=== PATIENT | female | born 1995 | race Caucasian/White ===

== ENCOUNTER 2016-08-17 10:58 | Emergency (ER) | payer MEDICAID ==
[~2016-08-17] VITALS: Ht 175.3 cm; Wt 136.1 kg
[2016-08-17] MEDS ORDERED: HYDROCHLOROTHIA25 M1 PO (11:08)
--- NOTE | 2016-08-17 11:23 | Emergency Room Report ---
History of Present Illness Time Seen by [id number] Presenting Problem in Triage Pt arrived:Walked Presenting Problem:PT ADVISES SHE WOKE UP THIS AM AND FELT LIKE SHE WAS SOA. 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 N Clinical Suspician of Infection? N Mental Status: 1 - Regular (Normal Baseline) Sepsis Risk:Low Sepsis Risk Have you (or family members/close friends) recently traveled outside the [place]? N If Yes, where/when: Have you had exposure to infectious disease within the past month? N TB? Other? Specify: Comment The patient states that she woke up this morning with shortness of breath, vomiting, and diarrhea. 3 episodes of vomiting and diarrhea. Her shortness of air feels like air hunger. No chest pain. No fever or coughing. No hemoptysis. No leg pain or swelling. No recent travel or hospitalizations, although she did have a pin removed from her RIGHT hip 2 months ago, she says it was done under local anesthetic. No history of asthma or other lung problems. Last normal menstrual period was in June and she wants a test. ALLERGIES Coded Allergies: No Known Allergies (08/17/16) Home Medications Reported Medications HYDROCHLOROTHIAZIDE (Hydrochlorothiazide) 25 MG PO DAILY History Medical History General CAD? No Angina: No [place]: No Hypertension? Yes Hyperlipidemia? No CHF? No DVT? No PE? No COPD? No Asthma? No Anemia? No GERD? No Gastric ulcers? No GI Bleed? No Hernia? No Thyroid Problems? No Hypothyroidism? No CVA? No Seizures? No Diabetes? No Renal Insuffiency? No End Stage Renal Disease? No UTI? No Stones? No BPH? No GB Disease: No Nephritic Syndrome? No Asplenia? No Hepatitis? No Sickle Cell Disease? No Arthritis? No Migraines? No Cataracts? No Glaucoma? No MRSA? No HIV? No TB? No Anxiety? No Depression? No Cancer? No More? 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 Social History Smoking Hx Smoker: Never Smoker Tobacco: No Alcohol Alcohol: No Review of Systems All Other Systems Reviewed and Negative Constitutional denies fever Respiratory denies cough, shortness of breath Cardiovascular denies chest pain Gastrointestinal denies abdominal pain, diarrhea, vomiting Physical Exam Vital Signs Vital Signs Date Time Temp Pulse Resp B/P Pulse O2 O2 Flow FiO2 Ox Delivery Rate 08/17 1143 102 16 147/98 98 08/17 1103 98.9 107 16 165/110 98 General Appearance obese Eye Exam - bilateral eye normal exam, bilateral eye PERRL, bilateral eye EOMI Ear, Nose, Throat hearing grossly normal, normal ENT inspection Neck normal inspection, non-tender, supple, full range of motion Respiratory Status Yes: trachea midline, chest symmetrical. No: respiratory distress. Lung Sounds bilateral: normal breath sounds, lungs clear. 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 No Results/Orders Laboratory Tests 08/17/16 1135: Sodium 143, Potassium 3.4 L, Chloride 105, Carbon Dioxide 29, BUN 8, Creatinine 0.5 L, Estimated Creat Clear 386 H, Estimated GFR (MDRD) 157, Glucose 91, Calcium 9.0, Total Bilirubin 0.2, AST 13 L, ALT 40, Alkaline Phosphatase 95, Troponin I < 0.02, Total Protein 7.2, Albumin 3.5, Globulin 3.7 H, Albumin/ Globulin Ratio 0.9 L, D-Dimer < 100, WBC 9.3, RBC 4.23, Hgb 12.6, Hct 37.7, MCV 89.0, RDW 13.2, Plt Count 341, MPV 5.8 L, Gran % 68.7, Gran # 6.4, Lymphocytes % 25.5, Monocytes % 4.6, Eosinophils % 0.9, Basophils % 0.2, Lymphocytes # 2.4, Monocytes # 0.4, Eosinophils # 0.1, Basophils # 0.0, PUBS MCHC 33.4, MCH 29.8 Current Medication Orders Sig/Jamal Start time Last Medication Dose Route Stop Time Status Admin Sodium Chloride 10 ML PRN PRN 08/17 1130 AC IV 08/18 1128 Orders Procedure Date/time Status ELECTROCARDIOGRAM REQUEST 08/17 112 Active CHEST(2 VIEWS-NOT PORTABLE) 08/17 112 Active IV SALINE LOCK 08/17 112 Active TROPONIN I 08/17 1128 Complete SERUM , QUAL 08/17 112 Complete D-DIMER 08/17 1128 Complete CBC WITH AUTO DIFF 08/17 1128 Complete CHEM 12 PROFILE 08/17 1128 Complete CM/EKG CM/EKG Comments EKG interpreted by Edouard Tao MD: Rhythm: sinus Rate: 75 [place]: normal Ectopy: none Conduction: normal ST Segment Changes: none T Wave Changes: none Q Waves: none No evidence of acute ischemia or injury Baseline artifact present, but I consider the EKG adequate for accurate interpretation. Progress - I estimate there is LOW risk for PULMONARY EMBOLISM, PULMONARY EDEMA, PNEUMONIA, PNEUMOTHORAX, STATUS ASTHMATICUS, ACUTE RESPIRATORY FAILURE, OR ACUTE CORONARY SYNDROME, thus I consider the discharge disposition reasonable. The patient declines any prescriptions for nausea or diarrhea. She feels this has resolved. Departure Departure Disposition DC Home or Self Care(routine) Clinical Impression Primary Impression: Acute gastroenteritis Secondary Impressions: Shortness of breath Condition STABLE Patient Instructions DI for Shortness of Breath, DI for Viral Gastroenteritis -- Adult Additional Instructions Additional instructions for SHORTNESS OF BREATH: See your physician as soon as possible for further evaluation. Return immediately if worsening shortness of breath or if vomiting, chest pain, fever, coughing of blood, or passing out. ED Critical Care Critical Care No at [id number]
[2016-08-17 11:44] LABS: HEMOGLOBIN 12.6 g/dL (12.2-16.2); LYMPH # 2.4 K/mm3 (0.7-4.5); LYMPH % 25.5 % (10-50.0)
[2016-08-17 11:58] LABS: BUN 8 mg/dL (7-18)
[2016-08-17 11:59] LABS: GFR (ESTIMATED) 157 ML/MIN (59-)
[2016-08-17 12:51] VITALS: BP 160/94
--- NOTE | 2016-08-17 14:56 | RADIOLOGY REPORT PS360 ---
CHEST(2 VIEWS-NOT PORTABLE) HISTORY: soa ORDERING PHYSICIAN: Edouard Tao MD PATIENT AGE: 21 years COMPARISON: None available FINDINGS: The cardiomediastinal silhouette and pulmonary vascularity are within normal limits. The lungs are clear without infiltrates, suspicious nodules, or pleural effusions. No acute bony abnormalities. There are mild degenerative changes in the thoracic spine. IMPRESSION: Negative chest, no acute finding
== END 2016-08-17 12:51 | disposition home or self-care (01) ==
LOC: ER 10:58
PROVIDERS: Emergency Medicine
DX: K52.9 Noninfective gastroenteritis and colitis, unspecified (principal); R06.02 Shortness of breath; I10 Essential (primary) hypertension; Z79.899 Other long term (current) drug therapy

== ENCOUNTER 2017-02-12 19:10 | Emergency (ER) | payer MEDICAID ==
[~2017-02-12] VITALS: Ht 175.3 cm; Wt 104.3 kg
[~2017-02-12 19:10] MED LIST: CIPRO 250MG TA250 MG PO; HYDROCHLOROTHIA25 M1 PO; ONDANSETRON4 M1 PO; PROTONIX40 MG PO; ZOFRAN4 MG PO
[2017-02-12] MEDS ORDERED: METOPROLOL SUCC25 M1 PO (19:24)
[2017-02-12] MEDS ORDERED: SERTRALINE 100100 MG PO (19:24)
--- NOTE | 2017-02-12 19:41 | Emergency Room Report ---
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 N Clinical Suspician of Infection? N Mental Status: 1 - Regular (Normal Baseline) Sepsis Risk:Low Sepsis Risk Have you (or family members/close friends) recently traveled outside the [place]? N If Yes, where/when: Have you had exposure to infectious disease within the past month? N TB? Other? Specify: 21 years old white female on control pills who woke up this morning with a headache took Tylenol then developed vomiting and abdominal pain followed by diarrhea. Her headache has resolved, but she vomited 4 times today. She is unable to tolerate by mouth intake. 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 N Clinical Suspician of Infection? N Mental Status: 1 - Regular (Normal Baseline) Sepsis Risk:Low Sepsis Risk Have you (or family members/close friends) recently traveled outside the [place]? N If Yes, where/when: Have you had exposure to infectious disease within the past month? N TB? Other? Specify: Cardiac Chest Pain Chest pain indicative of cardiac No Timing/Duration this evening Severity moderate Home Medications Active Scripts Pantoprazole Sodium (Protonix) 40 MG PO DAILY #30 ECT Prov: 09/16/16 ONDANSETRON HCL (Zofran 4MG Tab) 4 MG PO Q6HP PRN NAUSEA AND VOMITING #20 TAB Prov: 09/16/16 Reported Medications HYDROCHLOROTHIAZIDE (Hydrochlorothiazide) 25 MG PO DAILY Metoprolol Succinate Xl (Metoprolol ER 25MG) 25 MG PO DAILY Sertraline Hydrochloride (Sertraline 100MG) 100 MG PO DAILY (Arnaud GARCIA,Sarah Gomez) History Medical History General CAD? No Angina: No [place]: No Hypertension? Yes Hyperlipidemia? No CHF? No DVT? No PE? No COPD? No Asthma? No Anemia? No GERD? No Gastric ulcers? No GI Bleed? No Hernia? No Thyroid Problems? No Hypothyroidism? No CVA? No Seizures? No Diabetes? No Renal Insuffiency? No End Stage Renal Disease? No UTI? No Stones? No BPH? No GB Disease: No Nephritic Syndrome? No Asplenia? No Hepatitis? No Sickle Cell Disease? No Arthritis? No Migraines? No Cataracts? No Glaucoma? No MRSA? No HIV? No TB? No Anxiety? No Depression? No Cancer? No More? 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 Respiratory no symptoms reported Cardiovascular no symptoms reported Gastrointestinal see HPI, abdominal pain, diarrhea, nausea, vomiting Genitourinary no symptoms reported. Musculoskeletal no symptoms reported Skin no symptoms reported Psychiatric/Neurological see HPI, headache (resolved ) (Sunita Nicolas MD) Physical Exam Vital Signs Vital Signs Date Time Temp Pulse Resp B/P Pulse O2 O2 Flow FiO2 Ox Delivery Rate 02/13 1956 98.0 88 18 145/86 97 02/12 1914 97.9 107 18 151/92 97 - WBC >12,000 or <4,000 or 10% bands? 2 or more SIRS Criteria Met? B/P:151/92 MAP:111 Creatinine >2.0? UA output<0.5ml/kg/hr for 2 hrs? Platelet count >100,000? Lactate >2.0mmol/1? INR >1.2 or PTT > than 60 sec? Evidence of Organ Dysfunction? Provider documented clinical suspician of infection? N Sepsis Criteria Count: 1 Sepsis Risk: Low Sepsis Risk General Appearance normal appearance, WD/WN Eye Exam - bilateral eye normal exam, bilateral eye PERRL, bilateral eye EOMI Ear, Nose, Throat hearing grossly normal, normal ENT inspection Neck normal inspection, non-tender, supple, full range of motion Respiratory Status Yes: trachea midline, chest symmetrical, non tender chest. No: respiratory distress. Lung Sounds bilateral: normal breath sounds, lungs clear. 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 2 or more SIRS Criteria Met? B/P:145/86 MAP:111 Creatinine >2.0? UA output<0.5ml/kg/hr for 2 hrs? Platelet count >100,000? Lactate >2.0mmol/1? INR >1.2 or PTT > than 60 sec? Evidence of Organ Dysfunction? Provider documented clinical suspician of infection? N Sepsis Criteria Count: 1 Sepsis Risk: Low Sepsis Risk General Appearance no apparent distress Extremities normal inspection Strength 4 Upper Ext (L), 4 Upper Ext (R), 4 Lower Ext (L), 4 Lower Ext (R) Comment tender rt upper abd with pos murphys sign Skin intact (Arnaud GARCIA,Sarah Gomez) Medical Decision Making LABS/Meds/Orders Pt receiving controlled substance in ED? No Results/Orders Laboratory Tests 02/12/171999: Urine Color YELLOW, Urine Appearance SL CLOUDY, Urine pH 6.5, Ur Specific [place] >= 1.030, Urine Protein 1+ H, Urine Ketones NEGATIVE, Urine Blood TRACE -INTACT, Urine Nitrate NEGATIVE, Urine Bilirubin NEGATIVE, Urine Urobilinogen 0.2, Ur Leukocyte Esterase NEGATIVE, Urine RBC 3-5, Urine WBC OCC, Ur Squamous Epith Cells 5-10, Amorphous Sediment TRACE, Urine Mucus 2+, Urine Glucose NEGATIVE 02/12/17 1936: Sodium 137, Potassium 3.3 L, Chloride 99, Carbon Dioxide 30, BUN 9, Creatinine 0.7, Estimated Creat Clear 211 H, Estimated GFR (MDRD) 107, Glucose 118 H, Calcium 9.3, Total Bilirubin 0.3, AST 23, ALT 42, Alkaline Phosphatase 93, Total Protein 8.3 H, Albumin 4.0, Globulin 4.3 H, Albumin/Globulin Ratio 0.9 L, Amylase 32, Lipase 137, WBC 12.5, RBC 4.49, Hgb 12.9, Hct 39.4, MCV 87.6, RDW 13.4, Plt Count 337, MPV 7.7, Gran % 74.2, Gran # 9.2 H, Lymphocytes % 21.1, Monocytes % 3.5, Eosinophils % 1.1, Basophils % 0.2, Lymphocytes # 2.6, Monocytes # 0.4, Eosinophils # 0.1, Basophils # 0.0, PUBS MCHC 32.7, MCH 28.7 Current Medication Orders Sig/Jamal Start time Last Medication Dose Route Stop Time Status Admin Loperamide HCl 0 .STK-MED ONE 02/12 1947 DC PO Loperamide HCl 4 MG ONCE ONE 02/12 1945 DC 02/12 PO 02/12 Ondansetron HCl 8 MG ONCE ONE 02/12 1945 DC 02/12 IV 02/12 Sodium Chloride 1,000 ML .Q1H1M 02/12 1945 AC 02/12 IV 02/12 Sodium Chloride 10 ML PRN PRN 02/12 1945 AC IV 02/13 1942 Sodium Chloride 1,000 ML .STK-MED ONE 02/12 1945 DC IV Ondansetron HCl 4 MG ONCE ONE 02/12 1930 CAN IV 02/12 1931 Ondansetron HCl 0 .STK-MED ONE 02/12 1930 DC .ROUTE Sodium Chloride 10 ML PRN PRN 02/12 1930 AC IV 02/13 1926 Orders Procedure Date/time Status URINALYSIS/COMPLETE 02/12 2003 Complete URINE 02/12 2003 Complete DIARRHEA PANEL, PCR 02/12 1943 Active IV SALINE LOCK 02/12 1927 Active LIPASE 02/12 1927 Complete COMPLETE METABOLIC PANEL 02/12 1927 Complete CBC WITH AUTO DIFF 02/12 1927 Complete AMYLASE 02/12 1927 Complete Departure Departure Time of Disposition 1937 Condition STABLE Discharge Counseling Counseled pt/family regarding diagnosis, follow up needs ED Critical Care Critical Care No If Critical Care minutes are documented, the time involved in the performance of seperately reportable procedures was not counted toward critical care time documented. I directly delivered medical care to this critically ill and/or injured patient. Timely evaluation and treatment was necessary to address the significant organ system(s) dysfunction present in this patient. (Sunita Nicolas MD) Departure Disposition DC Home or Self Care(routine) Clinical Impression Primary Impression: NAUSEA WITH VOMITING, UNSPECIFIED Secondary Impressions: Abdominal pain Qualifiers: Abdominal location: right upper quadrant Qualified Code: R10.11 - Right upper quadrant pain DIARRHEA, UNSPECIFIED Patient Instructions DI for Vomiting -- Adult Additional Instructions fluids and see pcp for follow up and consider gb eval Discharge Counseling Counseled pt/family regarding diagnosis, test results (Sarah Lares MD) at 1941 at 2035
[2017-02-12 19:46] LABS: HEMOGLOBIN 12.9 g/dL (12.2-16.2); LYMPH # 2.6 K/mm3 (0.7-4.5); LYMPH % 21.1 % (10-50.0)
[2017-02-12 20:23] LABS: URINE BILIRUBIN - DIPSTICK NEGATIVE (NEG); URINE BLOOD TRACE-INTACT (NEG)
[2017-02-12 20:37] VITALS: BP 145/86
--- OUTSIDE RECORDS SUMMARY | 2017-02-17 21:52 | External Medical Summary Rpt | CCD ---
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 Care Glass Novelty Maker Name Role Phone GURMEET IRF, GURMEET Unavailable Unavailable IRF GURMEET IRF, GURMEET Unavailable Unavailable IRF ADLER, ADLER Unavailable Unavailable ADLER, ADLER Unavailable Unavailable ADLER, ADLER Unavailable Unavailable [facility], Unavailable Unavailable [facility] PALLAVI GARCIA MARTHA, Unavailable Unavailable PALLAVI GARCIA MARTHA JACKI MARTHA, Unavailable Unavailable JACKI MARTHA PREMA CRY, Unavailable Unavailable PREMA CRY PREMA CRY, Unavailable Unavailable PREMA CRY [place]NA JULIAN, Unavailable Unavailable [place] JULIAN DOBAY, III, DOBAY, Unavailable Unavailable III DOERGER KIR, DOERGER Unavailable Unavailable SKYE BLACK JR, FULLER, Unavailable Unavailable [facility] GILJOCELYN, VAMSI F, Unavailable Unavailable GILVAMSI BANKS F [facility], Unavailable Unavailable [facility] Unavailable Unavailable INC, [facility] Unavailable Unavailable HOSPITAL P, [facility] Un[facility] Un[facility] CARE, [place], [facility] [place] KAT LAR, KAT Unavailable Unavailable LAR KAT, EDGAR C, Unavailable Unavailable KAT EDGAR C [facility] [employer] Unavailable Unavailable [facility] [employer] [facility] [employer] Unavailable Unavailable [facility] [employer] MARTINA MACK Unavailable Unavailable MARTINA MACK Unavailable Unavailable [facility] Un[facility], [facility], Unavailable Unavailable [facility] Un[facility] Unavailable [facility], [facility], Unavailable Unavailable [facility] Unavailable Unavailable INC, [facility] Unavailable Unavailable CARE, [facility] Unavailable Unavailable CARE, [facility] Unavailable Unavailable [employer], Unavailable Unavailable PLLC, [facility], Unavailable Unavailable [facility] Unavailable Unavailable OF NOTH, [facility] NOT RENUSCH, RENUSCH Unavailable Unavailable SCIFRES, SCIFRES Unavailable Unavailable SCIFRES, SCIFRES Unavailable Unavailable THOMAS, THOMAS Unavailable Unavailable SMALARA TERRENCE, SMALARA Unavailable Unavailable [facility], [facility] Unavailable Unavailable [facility], [facility] SOWER GORDON, SOWER GORDON Unavailable Unavailable [facility] Unavailable Unavailable 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 Unavailable Unavailable [facility], [facility] Unavailable Unavailable [employer] [facility], Unavailable Unavailable INC, [facility] WILSHERE DERRICK, Unavailable Unavailable WILSHERE DERRICK Purpose Continuity of Care Document - 06-01-2007 through 2016 Problems Code Diagnosis DOS Provider Status H5203 HYPERMETROP 10-27-2016 SCIFRES IA BILATERAL H5213 MYOPIA 10-27-2016 ADLER BILATERAL Z0100 ENCOUNTER 10-27-2016 MARTINA EXAM EYES & VISION W/O ABNORMAL FIND R1010 UPPER 09-16-2016 [facility] PAIN PLL[facility] UNSPECIFIED R1013 EPIGASTRIC 09-16-2016 [facility]IN [facility] I10 ESSENTIAL 09-02-2016 [facility] HYP[facility] N N3000 ACUTE 09-02-2016 [facility] CYSTITIS [facility], WITHOUT PLLC HEMATURIA N390 URINARY 09-02-2016 [facility] TRACT PHYSICI[facility], INFECTION [facility] SITE NOT SPECIFIED R112 NAUSEA WITH 09-02-2016 [facility] VOMITING [facility], UNSPECIFIED [facility] J209 ACUTE 08-23-2016 [facility] UNSPECIFIED INC K529 NONINFECTIV 08-17-2016 [facility] E PHYSICIANS, GASTROENTER [facility] IT[facility] & COLITIS UNS R0602 SHORTNESS 08-17-2016 [facility] OF BREATH PHYSICIANS, [facility] [id number] OTHER LONG 08-17-2016 [facility] J0390 ACUTE 06-14-2016 [facility] UNSPECIFIED E669 OBESITY 05-30-2016 [facility] OF UNSPECIFIED [employer] N926 IRREGULAR 05-30-2016 [facility] OF MENSTRUATIO [employer] N UNSPECIFIED A599 TRICHOMONIA 05-20-2016 [facility] U[facility]PECIFIED [facility] [id number] ENCOUNTER 05-16-2016 [facility] OF LEGAL AIDE EXAM [employer] GENERAL RTN W/O ABNORMAL FIND Z124 ENCOUNTER 05-16-2016 LAB[facility] OF OTHER [employer] SCREENING MALIG NEOPLASM CERVIX K029 DENTAL 03-08-2016 [facility] UNSPECIFIED HOSPITA K0889 OTHER 03-08-2016 [facility] SPECIFIED N EMERGENCY DISORDERS PHYS OF TEETH SUPPORT STRCT J020 STREPTOCOCC 01-18-2016 [facility] PHARYNGITIS SYSTEMS, INC B354 TINEA 04-23-2015 [facility] INC 4019 UNSPECIFIED 01-03-2015 [facility] HYPERTENSIO [place]OSPITA N 50960 UNSPECIFIED 01-03-2015 [facility] 5259 UNSPECIFIED 01-03-2015 [facility] DISORDER N EMERGENCY TEETH&SUPPO SERV RTING STRUCTURES 05381 ALTERED 12-14-2014 [facility] STATUS OF [facility] 72972 GENERALIZED 11-17-2014 NEW [facility] 91933 UNSPECIFIED 08-01-2014 NEW [facility] INFECTION MED CTR IN CCE & UNS SITE 41308 DEHYDRATION 08-01-2014 NEW [facility] MED [facility] 2768 HYPOPOTASSE 08-01-2014 NEW [facility] 5589 OTH&UNSPEC 07-30-2014 ST NONINFECTIO [facility] 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 GASTROENTER ST ITIS&COLITI S 5718 OTHER 07-30-2014 RAD[facility] CHRONIC ASSOCIATES NONALCOHOLI OF [facility] LIVER DISEASE 79613 NAUSEA WITH 07-30-2014 RADI[facility] VOMITING ASSOCIATES OF [facility] 93301 DIARRHEA 07-30-2014 [facility] OF [facility] 55187 ABDOMINAL 07-30-2014 RADIOLOGY PAIN, ASSOCIATES UNSPECIFIED OF [facility] SITE V5869 LONG-TERM 07-30-2014 ST (CURRENT) [facility] USE OF MED CTR 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 OTHER ST MEDICATIONS 7291 UNSPECIFIED 04-14-2014 NEW [facility] MYOSITIS PRACTICE V7109 OBSERVATION 03-13-2014 [facility] SUSPECTED CARE MENTAL CONDITION 4659 ACUTE URIS 02-28-2014 NEW OF [facility] UNSPECIFIED FAMILY SITE PRACTICE 7862 COUGH 02-28-2014 [facility] PRACTICE 9221 CONTUSION 01-12-2014 NEW OF [facility] WALL MED CTR 9598 INJURY 01-12-2014 NEW OTH&UNSPEC [facility] O[facility] SPEC [facility] SITES INCL MULTIPLE 7089 UNSPECIFIED 11-20-2013 NEW [facility] 69804 HIDRADENITI 07-30-2013 NEW [facility] CL 4660 ACUTE 05-20-2013 NEW [facility]ONCHITIS [facility] 462 ACUTE 06-01-2012 NEW PHARYNGITIS [facility] 3671 MYOPIA 12-20-2011 GURMEET IRF 3688 OTHER 12-19-2011 GURMEET IRF SPECIFIED VISUAL DISTURBANCE S 61753 INSOMNIA 12-01-2011 PREMA UNSPECIFIED CRY 87468 OTHER 12-01-2011 PREMA MALAISE AND CRY FATIGUE 42368 CHEST PAIN 12-01-2011 PREMA UNSPECIFIED CRY 4619 ACUTE 08-03-2011 NEW SINUSITIS, [facility] UNSPECIFIED PRIMARY CARE CL 05529 OBESITY, 01-22-2010 [facility] UNSPECIFIED [facility] INC 4779 ALLERGIC 01-22-2010 [facility] RHINITIS HEALTH CAUSE SYSTEMS, UNSPECIFIED INC 7821 RASH AND 01-22-2010 [facility] OTHER HEALTH NONSPECIFIC SYSTEMS, SKIN INC ERUPTION 0088 INTESTINAL 01-19-2010 NEW INFECTION [facility] DUE TO MED CTR OTHER ORGANISM NEC 3814 NONSUPPRATV 09-18-2009 NEW OTITIS [facility] MEDIA NOT MEDICAL CTR SPEC RURAL ACUT/[facility] 84137 OVERWEIGHT 07-21-2009 [facility] 95612 UNSPECIFIED 07-21-2009 [facility] CONJUNCTIVI MEDICAL CTR TIS [facility] 65861 UNSPECIFIED 05-22-2009 NEW SITE OF [facility] ANKLE MED CTR SPRAIN AND STRAIN 50984 SPRAIN AND 05-22-2009 NEW STRAIN OF [facility] UNSPECIFIED MED CTR SITE OF FOOT E8859 FALL FROM 05-22-2009 NEW OTHER [facility] SLIPPING MED CTR TRIPPING OR STUMBLING 490 BRONCHITIS 02-26-2009 NEW NOT [facility] SPECIFIED MED CTR ACUTE OR CHRONIC 3829 UNSPECIFIED 02-12-2008 NEW OTITIS [facility] MEDIA [facility]ICAL CTR [facility] 24221 VOMITING 02-12-2008 NEW ALONE [facility] V202 ROUTINE 12-17-2007 NEW OR [facility] CHILD [facility]ICAL [facility] 7806 FEVER & OTH 06-25-2007 [facility] PHYSIOLOGIC [facility] CTR [facility] V720 EXAMINATION 06-01-2007 [facility] AC[facility] Allergies, Adverse Reactions, Alerts Clinical Alert Notifications Alert Member has >/= 10 ED visits within the past 365 days Medications Na ND Rx Da Fi Fi Am Da Di Ph RX Ph St me C No te ll ll ou ys ag ar # ys at rm s nt no ma ic us Or Da si cy ia de te s n re d ME 55 08 09 30 30 00 CU Ac TO 11 -1 -1 .0 00 LL ti IL 10 7- 5- 00 01 ve OL 46 20 20 19 FA OL 60 17 17 52 TX 5 77 LY KEITH CC PH AR ER MA CY 25 MG TA B HY 16 08 09 30 [address] 72 -1 -1 .0 00 LL ti OC 90 7- 5- 00 01 ve HL 18 20 20 19 FA OR 31 17 17 52 TX OT 7 78 LY HI AZ PH ID AR E MA 25 CY MG TA B SE 65 08 09 30 30 00 CU Ac RT 86 -1 -1 .0 00 LL ti RA 20 7- 5- 00 01 ve LI 01 20 20 19 FA NE 30 17 17 52 TX 5 79 LY HC L PH 10 AR 0 MA MG CY TA BL ET SE 65 07 08 30 30 00 CU Ac RT 86 -1 -1 .0 00 LL ti RA 20 4- 1- 00 01 ve LI 01 20 20 19 FA NE 30 17 17 52 TX 5 79 LY HC L PH 10 AR 0 MA MG CY TA BL ET HY 16 07 08 30 [address] 72 -1 -1 .0 00 LL ti OC 90 4- 1- 00 01 ve HL 18 20 20 19 FA OR 31 17 17 52 TX OT 7 78 LY HI AZ PH ID AR E MA 25 CY MG TA B ME 55 07 08 30 30 00 CU Ac TO 11 -1 -1 .0 00 LL ti IL 10 4- 1- 00 01 ve OL 46 20 20 19 FA OL 60 17 17 52 TX 5 77 LY KEITH CC PH AR ER MA CY 25 MG TA B SE 65 05 06 30 30 00 CU Ac RT 86 -2 -1 .0 00 LL ti RA 20 4- 6- 00 01 ve LI 01 20 20 19 FA NE 30 17 17 52 TX 5 79 LY HC L PH 10 AR 0 MA MG CY TA BL ET HY 16 05 06 30 [address] 72 -2 -1 .0 00 LL ti OC 90 4- 6- 00 01 ve HL 18 20 20 19 FA OR 31 17 17 52 TX OT 7 78 LY HI AZ PH ID AR E MA 25 CY MG TA B ME 55 05 06 30 30 00 CU Ac TO 11 -2 -1 .0 00 LL ti IL 10 4- 6- 00 01 ve OL 46 20 20 19 FA OL 60 17 17 52 TX 5 77 LY KEITH CC PH AR ER MA CY 25 MG TA B PA 68 05 06 30 30 00 WA Ac NT 64 -1 -0 .0 00 L- ti OP 50 2- 9- 00 07 MA ve RA 49 20 20 48 RT ZO 25 17 17 75 LE 4 96 PH AR SO MA D CY DR #5 40 91 MG TA B ON 57 05 06 20 5 00 WA Ac DA 23 -1 -0 .0 00 L- ti NS 70 2- 9- 00 07 MA ve ET 07 20 20 48 RT RO 71 17 17 75 N 0 94 PH OD AR T MA 4 CY MG #5 TA 91 BL ET ON 57 04 05 7. 3 00 WA Ac DA 23 -2 -2 00 00 L- ti NS 70 8- 6- 0 07 MA ve ET 07 20 20 48 RT RO 71 17 17 50 N 0 12 PH OD AR T MA 4 CY MG #5 TA 91 BL ET CI 00 04 05 6. 3 00 WA Ac IL 14 -2 -2 00 00 L- ti OF 39 8- 6- 0 07 MA ve LO 92 20 20 48 RT XA 70 17 17 50 CI 1 11 PH N AR HC MA L CY 25 0 #5 MG 91 TA B ME 68 04 05 30 30 00 CU Ac TO 00 -1 -1 .0 00 LL ti IL 10 3- 2- 00 01 ve OL 12 20 20 19 FA OL 10 17 17 52 TX 3 77 LY KEITH CC PH AR ER MA CY 25 MG TA B HY 16 04 05 30 [address] 72 -1 -1 .0 00 LL ti OC 90 3- 2- 00 01 ve HL 18 20 20 19 FA OR 31 17 17 52 TX OT 7 78 LY HI AZ PH ID AR E MA 25 CY MG TA B SE 65 04 05 30 30 00 CU Ac RT 86 -1 -1 .0 00 LL ti RA 20 3- 2- 00 01 ve LI 01 20 20 19 FA NE 30 17 17 52 TX 5 79 LY HC L PH 10 AR 0 MA MG CY TA BL ET SE 65 03 04 30 30 00 CU Ac RT 86 -1 -0 .0 00 LL ti RA 20 4- 7- 00 01 ve LI 01 20 20 16 FA NE 30 17 17 47 TX 5 91 LY HC L PH 10 AR 0 MA MG CY TA BL ET ME 68 03 04 30 30 00 CU Ac TO 00 -1 -0 .0 00 LL ti IL 10 4- 7- 00 01 ve OL 12 20 20 16 FA OL 10 17 17 47 TX 3 98 LY KEITH CC PH AR ER MA CY 25 MG TA B HY 00 03 04 30 [address] 17 -1 -0 .0 00 LL ti OC 22 4- 7- 00 01 ve HL 08 20 20 16 FA OR 38 17 17 47 TX OT 0 99 LY HI AZ PH ID AR E MA 25 CY MG TA B SE 65 02 03 30 30 00 CU Ac RT 86 -1 -1 .0 00 LL ti RA 20 5- 0- 00 01 ve LI 01 20 20 16 FA NE 30 17 17 47 TX 5 91 LY HC L PH 10 AR 0 MA MG CY TA BL ET ME 68 02 03 30 30 00 CU Ac TO 00 -1 -1 .0 00 LL ti IL 10 5- 0- 00 01 ve OL 12 20 20 16 FA OL 10 17 17 47 TX 3 98 LY KEITH CC PH AR ER MA CY 25 MG TA B HY 00 02 03 30 [address] 17 -1 -1 .0 00 LL ti OC 22 5- 0- 00 01 ve HL 08 20 20 16 FA OR 38 17 17 47 TX OT 0 99 LY HI AZ PH ID AR E MA 25 CY MG TA B ME 29 01 02 4. 1 00 CU Ac TR 30 -1 -1 00 00 LL ti ON 00 3- 0- 0 01 ve ID 22 20 20 17 FA AZ 70 17 17 83 TX OL 5 51 LY E 50 PH 0 AR MG MA CY TA BL ET SE 65 01 02 30 30 00 CU Ac RT 86 -1 -1 .0 00 LL ti RA 20 8- 0- 00 01 ve LI 01 20 20 16 FA NE 30 17 17 47 TX 5 91 LY HC L PH 10 AR 0 MA MG CY TA BL ET ME 68 01 02 30 30 00 CU Ac TO 00 -1 -1 .0 00 LL ti IL 10 8- 0- 00 01 ve OL 12 20 20 16 FA OL 10 17 17 47 TX 3 98 LY KEITH CC PH AR ER MA CY 25 MG TA B HY 00 01 02 30 [address] 17 -1 -1 .0 00 LL ti OC 22 8- 0- 00 01 ve HL 08 20 20 16 FA OR 38 17 17 47 TX OT 0 99 LY HI AZ PH ID AR E MA 25 CY MG TA B FL 00 01 02 2. 7 00 CU Ac UC 17 -0 -0 00 00 LL ti ON 25 9- 3- 0 01 ve AZ 41 20 20 17 FA OL 21 17 17 74 TX E 1 62 LY 15 0 PH MG AR MA TA CY BL ET BU 00 01 02 30 30 00 CU Ac SP 11 -0 -0 .0 00 LL ti IR 51 6- 3- 00 01 ve ON 69 20 20 17 FA E 20 17 17 71 TX HC 2 74 LY L 15 PH AR MG MA CY TA BL ET SE 65 12 01 30 30 00 CU Ac RT 86 -1 -0 .0 00 LL ti RA 20 4- 9- 00 01 ve LI 01 20 20 16 FA NE 30 16 17 47 TX 5 91 LY HC L PH 10 AR 0 MA MG CY TA BL ET ME 68 12 01 30 30 00 CU Ac TO 00 -1 -0 .0 00 LL ti IL 10 4- 9- 00 01 ve OL 12 20 20 16 FA OL 10 16 17 47 TX 3 98 LY KEITH CC PH AR ER MA CY 25 MG TA B HY 00 12 01 30 [address] 17 -1 -0 .0 00 LL ti OC 22 4- 9- 00 01 ve HL 08 20 20 16 FA OR 38 16 17 47 TX OT 0 99 LY HI AZ PH ID AR E MA 25 CY MG TA B DI 00 09 09 0 30 8 NO 79 WILBERT Ac PH 37 -1 -1 .0 RT 23 HN ti EN 80 4- 4- 00 H 63 SO ve OX 41 20 20 PA N YL 51 10 10 RK LA AT 0 RR E- PH Y AT AR C RO MA P CY 2. 5- IN 0. C 02 5 IL 57 09 09 0 15 6 NO 79 WILBERT Ac OM 66 -1 -1 .0 RT 23 HN ti ET 40 4- 4- 00 H 64 SO ve GUAN 10 20 20 PA N ZI 88 10 10 RK LA NE 8 RR PH Y 25 AR C MA MG CY TA IN BL C ET HY 00 07 07 0 30 30 NO [address] 60 -3 -3 .0 RT 62 LB ti OC 33 0- 0- 00 H 01 ER ve HL 85 20 20 PA T OR 53 10 10 RK DE OT 2 NI HI PH SE AZ AR F ID MA E CY 12 .5 IN C MG CP AM 00 05 05 0 20 10 NO 77 GI Ac OX 78 -1 -1 .0 RT 69 LB ti IC 15 4- 4- 00 H 92 ER ve IL 06 20 20 PA T LI 10 10 10 RK DE N 1 NI 87 PH SE 5 AR F MG MA CY TA BL IN ET C HY 00 05 05 0 30 30 NO [address] 60 -1 -1 .0 RT 69 LB ti OC 33 4- 4- 00 H 93 ER ve HL 85 20 20 PA T OR 53 10 10 RK DE OT 2 NI HI PH SE AZ AR F ID MA E CY 12 .5 IN C MG CP 00 03 03 0 3. 7 NO 76 WILBERT Ac GA 06 -1 -1 00 RT 91 HN ti MO 54 6- 6- 0 H 31 SO ve X 01 20 20 PA N 0. 30 10 10 RK LA 5% 3 RR PH Y EY AR C E MA DR CY OP S IN C 00 03 03 0 30 30 NO 76 WILBERT Ac 09 -1 -1 .0 RT 91 HN ti 51 6- 6- 00 H 28 SO ve 29 20 20 PA N 00 10 10 RK LA 6 RR PH Y AR C MA CY IN C AZ 00 03 03 0 6. 5 NO 76 WILBERT Ac IT 09 -1 -1 00 RT 91 HN ti HR 37 6- 6- 0 H 26 SO ve OM 14 20 20 PA N YC 61 10 10 RK LA IN 8 RR PH Y 25 AR C 0 MA MG CY TA IN BL C ET LO 37 01 01 00 30 30 BA 24 BA Ac RA 20 -1 -3 .0 KE 32 UM ti TA 50 3- 0- 00 RS 50 AN ve DI 34 20 20 N NE 66 09 09 PH MD 5 AR 10 MA ER CY IC MG C TA BL ET 54 10 10 00 12 6 NO 70 CU Ac 83 -0 -2 0. RT 03 LB ti 80 7- 3- 00 H 30 ER ve 54 20 20 0 PA TS 48 08 08 RK ON 0 PH AD AR AM M D IN C AZ 00 10 10 00 6. 5 NO 70 CU Ac IT 09 -0 -2 00 RT 03 LB ti HR 37 7- 3- 0 H 28 ER ve OM 14 20 20 PA TS YC 61 08 08 RK ON IN 8 PH AD 25 AR AM 0 M D MG IN C TA BL ET 49 02 03 00 20 10 NO 67 No Ac 88 -1 -2 0. RT 14 t ti 40 8- 6- 00 H 37 Av ve 20 20 20 0 PA ai 17 08 08 RK la 0 bl PH e AR M IN C 00 02 03 00 12 4 NO 67 No Ac 52 -1 -2 0. RT 14 t ti 56 8- 6- 00 H 36 Av ve 75 20 20 0 PA ai 21 08 08 RK la 6 bl PH e AR M IN C Procedures Procedure DOS Code Location Performer Comment OPHTH [address] [facility] 7 XM&EVAL COMPRE NEW PT 1/> VST LENS V2784 NAYELY ADLER POLYCARBO 7 JOHNNY OR EQUAL ANY INDEX PER LENS SCRATCH V2760 ADLER ADLER RESISTANT 7 COATING PER LENS 1 VISN V2103 NAYELY ADLER PLANO 7 TO+/-4.00 D SPHER 0.12-2.00 D CYL EA FRAMES V2020 ADLER NAYELY PURCHASES 7 FITTING 36851 SCIFRES SCIFRES SPECTACLE 7 S XCPT APHAKIA MONOFOCAL CULTURE 68805 [facility] BACTERIAL 7 [facility] INC INC QUANTTATI VE COLONY COUNT URINE URINE 68154 [facility] TEST INC [place] [address] [facility] LIPASE 7 [facility] INC INC 82011 [facility] ABDOMINAL 7 [facility] REAL INC INC TIME W/IMAGE LIMITED BLOOD 43870 [facility] COUNT 7 [facility] COMPLETE INC INC AUTO&AUTO DIFRNTL WBC GONADOTRO 79449 [facility] PIN 7 [facility] CHORIONIC INC INC QUALITATI VE URNLS DIP 74999 [facility] STICK/TAB INC INC [place] [address] [facility] AMYLASE 7 [facility] INC INC COMPREHEN 90503 [facility] SIVE 7 [facility] METABOLIC INC INC PANEL URNLS DIP 52025 [facility] 7 [facility] STICK/TAB INC INC LET REAGENT AUTO MICROSCOP Y CULTURE 72760 [facility] BACTERIAL 7 [facility] INC INC QUANTTATI VE COLONY COUNT URINE URINE 24869 [facility] 7 [facility] TEST INC INC VISUAL COLOR CMPRSN METHS IAADIADOO 16846 [facility] 7 [facility] INFLUENZA INC INC IAADIADOO 78908 [facility] 7 [facility] STREPTOCO INC INC CCUS GROUP A ECG 15035 SUZIE RENUSCH ROUTINE 7 PHYSICIAN ECG S, PLLC W/LEAST 12 LDS I&[place] [address] [facility] TROPONIN 7 [facility]P QUANTITAT INC INC HEATHER COMPREHEN 64722 [facility] SIVE 7 [facility] METABOLIC INC INC PANEL RADIOLOGI 08807 [facility] C EXAM 7 [facility] CHEST 2 INC INC VIEWS FRONTAL&L ATERAL BLOOD 86990 [facility] COUNT 7 [facility] COMPLETE INC INC AUTO&AUTO DIFRNTL WBC GONADOTRO 54000 [facility] PIN 7 [facility] HOS[facility] CHORIONIC INC INC QUALITATI VE ECG 07206 [facility] ROUTINE 7 [facility] ECG INC INC W/LEAST 12 LDS TRCG ONLY W/O I&R FIBRIN 57583 [facility] DGRADJ 7 [facility] HOSP PRODUCTS INC INC D-DIMER QUAL/SEMI MARGARITA INJECTION J0561 [facility] ST. 7 [facility] PENICILLI SADI AVITIA N G BENZATHIN E 146455 UNITS THERAPEUT [address] [facility] IC 7 [facility]SON PROPHYLAC SADI AVITIA TIC/DX INJECTION SUBQ/IM GONADOTRO 09981 [facility] OF [facility] OF PIN 7 [place], [place], LUTEINIZI INC. INC. NG HORMONE BLOOD 16640 LAB[facility] OF [facility] OF COUNT 7 [facility], [place] [address] LABONE OF [facility] OF THYROID 7 [place], STIMULATI INC. INC. NG HORMONE TSH COMPREHEN 59753 LAB[facility] OF LAB[facility] OF SIVE 7 [place] [place], [place] [address] LABONE OF LABONE OF ESTRADIOL 7 [place], INC. INC. GONADOTRO 99970 LABONE OF LABONE OF PIN 7 [place], FOLLICLE INC. [place] [address] LABONE OF LAB[facility] OF SEX 7 [facility] [place], HORMONE INC[place] [address] LABONE OF LABONE OF TESTOSTER 7 [place] [place], ONE TOTAL INC. INC. URINE 60469 [employer] 7 POINT TEST FAMILY VISUAL CARE, IN COLOR CMPRSN METHS CYTP C/V 16276 LABONE OF LABONE OF AUTO THIN 7 [facility] [place], LYR INC. INC. PREPJ SCR MNL RESCR PHYS IAADIADOO 43267 [facility] 6 The [employer], CCUS INC GROUP A HEMOGLOBI 30974 [facility] N 6 DIAGNOSTI DIAGNOSTI GLYCOSYLA CS CS GREYSON A1C COMPREHEN 60733 [facility] SIVE 6 DIAGNOSTI DIAGNOST[place] [address] [facility] THYROID 6 DIAGNOSTI DIAGNOSTI STIMULATI CS CS NG HORMONE TSH RADIOLOGI 15236 RADIOLOGY BRANDSER C EXAM 5 MARTHA CHEST 2 ASSOCIATE VIEWS S [place] NOTH FRONTAL&[place] [address] NEW NEW INFUSION 5 [facility] THERAPY/P MED CTR MED CTR ROPHYLAXI S /DX 1ST TO 1 HR BLOOD 54872 NEW NEW COUNT 5 [facility] COMPLETE MED CTR MED CTR AUTO&[place] [address] NEW NEW LIPASE 5 [facility] [place] [address] NEW NEW INFUSION 5 [facility] HYDRATION MED CTR MED CTR EACH ADDITIONA L HOUR TOXIN/ANT 26263 NEW NEW ITOXIN 5 [facility] ASSAY [place] [address] NEW NEW AMYLASE 5 [facility] MED CTR MED CTR COMPREHEN 31694 NEW NEW SIVE 5 [facility] METABOLIC MED CTR MED CTR PANEL COLLECTIO 66646 NEW NEW N VENOUS 5 [facility] BLOOD MED CTR MED CTR VENIPUNCT URE INJECTION J2405 NEW NEW 5 [facility] ONDANSETR MED CTR MED CTR ON HCL PER 1 MG UNCLASSIF J3490 NEW NEW IED DRUGS 5 [facility] [place] [address] RADIOLOGY DOERGER ABDOMEN & 5 KIR PELVIS ASSOCIATE W/CONTRAS [facility] IAADIADOO 99139 NEW SMALARA 4 [facility]FL[facility] PSYCHOTHE [address] W/PATIENT CARE CARE 60 MINUTES PSYCHOTHE 64065 [facility] [address] W/PATIENT CARE CARE 60 MINUTES IAADIADOO 93209 NEW PREMA 3 [facility] CRY INFLUENZA PRIMARY CARE CL FRAMES V2020 GURMEET GURMEET PURCHASES 2 IRF IRF FITTING 07888 GURMEET GURMEET SPECTACLE 2 IRF IRF S XCPT APHAKIA MONOFOCAL SPHERE V2100 GURMEET GURMEET SINGLE 2 IRF IRF VISION PLANO +/- 4.00 PER LENS DETERMINA 56924 GURMEET GURMEET TION 2 [place] [address] NEW NEW STREPTOCO 9 [facility] CCUS MED [facility] GROUP A IAADIADOO 41524 NEW NEW 9 [facility] INFLU[facility] MED CTR COLLECTIO 18883 NEW NEW N VENOUS 9 HORIZONS HORIZONS BLOOD MED CTR MED CTR VENIPUNCT URE IAADIADOO 39926 Y[place]ANDA HILL 8 HORIZONS [place] [facility] CTR [facility] IAADIADOO [address]44[address] Josefina UNGER [facility] Encounters Encounter Start End Date Code Location Performer Type Date HOSPITAL TRENT - Pam 7 [facility] T EMERGENCY 64953 SUZIE BLACK, 7 7 PHYSIC[facility] H[facility]URGE NT SEVERITY EMERGENCY 26607 TRENT 7 7 [facility] INC T VISIT LOW/MODER SEVERITY EMERGENCY 10818 SUZIE YUN, 7 7 PHYSICIAN III [facility] H[facility]/URGE NT SEVERITY EMERGENCY 92111 TRENT 7 7 [facility] DEPARTMEN INC T VISIT LOW/MODER SEVERITY HOSPITAL TRENT - 7 7 [facility]EN INC T HOSPITAL TRENT - 7 7 [facility] T OFFICE 71363 [facility] T V[facility]IT 5 INC MINUTES HOSPITAL TRENT - 7 7 [facility] OUTPATIEN INC EMERGENCY 18714 SUZIE [facility] DEPT 7 7 PHYSICIAN VISIT S, PLLC HIGH SEVERITY& THREAT FUNCJ EMERGENCY 16603 TRENT 7 7 [facility] DEPARTMEN INC T VISIT MODERATE SEVERITY EMERGENCY 34009 [facility] 7 7 EMERGENCY DEPARTMEN T VISIT PHYSICIAN HIGH/URGE S NT SEVERITY EMERGENCY 17367 ST. 7 7 [facility] T VISIT MODERATE SEVERITY [facility]OSPITAL ST[facility] - 7 7 [facility] T OFFICE 18385 SUDHEER ADLER OUTPATIEN 7 7 POINT T VISIT FAMILY 10 CARE, IN MINUTES PERIODIC 69817 SUDHEER ADLER PREVENTIV 7 7 POINT E MED EST FAMILY PATIENT CARE, IN 18-39 YRS [facility] - 6 6 N OUTPATIEN COMMUNTIY T HOSPITA EMERGENCY 82761 [facility] LOW/MODER SEVERITY EMERGENCY 75698 [facility] 6 6 ORESTES SCO DEPARTMEN EMERGENCY T VISIT PHYS MODERATE SEVERITY OFFICE 72209 [facility] OUT[facility] 6 6 HEALTH T VISIT SYSTEMS, 25 INC MINUTES OFFICE 82482 [facility] OUTPATIEN 5 5 HEALTH DERRICK T NEW 30 SYSTEMS, MINUTES [facility] - 5 5 N OUTPATIEN COMMUNTIY T HOSPITA EMERGENCY 25360 [facility] 5 5 N DEPARTMEN COMMUNTIY T VISIT HOSPITA MODERATE SEVERITY OFFICE 38422 YOLANDA RENAEEN 5 5 HORIZONS LAR T VISIT FAMILY 15 PRACTICE MINUTES OFFICE [id number] YOLANDA RENAEEN 5 5 [facility] L[facility] T VISIT FAMILY 10 PRACTICE MINUTES [facility] NEW - 5 5 [facility] T EMERGENCY 39819 NEW 5 5 [facility] T VISIT HIGH/URGE NT SEVERITY EMERGENCY 67054 [facility] DE[facility] 5 5 EMERGENCY VISIT HIGH PHYSICIAN SEVERITY& S [facility]AT [facility] - 5 5 [facility] T 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 ST EMERGENCY [address] ST 5 5 [facility] T VISIT 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 ST MODERATE SEVERITY OFFICE 05337 YOLANDA RENAEEN 4 4 [facility] T VISIT FAMILY 10 PRACTICE MINUTES OFFICE 98329 YOLANDA NEELYPATIEN 4 4 [facility] LAR T VISIT FAMILY 15 PRACTICE MINUTES EMERGENCY 02478 NEW 4 4 [facility] T VISIT MODERATE SEVERITY [facility]OSP[facility] NEW - 4 4 [facility] T EMERGENCY 87495 NEW 4 4 [facility] T VISIT LOW/MODER SEVERITY [facility]OSPITAL NEW - 4 4 [facility] T OFFICE 14477 NEW [place] OUTPATIEN 4 4 [facility] TERRENCE T VISIT PRIMARY 15 CARE CL MINUTES OFFICE 86773 NEW KAT OUTPATIEN 4 4 [facility] LAR T VISIT PRIMARY 15 CARE CL MINUTES OFFICE 03966 NEW SMALARA OUTPATIEN 3 3 [facility] TERRENCE T VISIT PRIMARY 15 CARE CL MINUTES OFFICE 72331 NEW PREMA OUTPATIEN 3 3 [facility] CRY T VISIT PRIMARY 15 CARE CL MINUTES OFFICE 12596 NEW KAT OUTPATIEN 2 2 [facility] LAR T VISIT PRIMARY 15 CARE CL MINUTES OFFICE 88750 GURMEET GURMEET OUTPATIEN 2 2 IRF IRF T NEW 45 MINUTES OFFICE 16891 PREMA PREMA OUTPATIEN 2 2 CRY CRY T VISIT 25 MINUTES OFFICE 41323 NEW PREMA OUTPATIEN 2 2 [facility] CRY T VISIT PRIMARY 15 CARE CL MINUTES OFFICE 17674 PALLAVI PALLAIV OUTPATIEN 2 2 MD MARTHA GARCIA MARTHA T VISIT 15 MINUTES OFFICE 78210 [facility] PREMA OUTPATIEN 1 1 CRY CRY T VISIT 15 MINUTES OFFICE 62014 [facility] OUT[facility] 0 0 [facility] T NEW 45 SYSTEMS, MINUTES [facility] NEW - 0 0 [facility] T EMERGENCY 60855 ACUTE KAT 0 0 CARE LAR DEPARTMEN BILLING T VISIT [facility] MODERATE SEVERITY EMERGENCY 19828 NEW 0 0 [facility] T VISIT LIMITED/M INOR PROB OFFICE 04457 NEW KAREEM MORRIS 0 0 [facility] VAMSI F T VISIT MED[facility] 15 [facility] OFFICE 54333 KAREEM UNGER 0 0 [facility] [place] T VISIT MEDICAL 15 CTR [facility] NEW - 0 0 [facility] NEW - 9 9 [facility] T EMERGENCY 67197 NEW 9 9 [facility] DEPART[facility] MED [facility] T VISIT LOW/MODER SEVERITY OFFICE 19969 YOLANDA SERNA 8 8 [place] V[facility] MED[facility] 15 CTR [facility] PERIODIC 57554 YOLANDA HILL PREVENTIV 8 8 [place] [facility] MED EST MEDICAL PATIENT CTR [facility] OFFICE 90352 KAREEM UNGER 8 8 [facility] [place] T VISIT MEDICAL 15 CTR [facility] OFFICE 16090 [facility]/CO FELICITAS KAREEM [address] BANK [facility]
--- OUTSIDE RECORDS SUMMARY | 2017-02-17 21:52 | External Medical Summary Rpt | CCD ---
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 Name Role Phone GURMEET IRF, GURMEET Unavailable [...] Unavailable SKYE BLACK JR, FULLER, Unavailable Unavailable [facility] Unavailable Unavailable HOSPITA, [facility] HOSPITA GILJOCELYN, VAMSI F, Unavailable Unavailable GILVAMSI BANKS F [facility], Unavailable Unavailable [facility] Unavailable Unavailable INC, [facility] Unavailable Unavailable HOSPITAL P, [facility] Unavailable Unavailable CARE, [place], [facility], [place] KAT LAR, KAT Unavailable Unavailable LAR KAT, EDGAR C, Unavailable Unavailable KAT EDGAR C [facility] [employer] Unavailable Unavailable [facility] [employer] [facility] [employer] Unavailable Unavailable [facility] [employer] MARTINA MACK Unavailable Unavailable MARTINA MACK Unavailable Unavailable [facility] Un[facility], [facility], Unavailable Unavailable [facility] Unavailable Unavailable CARE CL, [facility], Unavailable Unavailable [facility] Unavailable Unavailable INC, [facility] Unavailable Unavailable CARE, [facility] Unavailable Unavailable CARE[facility] Unavailable Unavailable [employer], Unavailable Unavailable PLLC, [facility], Unavailable Unavailable [facility] Unavailable Unavailable OF NOTH, [facility] NOT RENUSCH, RENUSCH Unavailable Unavailable SCIFRES, SCIFRES Unavailable Unavailable SCIFRES, SCIFRES Unavailable Unavailable THOMAS, THOMAS Unavailable Unavailable SMALARA TERRENCE, SMALARA Unavailable Unavailable [facility], [facility] Unavailable Unavailable [facility]Y SERV, [facility] SOWER GORDON, SOWER GORDON Unavailable Unavailable [facility] Unavailable Unavailable 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 Unavailable [facility]available [facility], [facility] Unavailable Unavailable [employer], Unavailable Unavailable INC, [employer] [employer] WILSHERE DERRICK, Unavailable Unavailable WILSHERE DERRICK [...] PHYSICIANS, WITHOUT PLLC HEMATURIA N390 URINARY 09-02-2016 [facility] TRACT [facility]YS[facility]ANS, INFECTION [facility] SITE NOT SPECIFIED R112 NAUSEA WITH 09-02-2016 [facility] VOMITING PHYSICIANS, UNSPECIFIED [facility] J209 ACUTE 08-23-2016 [facility] UNSPECIFIED INC K529 NONINFECTIV 08-17-2016 [facility] E PHYSICIANS, [facility] IT[facility] & COLITIS UNS R0602 SHORTNESS 08-17-2016 SU[facility]IE OF BREATH PHYSICIANS, [facility] [id number] OTHER LONG 08-17-2016 [facility] DRUG THERAPY J0390 ACUTE 06-14-2016 [facility] UNSPECIFIED E669 OBESITY 05-30-2016 [facility] OF UNSPECIFIED [employer] N926 IRREGULAR 05-30-2016 [facility] MENSTRUATIO [employer] N UNSPECIFIED A599 TRICHOMONIA 05-20-2016 [facility] UNSPECIFIED [facility] [place] [id number] ENCOUNTER 05-16-2016 [facility] MEDICAL LABORATORY SCIENTIST EXAM [employer] [employer] GENERAL RTN W/O ABNORMAL FIND Z124 ENCOUNTER 05-16-2016 [facility] OF OTHER [employer] SCREENING MALIG NEOPLASM CERVIX K029 DENTAL 03-08-2016 [facility] UNSPECIFIED HOSPITA K0889 OTHER 03-08-2016 [facility] SPECIFIED N EMERGENCY DISORDERS PHYS OF TEETH SUPPORT STRCT J020 STREPTOCOCC 01-18-2016 [facility] PHARYNGITIS SYSTEMS, INC B354 TINEA 04-23-2015 [facility] [employer] 4019 UNSPECIFIED 01-03-2015 [facility]ENTIAL [facility] [place]YPERT[place]SIO [place]PITA N 45945 UNSPECIFIED 01-03-2015 [facility] DENTAL COMM[facility] CARIES HOSPITA 5259 UNSPECIFIED 01-03-2015 [facility] DISORDER N EMERGENCY TEETH&SUPPO SERV RTING STRUCTURES 90654 ALTERED 12-14-2014 [facility] MENTAL [facility] STATUS OF [facility] 86991 GENERALIZED 11-17-2014 NEW ANXIET[facility] 03614 UNSPECIFIED 08-01-2014 NEW VIRAL [facility] INFECTION MED CTR IN CCE & UNS SITE 85807 DEHYDRATION 08-01-2014 NEW [facility] MED CTR 2768 HYPOPOTASSE 08-01-2014 [facility] 5589 OTH&UNSPEC 07-30-2014 [facility] NONINFECT[facility] HOLLOW 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 KNIFE ASSEMBLER GASTROENTER ST ITIS&COLITI S 5718 OTHER 07-30-2014 RAD[facility] CHRONIC ASSOCIATES NONALCOHOLI OF [facility] LIVER DISEASE 90854 NAUSEA WITH 07-30-2014 RADIOLOGY VOMITING ASSOCIATES OF [facility] 18299 DIARRHEA 07-30-2014 [facility] OF [facility] 04898 ABDOMINAL 07-30-2014 RADIOLOGY PAIN, ASSOCIATES UNSPECIFIED OF [facility] SITE V5869 LONG-TERM 07-30-2014 ST (CURRENT) [facility] USE OF MED CTR HOLLOW HANDLE KNIFE ASSEMBLER OTHER ST MEDICATIONS 7291 UNSPECIFIED 04-14-2014 NEW MYALGIA [facility] MYOSITIS PRACTICE V7109 OBSERVATION 03-13-2014 [facility] SUSPECTED CARE MENTAL CONDITION 4659 ACUTE URIS 02-28-2014 NEW OF [facility] UNSPECIFIED FAMILY SITE PRACTICE 7862 COUGH 02-28-2014 [facility] 9221 CONTUSION 01-12-2014 NEW OF CHEST [facility] WALL MED CTR 9598 INJURY 01-12-2014 NEW OTH&UNSPEC [facility] O[facility] SPEC [facility] SITES INCL MULTIPLE 7089 UNSPECIFIED 11-20-2013 NEW [facility]ARIA [facility] 29679 HIDRADENITI 07-30-2013 NEW S [facility] PRIMARY [facility] CL 4660 ACUTE 05-20-2013 NEW BRONCHITIS [facility] CL 462 ACUTE 06-01-2012 NEW PHARYNGITIS [facility] CL 3671 MYOPIA 12-20-2011 GURMEET IRF 3688 OTHER 12-19-2011 GURMEET IRF SPECIFIED VISUAL DISTURBANCE S 11996 INSOMNIA 12-01-2011 [facility] UNSPECIFIED CRY 03809 OTHER 12-01-2011 [facility] MALAISE AND CRY FATIGUE 62794 CHEST PAIN 12-01-2011 [facility] UNSPECIFIED CRY 4619 ACUTE 08-03-2011 NEW SINUSITIS, [facility] [place] [address] OBESITY, 01-22-2010 [facility] UNSPECIFIED [facility], INC 4779 ALLERGIC 01-22-2010 [facility] RHINITIS HEALTH CAUSE SYSTEMS, UNSPECIFIED INC 7821 RASH AND 01-22-2010 [facility] OTHER HEALTH NONSPECIFIC SYSTEMS, SKIN INC ERUPTION 0088 INTESTINAL 01-19-2010 NEW INFECTION [facility] DUE TO MED CTR OTHER ORGANISM NEC 3814 NONSUPPRATV 09-18-2009 NEW OTITIS [facility]IA NOT MEDICAL CTR SPEC RURAL ACUT/[facility] 48234 OVERWEIGHT 07-21-2009 [facility] 67149 UNSPECIFIED 07-21-2009 [facility] CONJUNCTIVI MEDICAL CTR TIS [facility] 18325 UNSPECIFIED 05-22-2009 NEW SITE OF [facility] ANKLE [facility] CTR SPRAIN AND STRAIN 52989 SPRAIN AND 05-22-2009 NEW STRAIN OF [facility] UNSPECIFIED MED CTR SITE OF FOOT E8859 FALL FROM 05-22-2009 NEW OTHER [facility] SLIPPING MED CTR TRIPPING OR STUMBLING 490 BRONCHITIS 02-26-2009 NEW NOT [facility] SPECIFIED MED CTR ACUTE OR CHRONIC 3829 UNSPECIFIED 02-12-2008 NEW OTITIS [facility] MEDIA [facility]ICAL CTR [facility] 46543 VOMITING 02-12-2008 NEW ALONE [facility] V202 ROUTINE 12-17-2007 NEW [facility] CHILD [facility] 7806 FEVER & OTH 06-25-2007 [facility] PHYSIOLOG[facility] V720 EXAMINATION 06-01-2007 DHS/CO [...] 11 -1 -1 .0 00 LL ti WY 10 7- 5- 00 01 ve OL 46 20 20 19 FA OL 60 17 17 52 NM 5 77 LY KEITH CC PH AR ER MA CY 25 MG TA B HY 16 08 09 [address] 72 -1 -1 .0 00 LL ti OC 90 7- 5- 00 01 ve HL 18 20 20 19 FA OR 31 17 17 52 NM OT 7 78 LY HI AZ PH ID AR E MA 25 CY MG TA B SE 65 08 09 30 30 00 CU Ac RT 86 -1 -1 .0 00 LL ti RA 20 7- 5- 00 01 ve LI 01 20 20 19 FA NE 30 17 17 52 NM 5 79 LY HC L PH 10 AR 0 MA MG CY TA BL ET SE 65 07 08 30 30 00 CU Ac RT 86 -1 -1 .0 00 LL ti RA 20 4- 1- 00 01 ve LI 01 20 20 19 FA NE 30 17 17 52 NM 5 79 LY HC L PH 10 AR 0 MA MG CY TA BL ET HY 16 07 08 30 [address] 72 -1 -1 .0 00 LL ti OC 90 4- 1- 00 01 ve HL 18 20 20 19 FA OR 31 17 17 52 NM OT 7 78 LY HI AZ PH ID AR E MA 25 CY MG TA B ME 55 07 08 30 30 00 CU Ac TO 11 -1 -1 .0 00 LL ti WY 10 4- 1- 00 01 ve OL 46 20 20 19 FA OL 60 17 17 52 NM 5 77 LY KEITH CC PH AR ER MA CY 25 MG TA B SE 65 05 06 30 30 00 CU Ac RT 86 -2 -1 .0 00 LL ti RA 20 4- 6- 00 01 ve LI 01 20 20 19 FA NE 30 17 17 52 NM 5 79 LY HC L PH 10 AR 0 MA MG CY TA BL ET HY 16 05 06 30 [address] 72 -2 -1 .0 00 LL ti OC 90 4- 6- 00 01 ve HL 18 20 20 19 FA OR 31 17 17 52 NM OT 7 78 LY HI AZ PH ID AR E MA 25 CY MG TA B ME 55 05 06 30 30 00 CU Ac TO 11 -2 -1 .0 00 LL ti WY 10 4- 6- 00 01 ve OL 46 20 20 19 FA OL 60 17 17 52 NM 5 77 LY KEITH CC PH AR [...] 04 05 6. 3 00 WA Ac WY 14 -2 -2 00 00 L- ti OF 39 8- 6- 0 07 MA ve LO 92 20 20 48 RT XA 70 17 17 50 CI 1 11 PH N AR HC MA L CY 25 0 #5 MG 91 TA B ME 68 04 05 30 30 00 CU Ac TO 00 -1 -1 .0 00 LL ti WY 10 3- 2- 00 01 ve OL 12 20 20 19 FA OL 10 17 17 52 NM 3 77 LY KEITH CC PH AR ER MA CY 25 MG TA B HY 16 04 05 30 [address] 72 -1 -1 .0 00 LL ti OC 90 3- 2- 00 01 ve HL 18 20 20 19 FA OR 31 17 17 52 NM OT 7 78 LY HI AZ PH ID AR E MA 25 CY MG TA B SE 65 04 05 30 30 00 CU Ac RT 86 -1 -1 .0 00 LL ti RA 20 3- 2- 00 01 ve LI 01 20 20 19 FA NE 30 17 17 52 NM 5 79 LY HC L PH 10 AR 0 MA MG CY TA BL ET SE 65 03 04 30 30 00 CU Ac RT 86 -1 -0 .0 00 LL ti RA 20 4- 7- 00 01 ve LI 01 20 20 16 FA NE 30 17 17 47 NM 5 91 LY HC L PH 10 AR 0 MA MG CY TA BL ET ME 68 03 04 30 30 00 CU Ac TO 00 -1 -0 .0 00 LL ti WY 10 4- 7- 00 01 ve OL 12 20 20 16 FA OL 10 17 17 47 NM 3 98 LY KEITH CC PH AR ER MA CY 25 MG TA B HY 00 03 04 30 [address] 17 -1 -0 .0 00 LL ti OC 22 4- 7- 00 01 ve HL 08 20 20 16 FA OR 38 17 17 47 NM OT 0 99 LY HI AZ PH ID AR E MA 25 CY MG TA B SE 65 02 03 30 30 00 CU Ac RT 86 -1 -1 .0 00 LL ti RA 20 5- 0- 00 01 ve LI 01 20 20 16 FA NE 30 17 17 47 NM 5 91 LY HC L PH 10 AR 0 MA MG CY TA BL ET ME 68 02 03 30 30 00 CU Ac TO 00 -1 -1 .0 00 LL ti WY 10 5- 0- 00 01 ve OL 12 20 20 16 FA OL 10 17 17 47 NM 3 98 LY KEITH CC PH AR ER MA CY 25 MG TA B HY 00 02 03 30 [address] 17 -1 -1 .0 00 LL ti OC 22 5- 0- 00 01 ve HL 08 20 20 16 FA OR 38 17 17 47 NM OT 0 99 LY HI AZ PH ID AR E MA 25 CY MG TA B ME 29 01 02 4. 1 00 CU Ac TR 30 -1 -1 00 00 LL ti ON 00 3- 0- 0 01 ve ID 22 20 20 17 FA AZ 70 17 17 83 NM OL 5 51 LY E 50 PH 0 AR MG MA CY TA BL ET SE 65 01 02 30 30 00 CU Ac RT 86 -1 -1 .0 00 LL ti RA 20 8- 0- 00 01 ve LI 01 20 20 16 FA NE 30 17 17 47 NM 5 91 LY HC L PH 10 AR 0 MA MG CY TA BL ET ME 68 01 02 30 30 00 CU Ac TO 00 -1 -1 .0 00 LL ti WY 10 8- 0- 00 01 ve OL 12 20 20 16 FA OL 10 17 17 47 NM 3 98 LY KEITH CC PH AR ER MA CY 25 MG TA B HY 00 01 02 30 [address] 17 -1 -1 .0 00 LL ti OC 22 8- 0- 00 01 ve HL 08 20 20 16 FA OR 38 17 17 47 NM OT 0 99 LY HI AZ PH ID AR E MA 25 CY MG TA B FL 00 01 02 2. 7 00 CU Ac UC 17 -0 -0 00 00 LL ti ON 25 9- 3- 0 01 ve AZ 41 20 20 17 FA OL 21 17 17 74 NM E 1 62 LY 15 0 PH MG AR MA TA CY BL ET BU 00 01 02 30 30 00 CU Ac SP 11 -0 -0 .0 00 LL ti IR 51 6- 3- 00 01 ve ON 69 20 20 17 FA E 20 17 17 71 NM HC 2 74 LY L 15 PH AR MG MA CY TA BL ET SE 65 12 01 30 30 00 CU Ac RT 86 -1 -0 .0 00 LL ti RA 20 4- 9- 00 01 ve LI 01 20 20 16 FA NE 30 16 17 47 NM 5 91 LY HC L PH 10 AR 0 MA MG CY TA BL ET ME 68 12 01 30 30 00 CU Ac TO 00 -1 -0 .0 00 LL ti WY 10 4- 9- 00 01 ve OL 12 20 20 16 FA OL 10 16 17 47 NM 3 98 LY KEITH CC PH AR ER MA CY 25 MG TA B HY 00 12 01 [address] 17 -1 -0 .0 00 LL ti OC 22 4- 9- 00 01 ve HL 08 20 20 16 FA OR 38 16 17 47 NM OT 0 99 LY HI AZ PH [...] 2. 5- IN 0. C 02 5 WY 57 09 09 0 15 6 NO [...] Procedure DOS Code Location Performer Comment OPHTH 10551 [facility] 7 XM&EVAL COMPRE NEW PT 1/> VST LENS V2784 NAYELY ADLER POLYCARBO 7 JOHNNY OR EQUAL ANY INDEX PER LENS SCRATCH V2760 [facility] RESISTANT 7 COATING PER LENS 1 VISN V2103 NAYELY ADLER PLANO 7 TO+/-4.00 D SPHER 0.12-2.00 D CYL EA FRAMES V2020 ADLER NAYELY PURCHASES 7 FITTING 56245 SCIFRES SCIFRES SPECTACLE 7 S XCPT APHAKIA MONOFOCAL CULTURE 37962 [facility] BACTERIAL 7 [facility] INC INC QUANTTATI VE COLONY COUNT URINE URINE 66859 [facility] TEST INC [place] [address] [facility] LIPASE 7 [facility] INC INC 67571 [facility] ABDOMINAL 7 [facility] REAL INC INC TIME W/IMAGE LIMITED BLOOD 13657 [facility] COUNT 7 [facility] COMPLETE INC INC AUTO&AUTO DIFRNTL WBC GONADOTRO 81533 [facility] PIN 7 [facility] CHORIONIC INC INC QUALITATI VE URNLS DIP 39108 [facility] STICK/TAB INC INC [place] [address] [facility] AMYLASE 7 [facility] INC INC COMPREHEN 81388 [facility] SIVE 7 [facility] METABOLIC INC INC PANEL URNLS DIP 35692 [facility] 7 [facility] STICK/TAB INC INC LET REAGENT AUTO MICROSCOP Y CULTURE 62112 [facility] BACTERIAL 7 [facility] INC INC QUANTTATI VE COLONY COUNT URINE URINE 93264 [facility] 7 [facility] TEST INC INC VISUAL COLOR CMPRSN METHS IAADIADOO 94055 [facility] 7 [facility] INFLUENZA INC INC IAADIADOO 49040 [facility] 7 [facility] HOSP STREPTOCO INC INC CCUS GROUP A ECG 25088 SUZIE RENUSCH ROUTINE 7 PHYSICIAN ECG S, PLLC W/LEAST 12 [place] [address] [facility] TROPONIN 7 [facility] QUANTITAT INC INC HEATHER COMPREHEN 57962 [facility] SIVE 7 [facility] METABOLIC INC INC PANEL RADIOLOGI 85717 [facility] C EXAM 7 [facility] CHEST 2 INC INC VIEWS FRONTAL&L ATERAL BLOOD 05968 [facility] COUNT 7 [facility] COMPLETE INC INC AUTO&AUTO DIFRNTL WBC GONADOTRO 14513 [facility] PIN 7 [facility]OS[facility] CHORIONIC INC INC QUALITATI VE ECG 69864 [facility] ROUTINE 7 [facility] ECG INC INC W/LEAST 12 LDS TRCG ONLY W/O I&R FIBRIN 97123 [facility] DGRADJ 7 [facility]OSP PRODUCTS INC INC D-DIMER QUAL/SEMI MARGARITA INJECTION J0561 [facility] 7 [facility] PENICILLI SADI AVITIA N G BENZATHIN E [id number] UNITS THERAPEUT 98386 [facility] IC 7 NILSON NILSON PROPHYLAC SADI AVITIA TIC/DX INJECTION SUBQ/IM GONADOTRO 70416 [facility] OF PIN 7 [place], LUTEINIZI INC. INC. NG HORMONE BLOOD 03032 [facility] COUNT 7 [place] [address] LAB[facility] OF [facility] OF THYROID 7 [place], STIMULATI INC. INC. NG HORMONE TSH COMPREHEN 37220 [facility] OF SIVE 7 [place], [place] [address] LAB[facility] OF [facility] OF ESTRADIOL 7 [place] INC. INC. GONADOTRO 59962 LAB[facility] OF LABONE OF PIN 7 [place] FOLLICLE INC. [place] [address] LAB[facility] OF [facility] OF SEX 7 [place] HORMONE INC[place] [address] LABONE OF LAB[facility] OF TESTOSTER 7 [place], ONE TOTAL INC. INC. URINE 75337 [employer] 7 POINT TEST FAMILY VISUAL CARE, IN COLOR CMPRSN METHS CYTP C/V 95093 LAB[facility] OF [facility] OF AUTO THIN 7 [place], LYR INC. INC. PREPJ SCR MNL RESCR PHYS IAADIADOO 40373 [facility] 6 [employer], CCUS INC GROUP A HEMOGLOBI 43680 [facility]ST N 6 DIAGNOSTI DIAGNOSTI GLYCOSYLA CS CS GREYSON A1C COMPREHEN 34509 [facility]ST SIVE 6 DIAGNOSTI DIAGNOSTI [place] [address] [facility]ST THYROID 6 DIAGNOSTI DIAGNOSTI STIMULATI CS CS NG HORMONE TSH RADIOLOGI 22404 RADIOLOGY BRANDSER C EXAM 5 MARTHA CHEST 2 ASSOCIATE VIEWS S [place] NOTH FRONTAL&[place] [address] NEW NEW INFUSION 5 [facility] THERAPY/P MED CTR MED CTR ROPHYLAXI S /DX 1ST TO 1 HR BLOOD 12063 NEW NEW COUNT 5 [facility] COMPLETE MED CTR MED CTR AUTO&[place] [address] NEW NEW LIPASE 5 [facility] [place] [address] NEW NEW INFUSION 5 [facility] HYDRATION MED CTR MED CTR EACH ADDITIONA L HOUR TOXIN/ANT 88191 NEW NEW ITOXIN 5 [facility] ASSAY [place] [address] NEW NEW AMYLASE 5 [facility] MED CTR COMPREHEN 81816 NEW NEW SIVE 5 [facility] METABOLIC MED CTR MED CTR PANEL COLLECTIO 58635 NEW NEW N VENOUS 5 [facility] BLOOD MED CTR MED CTR VENIPUNCT URE INJECTION J2405 NEW NEW 5 [facility] ONDANSETR MED CTR MED CTR ON HCL PER 1 MG UNCLASSIF J3490 NEW NEW IED DRUGS 5 [facility] [place] [address] RADIOLOGY DOERGER ABDOMEN & 5 KIR PELVIS ASSOCIATE W/CONTRAS [facility] MATERIAL IAADIADOO 27585 NEW SMALARA 4 [facility]ERRENCE [facility] PSYCHOTHE [address] W/PATIENT CARE CARE 60 MINUTES PSYCHOTHE 44482 [facility] [address] W/PATIENT CARE CARE 60 MINUTES IAADIADOO 66221 NEW PREMA 3 [facility] CRY INFLUENZA PRIMARY CARE CL FRAMES V2020 GURMEET GURMEET PURCHASES 2 IRF IRF FITTING 91406 GURMEET GURMEET SPECTACLE 2 IRF IRF S XCPT APHAKIA MONOFOCAL SPHERE V2100 GURMEET GURMEET SINGLE 2 IRF IRF VISION PLANO +/- 4.00 PER LENS DETERMINA 45115 GURMEET GURMEET TION 2 [place] [address] NEW NEW STREPTOCO 9 HORIZONS HORIZONS CCUS MED CTR MED CTR GROUP A IAADIADOO 02522 NEW NEW 9 [facility]IZ[facility]IZ[facility] INFLUENZA MED CTR MED CTR COLLECTIO 55658 NEW NEW N VENOUS 9 [facility]IZONS HORIZONS BLOOD MED CTR MED CTR VENIPUNCT URE IAADIADOO 65605 YOLANDA HILL 8 HORIZONS [place] Walls STREPTOCO MEDICAL CCUS CTR [facility] IAADIADOO 91317 Josefina UNGER INFLUENZA MEDICAL CTR [facility] Encounters Encounter Start End Date Code Location Performer Type Date HOSPITAL TRENT - Pam 7 [facility] OUTPATIEN INC T EMERGENCY 06769 SUZIE BLACK, 7 7 PHYSICIAN JR [facility] HIGH/URGE NT SEVERITY EMERGENCY 56837 [facility] 7 7 [facility] DEPARTMEN INC T VISIT LOW/MODER SEVERITY EMERGENCY 19724 SUZIE YUN, 7 7 PHYSICIAN III [facility]IT HIGH/URGE NT SEVERITY EMERGENCY 48265 TRENT 7 7 [facility] DEPARTMEN INC T VISIT LOW/MODER SEVERITY HOSPITAL TRENT - 7 7 [facility] OUTPATIEN INC T HOSPITAL TRENT - 7 7 [facility]PATIEN INC T [facility] 41024 [facility] T VISIT 5 INC MINUTES HOSPITAL TRENT - 7 7 [facility] OUTPATIEN INC EMERGENCY 25717 SUZIE [facility] DEPT 7 7 PHYSICIAN VISIT S, PLLC HIGH SEVERITY& THREAT FUNCJ EMERGENCY 43357 TRENT 7 7 MEM HOSP DEPARTMEN INC T VISIT MODERATE SEVERITY EMERGENCY 49145 [facility] 7 7 EMERGENCY DEPARTMEN T VISIT PHYSICIAN HIGH/URGE S NT SEVERITY EMERGENCY 07282 ST. 7 7 [facility] T VISIT MODERATE SEVERITY [facility] - 7 7 [facility] 83225 SUDHEER ADLER OUTPATIEN 7 7 POINT T VISIT FAMILY 10 CARE, IN MINUTES PERIODIC 54940 SUDHEER ADLER PREVENTIV 7 7 POINT E MED EST FAMILY PATIENT CARE, IN 18-39 YRS HOSPITAL [facility] - 6 6 N OUTPATIEN COMMUNTIY T HOSPITA EMERGENCY 66093 [facility] 6 [facility] VISIT HOSPITA LOW/MODER SEVERITY EMERGENCY 34832 [facility] 6 6 ORESTES SCO DEPARTMEN EMERGENCY T VISIT PHYS MODERATE SEVERITY OFFICE 74118 [facility] OUTPATIEN 6 6 HEALTH T VISIT SYSTEMS, 25 INC MINUTES OFFICE 83520 [facility] SHYANN OUTPATIEN 5 5 HEALTH DERRICK T NEW 30 SYSTEMS, MINUTES [facility] H[facility]PITAL [facility] - 5 5 N OUTPATIEN COMMUNTIY T HOSPITA EMERGENCY 95154 [facility] 5 5 N DEPARTMEN COMMUNTIY T VISIT HOSPITA MODERATE SEVERITY OFFICE 65548 YOLANDA RENAEEN 5 5 [facility] LAR T VISIT FAMILY 15 PRACTICE MINUTES OFFICE 02423 YOLANDA RENAEEN 5 5 [facility] LAR T VISIT FAMILY 10 PRACTICE MINUTES HOSPITAL NEW - 5 5 [facility] OUTPATIEN MED CTR T EMERGENCY 66781 NEW 5 5 [facility] DEPARTMEN MED CTR T VISIT HIGH/URGE NT SEVERITY EMERGENCY 23708 [facility] DEPT 5 5 EMERGENCY VISIT HIGH PHYSICIAN SEVERITY& S THREAT [facility] ST - 5 5 [facility] OUTPATIEN MED CTR T HOLLOW HANDLE KNIFE ASSEMBLER ST EMERGENCY [address] ST 5 5 [facility] DEPARTMEN MED CTR T VISIT HOLLOW HANDLE KNIFE ASSEMBLER ST MODERATE SEVERITY OFFICE 19752 YOLANDA RENAEEN 4 4 [facility]IZ[facility] TERRENCE T VISIT FAMILY 10 PRACTICE MINUTES OFFICE 59497 YOLANDA NEELYPATIEN 4 4 [facility]IZONS LAR T VISIT FAMILY 15 PRACTICE MINUTES EMERGENCY 09372 NEW 4 4 [facility] DEPARTMEN MED CTR T VISIT MODERATE SEVERITY HOSPITAL NEW - 4 4 [facility] OUTPATIEN MED CTR T EMERGENCY 04561 NEW 4 4 [facility] T VISIT LOW/MODER SEVERITY HOSPITAL NEW - 4 4 [facility] T OFFICE 63750 NEW [place] OUTPATIEN 4 4 [facility] TERRENCE T VISIT PRIMARY 15 CARE CL MINUTES OFFICE 20809 NEW KAT OUTPATIEN 4 4 [facility] LAR T VISIT PRIMARY 15 CARE CL MINUTES OFFICE 97263 NEW SMALARA OUTPATIEN 3 3 [facility] TERRENCE T VISIT PRIMARY 15 CARE CL MINUTES OFFICE 31131 NEW PREMA OUTPATIEN 3 3 [facility] CRY T VISIT PRIMARY 15 CARE CL MINUTES OFFICE 68678 NEW KAT OUTPATIEN 2 2 [facility] LAR T VISIT PRIMARY 15 CARE CL MINUTES OFFICE 49458 GURMEET GURMEET OUTPATIEN 2 2 IRF IRF T NEW 45 MINUTES OFFICE 04392 PREMA PREMA OUTPATIEN 2 2 CRY CRY T VISIT 25 MINUTES OFFICE 16760 NEW PREMA OUTPATIEN 2 2 [facility] CRY T VISIT PRIMARY 15 CARE CL MINUTES OFFICE 12558 PALLAVI PALLAVI OUTPATIEN 2 2 MD MARTHA GARCIA MARTHA T VISIT 15 MINUTES OFFICE 28686 PREMA PREMA OUTPATIEN 1 1 CRY CRY T VISIT 15 MINUTES OFFICE 30886 [facility] OUTPATIEN 0 0 [facility] T NEW 45 SYSTEMS, MINUTES [facility] NEW - 0 0 [facility] T EMERGENCY 73038 ACUTE KAT 0 0 CARE LAR DEPARTMEN BILLING T VISIT [facility] MODERATE SEVERITY EMERGENCY 35246 NEW 0 0 [facility] T VISIT LIMITED/M INOR PROB OFFICE 99714 NEW KAREEM MORRIS 0 0 [facility] VAMSI F T VISIT [facility] OFFICE 06792 KAREEM UNGER 0 0 [facility] [place] [facility] NEW - 0 0 [facility] NEW - 9 9 [facility] T EMERGENCY 78654 NEW 9 9 [facility] DE[facility] T VISIT LOW/MODER SEVERITY OFFICE 50180 YOLANDA SERNA 8 8 [place] PERIODIC 94772 YOLANDA HILL PREVENTIV 8 8 [place] [facility] MEDICAL PATIENT [facility] OFFICE 81745 KAREEM UNGER 8 8 [facility] [facility] OFFICE 15497 [facility] FELICIT[facility] KAREEM [address] BANK ACCT Y SCHOOL
--- OUTSIDE RECORDS SUMMARY | 2017-02-17 21:55 | External Medical Summary Rpt | CCD ---
Demographics Preferred Language Indonesian Marital Status Unknown Faith Affiliation Unknown Race Unknown Ethnic Group Unknown Author Author , FLORENCIA DON Address Unknown Phone Immunization Unable to retrieve immunization data due to connection failure with Immunization Registry. Please try again later.
--- OUTSIDE RECORDS SUMMARY | 2017-02-17 21:55 | External Medical Summary Rpt | CCD ---
Author Author , FLORENCIA Sánchez FLORENCIA Address Unknown Phone [email or web address] Care Team Providers Care Shorthand Reporter Name Role Phone G[facility]ET IRF, GURMEET Unavailable Unavailable IRF [facility], GURMEET Unavailable Unavailable IRF ADLER, ADLER Unavailable Unavailable ADLER, ADLER Unavailable Unavailable ADLER, ADLER Unavailable Unavailable [facility], Unavailable Unavailable [facility] PALLAVI GARCIA MARTHA, Unavailable Unavailable PALLAVI GARCIA MARTHA BESAMELIA BESAMELIA Unavailable Unavailable BRANDSER MARTHA, Unavailable Unavailable BRANDSER MARTHA PREMA CRY, Unavailable Unavailable PREMA CRY PREMA CRY, Unavailable Unavailable PREMA CRY GEORGIANA JULIAN, Unavailable Unavailable [place] JULIAN DOBAY, III, DOBAY, Unavailable Unavailable III DOERGER KIR, DOERGER Unavailable Unavailable SKYE BLACK JR, FULLER, Unavailable Unavailable JR [facility] Un[facility] GILJOCELYN, VAMSI F, Unavailable Unavailable GILVAMSI BANKS F [facility], Unavailable Unavailable [facility] Unavailable Unavailable INC, [facility] Unavailable Unavailable [facility]PITAL P, [facility] Unavailable Un[facility] CARE, [place], [facility] [place] KAT LAR, KAT Unavailable Unavailable LAR KAT, EDGAR C, Unavailable Unavailable KAT EDGAR C [facility] Unavailable Unavailable [facility] Unavailable Unavailable [facility] MARTINA MACK Unavailable Unavailable MARTINA MACK Unavailable Unavailable [facility] Un[facility] Un[facility]ACT[facility], [facility], Unavailable Unavailable [facility] Unavailable Unavailable CARE CL, [facility], Unavailable Unavailable [facility] Unavailable Unavailable INC, [facility] Unavailable Unavailable CARE, [facility] Unavailable Unavailable CARE, [facility] CARE [facility] Unavailable [facility]available [employer], Unavailable Unavailable PLLC, [facility], Unavailable Unavailable [facility] Unavailable Unavailable OF NOTH, [facility] NOT RENUSCH, RENUSCH Unavailable Unavailable SCIFRES, SCIFRES Unavailable Unavailable SCIFRES, SCIFRES Unavailable Unavailable THOMAS, THOMAS Unavailable Unavailable SMALARA TERRENCE, SMALARA Unavailable Unavailable [facility] Unavailable Unavailable [facility], [facility] SOWER GORDON, SOWER GORDON Unavailable Unavailable [facility] Unavailable Unavailable SET UP OPERATOR ST[facility] SET UP OPER[facility] Unavailable Unavailable [facility], [facility] Unavailable Unavailable [employer] [facility], Unavailable Unavailable INC, [facility] Unavailable Unavailable WILSHERE DERRICK, Unavailable Unavailable [facility] Purpose Continuity of Care Document - 06-01-2007 through 2016 Problems Code Diagnosis DOS Provider Status H5203 HYPERMETROP 10-27-2016 SCIFRES IA BILATERAL H5213 MYOPIA 10-27-2016 ADLER BILATERAL Z0100 ENCOUNTER 10-27-2016 MARTINA EXAM EYES & VISION W/O ABNORMAL FIND R1010 UPPER 09-16-2016 [facility] PAIN PLL[facility] UNSPECIFIED R1013 EPIGASTRIC 09-16-2016 [facility]IN [facility] I10 ESSENTIAL 09-02-2016 [facility] HYPERTENSIO INC N N3000 ACUTE 09-02-2016 [facility] CYSTITIS [facility], WITHOUT PLLC HEMATURIA N390 URINARY 09-02-2016 [facility] TRACT [facility], INFECTION [facility] SITE NOT SPECIFIED R112 NAUSEA WITH 09-02-2016 [facility] VOMITING [facility], UNSPECIFIED [facility] J209 ACUTE 08-23-2016 [facility] UNSPECIFIED INC K529 NONINFECTIV 08-17-2016 [facility] E PHYSICIANS, GASTROENTER [facility] ITIS & COLITIS UNS R0602 SHORTNESS 08-17-2016 [facility] OF BREATH PHYSICIANS, [facility] H14738 OTHER LONG 08-17-2016 [facility] P DRUG THERAPY J0390 ACUTE 06-14-2016 [facility]ON[facility] AVITIA UNSPECIFIED E669 OBESITY 05-30-2016 [facility] UNSPECIFIED [facility] N926 IRREGULAR 05-30-2016 [facility] MENSTRUATIO [facility] N UNSPECIFIED A599 TRICHOMONIA 05-20-2016 [facility] UNSPECIFIED [facility]ARE, IN [id number] ENCOUNTER 05-16-2016 [facility] STRIKE OUT MACHINE OPERATOR EXAM [facility] GENERAL RTN W/O ABNORMAL FIND Z124 ENCOUNTER 05-16-2016 [facility] OTHER [facility] [employer] SCREENING MALIG NEOPLASM CERVIX K029 DENTAL 03-08-2016 [facility] UNSPECIFIED HOSPITA K0889 OTHER 03-08-2016 [facility] SPECIFIED N EMERGENCY DISORDERS PHYS OF TEETH SUPPORT STRCT J020 STREPTOCOCC 01-18-2016 [facility] PHARYNGITIS SYSTEM[facility], INC B354 TINEA 04-23-2015 [facility] [employer] 4019 UNSPECIFIED 01-03-2015 [facility] [place]SIO [place]OSPITA N 79994 UNSPECIFIED 01-03-2015 [facility]AL [facility] 5259 UNSPECIFIED 01-03-2015 [facility] DISORDER N EMERGENCY TEETH&SUPPO SERV RTING STRUCTURES 94161 ALTERED 12-14-2014 [facility] STATUS OF [facility] 34318 GENERALIZED 11-17-2014 NEW [facility]XI[facility] 79579 UNSPECIFIED 08-01-2014 NEW VIRAL [facility] INFECTION [facility] IN CCE & UNS SITE 33291 DEHYDRATION 08-01-2014 [facility] 2768 HYPOPOTASSE 08-01-2014 NEW SAAD [facility] 5589 OTH&UNSPEC 07-30-2014 ST NONINFECTIO [facility] SET UP OPERATOR GASTROENTER ST ITIS&COLITI S 5718 OTHER 07-30-2014 [facility] CHRONIC ASSOC[facility] NONALCOHOLI OF [facility] LIVER DISEASE 15400 NAUSEA WITH 07-30-2014 RAD[facility] VOMITING ASSOCIATES OF [facility] 21793 DIARRHEA 07-30-2014 [facility] OF [facility] 11882 ABDOMINAL 07-30-2014 RADIOLOGY PAIN, ASSOCIATES UNSPECIFIED OF [facility] SITE V5869 LONG-TERM 07-30-2014 ST (CURRENT) [facility] USE OF MED CTR SET UP OPERATOR OTHER ST MEDICATIONS 7291 UNSPECIFIED 04-14-2014 NEW MYALGIA [facility] MY[facility]ITIS PRACT[facility] V7109 OBSERVATION 03-13-2014 [facility] SUSPECTED CARE MENTAL CONDITION 4659 ACUTE URIS 02-28-2014 NEW OF [facility] UNSPECIFIED FAMILY SITE PRACTICE 7862 COUGH 02-28-2014 NEW [facility] 9221 CONTUSION 01-12-2014 NEW OF CHEST [facility] WALL [facility] 9598 INJURY 01-12-2014 NEW OTH&UNSPEC [facility] O[facility] SPEC [facility] SITES INCL MULTIPLE 7089 UNSPECIFIED 11-20-2013 NEW [facility]ICARIA [facility] 51605 HIDRADENITI 07-30-2013 NEW S [facility] CL 4660 ACUTE 05-20-2013 NEW BRONCHITIS [facility] 462 ACUTE 06-01-2012 NEW PHARYNGITIS [facility] 3671 MYOPIA 12-20-2011 [facility] 3688 OTHER 12-19-2011 [facility] SPECIFIED VISUAL DISTURBANCE S 12223 INSOMNIA 12-01-2011 PREMA UNSPECIFIED CRY 43734 OTHER 12-01-2011 PREMA MALAISE AND CRY FATIGUE 93477 CHEST PAIN 12-01-2011 PREMA UNSPECIFIED CRY 4619 ACUTE 08-03-2011 NEW SINUSITIS, [facility] U[place]PECIFIED [place]ARE [place] 95790 OBESITY, 01-22-2010 [facility] UNSPECIFIED [facility] INC 4779 ALLERGIC 01-22-2010 [facility] RHINITIS HEALTH CAUSE SYSTEMS, UNSPECIFIED INC 7821 RASH AND 01-22-2010 [facility] OTHER HEALTH NONSPECIFIC SYSTEMS, SKIN INC ERUPTION 0088 INTESTINAL 01-19-2010 NEW INFECTION [facility] DUE TO MED CTR OTHER ORGANISM NEC 3814 NONSUPPRATV 09-18-2009 NEW OTITIS [facility] MEDIA NOT MEDICAL CTR SPEC RURAL ACUT/[facility] 36978 OVERWEIGHT 07-21-2009 [facility] 67366 UNSPECIFIED 07-21-2009 NEW [facility] CONJUNCTIVI MEDICAL CTR TIS [facility] 25464 UNSPECIFIED 05-22-2009 NEW SITE OF [facility] ANKLE MED CTR SPRAIN AND STRAIN 32342 SPRAIN AND 05-22-2009 NEW STRAIN OF [facility] UNSPECIFIED MED CTR SITE OF FOOT E8859 FALL FROM 05-22-2009 NEW OTHER [facility] SLIPPING MED CTR TRIPPING OR STUMBLING 490 BRONCHITIS 02-26-2009 NEW NOT [facility] SPECIFIED MED CTR ACUTE OR CHRONIC 3829 UNSPECIFIED 02-12-2008 NEW OTITIS [facility] MEDIA [facility] 68437 VOMITING 02-12-2008 NEW ALONE [facility] V202 ROUTINE 12-17-2007 NEW INFANT OR [facility] CHILD [facility]ICAL CTR [facility] 7806 FEVER & OTH 06-25-2007 [facility]SI[facility] V720 EXAMINATION 06-01-2007 [facility] ACCT Medications Na ND Rx Da Fi Fi Am Da Di Ph RX Ph St me C No te ll ll ou ys ag ar # ys at rm s nt no ma ic us Or Da si cy ia de te s n re d ME 55 08 09 30 30 00 CU Ac TO 11 -1 -1 .0 00 LL ti AR 10 7- 5- 00 01 ve OL 46 20 20 19 FA OL 60 17 17 52 WV 5 77 LY KEITH CC PH AR ER MA CY 25 MG TA B HY 16 08 09 30 [address] 72 -1 -1 .0 00 LL ti OC 90 7- 5- 00 01 ve HL 18 20 20 19 FA OR 31 17 17 52 WV OT 7 78 LY HI AZ PH ID AR E MA 25 CY MG TA B SE 65 08 09 30 30 00 CU Ac RT 86 -1 -1 .0 00 LL ti RA 20 7- 5- 00 01 ve LI 01 20 20 19 FA NE 30 17 17 52 WV 5 79 LY HC L PH 10 AR 0 MA MG CY TA BL ET ME 55 07 08 30 30 00 CU Ac TO 11 -1 -1 .0 00 LL ti AR 10 4- 1- 00 01 ve OL 46 20 20 19 FA OL 60 17 17 52 WV 5 77 LY KEITH CC PH AR ER MA CY 25 MG TA B HY 16 07 08 30 [address] 72 -1 -1 .0 00 LL ti OC 90 4- 1- 00 01 ve HL 18 20 20 19 FA OR 31 17 17 52 WV OT 7 78 LY HI AZ PH ID AR E MA 25 CY MG TA B SE 65 07 08 30 30 00 CU Ac RT 86 -1 -1 .0 00 LL ti RA 20 4- 1- 00 01 ve LI 01 20 20 19 FA NE 30 17 17 52 WV 5 79 LY HC L PH 10 AR 0 MA MG CY TA BL ET ME 55 05 06 30 30 00 CU Ac TO 11 -2 -1 .0 00 LL ti AR 10 4- 6- 00 01 ve OL 46 20 20 19 FA OL 60 17 17 52 WV 5 77 LY KEITH CC PH AR ER MA CY 25 MG TA B HY 16 05 06 30 [address] 72 -2 -1 .0 00 LL ti OC 90 4- 6- 00 01 ve HL 18 20 20 19 FA OR 31 17 17 52 WV OT 7 78 LY HI AZ PH ID AR E MA 25 CY MG TA B SE 65 05 06 30 30 00 CU Ac RT 86 -2 -1 .0 00 LL ti RA 20 4- 6- 00 01 ve LI 01 20 20 19 FA NE 30 17 17 52 WV 5 79 LY HC L PH 10 AR 0 MA MG CY TA BL ET ON 57 05 06 20 5 00 WA Ac DA 23 -1 -0 .0 00 L- ti NS 70 2- 9- 00 07 MA ve ET 07 20 20 48 RT RO 71 17 17 75 N 0 94 PH OD AR T MA 4 CY MG #5 TA 91 BL ET PA 68 05 06 30 30 00 WA Ac NT 64 -1 -0 .0 00 L- ti OP 50 2- 9- 00 07 MA ve RA 49 20 20 48 RT ZO 25 17 17 75 LE 4 96 PH AR SO MA D CY DR #5 40 91 MG TA B CI 00 04 05 6. 3 00 WA Ac AR 14 -2 -2 00 00 L- ti OF 39 8- 6- 0 07 MA ve LO 92 20 20 48 RT XA 70 17 17 50 CI 1 11 PH N AR HC MA L CY 25 0 #5 MG 91 TA B ON 57 04 05 7. 3 00 WA Ac DA 23 -2 -2 00 00 L- ti NS 70 8- 6- 0 07 MA ve ET 07 20 20 48 RT RO 71 17 17 50 N 0 12 PH OD AR T MA 4 CY MG #5 TA 91 BL ET ME 68 04 05 30 30 00 CU Ac TO 00 -1 -1 .0 00 LL ti AR 10 3- 2- 00 01 ve OL 12 20 20 19 FA OL 10 17 17 52 WV 3 77 LY KEITH CC PH AR ER MA CY 25 MG TA B HY 16 04 05 30 [address] 72 -1 -1 .0 00 LL ti OC 90 3- 2- 00 01 ve HL 18 20 20 19 FA OR 31 17 17 52 WV OT 7 78 LY HI AZ PH ID AR E MA 25 CY MG TA B SE 65 04 05 30 30 00 CU Ac RT 86 -1 -1 .0 00 LL ti RA 20 3- 2- 00 01 ve LI 01 20 20 19 FA NE 30 17 17 52 WV 5 79 LY HC L PH 10 AR 0 MA MG CY TA BL ET SE 65 03 04 30 30 00 CU Ac RT 86 -1 -0 .0 00 LL ti RA 20 4- 7- 00 01 ve LI 01 20 20 16 FA NE 30 17 17 47 WV 5 91 LY HC L PH 10 AR 0 MA MG CY TA BL ET ME 68 03 04 30 30 00 CU Ac TO 00 -1 -0 .0 00 LL ti AR 10 4- 7- 00 01 ve OL 12 20 20 16 FA OL 10 17 17 47 WV 3 98 LY KEITH CC PH AR ER MA CY 25 MG TA B HY 00 03 04 30 [address] 17 -1 -0 .0 00 LL ti OC 22 4- 7- 00 01 ve HL 08 20 20 16 FA OR 38 17 17 47 WV OT 0 99 LY HI AZ PH ID AR E MA 25 CY MG TA B SE 65 02 03 30 30 00 CU Ac RT 86 -1 -1 .0 00 LL ti RA 20 5- 0- 00 01 ve LI 01 20 20 16 FA NE 30 17 17 47 WV 5 91 LY HC L PH 10 AR 0 MA MG CY TA BL ET ME 68 02 03 30 30 00 CU Ac TO 00 -1 -1 .0 00 LL ti AR 10 5- 0- 00 01 ve OL 12 20 20 16 FA OL 10 17 17 47 WV 3 98 LY KEITH CC PH AR ER MA CY 25 MG TA B HY 00 02 03 30 [address] 17 -1 -1 .0 00 LL ti OC 22 5- 0- 00 01 ve HL 08 20 20 16 FA OR 38 17 17 47 WV OT 0 99 LY HI AZ PH ID AR E MA 25 CY MG TA B ME 29 01 02 4. 1 00 CU Ac TR 30 -1 -1 00 00 LL ti ON 00 3- 0- 0 01 ve ID 22 20 20 17 FA AZ 70 17 17 83 WV OL 5 51 LY E 50 PH 0 AR MG MA CY TA BL ET SE 65 01 02 30 30 00 CU Ac RT 86 -1 -1 .0 00 LL ti RA 20 8- 0- 00 01 ve LI 01 20 20 16 FA NE 30 17 17 47 WV 5 91 LY HC L PH 10 AR 0 MA MG CY TA BL ET ME 68 01 02 30 30 00 CU Ac TO 00 -1 -1 .0 00 LL ti AR 10 8- 0- 00 01 ve OL 12 20 20 16 FA OL 10 17 17 47 WV 3 98 LY KEITH CC PH AR ER MA CY 25 MG TA B HY 00 01 02 30 [address] 17 -1 -1 .0 00 LL ti OC 22 8- 0- 00 01 ve HL 08 20 20 16 FA OR 38 17 17 47 WV OT 0 99 LY HI AZ PH ID AR E MA 25 CY MG TA B BU 00 01 02 30 30 00 CU Ac SP 11 -0 -0 .0 00 LL ti IR 51 6- 3- 00 01 ve ON 69 20 20 17 FA E 20 17 17 71 WV HC 2 74 LY L 15 PH AR MG MA CY TA BL ET FL 00 01 02 2. 7 00 CU Ac UC 17 -0 -0 00 00 LL ti ON 25 9- 3- 0 01 ve AZ 41 20 20 17 FA OL 21 17 17 74 WV E 1 62 LY 15 0 PH MG AR MA TA CY BL ET SE 65 12 01 30 30 00 CU Ac RT 86 -1 -0 .0 00 LL ti RA 20 4- 9- 00 01 ve LI 01 20 20 16 FA NE 30 16 17 47 WV 5 91 LY HC L PH 10 AR 0 MA MG CY TA BL ET ME 68 12 01 30 30 00 CU Ac TO 00 -1 -0 .0 00 LL ti AR 10 4- 9- 00 01 ve OL 12 20 20 16 FA OL 10 16 17 47 WV 3 98 LY KEITH CC PH AR ER MA CY 25 MG TA B HY 00 12 01 [address] 17 -1 -0 .0 00 LL ti OC 22 4- 9- 00 01 ve HL 08 20 20 16 FA OR 38 16 17 47 WV OT 0 99 LY HI AZ PH [...] 2. 5- IN 0. C 02 5 AR 57 09 09 0 15 6 NO [...] CY 12 .5 IN C MG CP AZ 00 03 03 0 6. 5 NO 76 WILBERT Ac IT 09 - -1 00 RT 91 HN ti HR 37 6- 6- 0 H 26 SO ve OM 14 20 20 PA N YC 61 10 10 RK LA IN 8 RR PH Y 25 AR C 0 MA MG CY TA IN BL C ET 00 03 03 0 30 30 NO 76 WILBERT Ac 09 -1 -1 .0 RT 91 HN ti 51 6- 6- 00 H 28 SO ve 29 20 20 PA N 00 10 10 RK LA 6 RR PH Y AR C MA CY IN C 00 03 03 0 3. 7 NO 76 WILBERT Ac GA 06 -1 -1 00 RT 91 HN ti MO 54 6- 6- 0 H 31 SO ve X 01 20 20 PA N 0. 30 10 10 RK LA 5% 3 RR PH Y EY AR C E MA DR CY OP S IN C LO 37 01 01 00 30 30 BA 24 BA Ac RA 20 -1 -3 .0 KE 32 UM ti TA 50 3- 0- 00 RS 50 AN ve DI 34 20 20 N NE 66 09 09 PH MD 5 AR 10 MA ER CY IC MG C TA BL ET AZ 00 10 10 00 6. 5 NO 70 CU Ac IT 09 -0 -2 00 RT 03 LB ti HR 37 7- 3- 0 H 28 ER ve OM 14 20 20 PA TS YC 61 08 08 RK ON IN 8 PH AD 25 AR AM 0 M D MG IN C TA BL ET 54 10 10 00 12 6 NO 70 CU Ac 83 -0 -2 0. RT 03 LB ti 80 7- 3- 00 H 30 ER ve 54 20 20 0 PA TS 48 08 08 RK ON 0 PH AD AR AM M D IN C 00 02 03 00 12 4 NO 67 No Ac 52 -1 -2 0. RT 14 t ti 56 8- 6- 00 H 36 Av ve 75 20 20 0 PA ai 21 08 08 RK la 6 bl PH e AR M IN C 49 02 03 00 20 10 NO 67 No Ac 88 -1 -2 0. RT 14 t ti 40 8- 6- 00 H 37 Av ve 20 20 20 0 PA ai 17 08 08 RK la 0 bl PH e AR M IN C Procedures Procedure DOS Code Location Performer Comment FRAMES V2020 NAYELY ADLER PURCHASES 7 1 VISN V2103 NAYELY ADLER PLANO 7 TO+/-4.00 D SPHER 0.12-2.00 D CYL EA FITTING 45398 SCIFRES SCIFRES SPECTACLE 7 S XCPT APHAKIA MONOFOCAL OPHTH 23295 [facility] 7 XM&EVAL COMPRE NEW PT 1/> VST SCRATCH V2760 NAYELY ADLER RESISTANT 7 COATING PER LENS LENS V2784 NAYELY ADLER POLYCARBO 7 JOHNNY OR EQUAL ANY INDEX PER LENS URNLS DIP 28799 [facility] STICK/TAB INC INC LET REAGENT AUTO MICROSCOP Y GONADOTRO 36386 [facility] PIN 7 [facility] CHORIONIC INC INC QUALITATI VE BLOOD 03111 [facility] COUNT 7 [facility] COMPLETE INC INC AUTO&[place] [address] [facility] ABDOMINAL 7 [facility] REAL INC INC TIME W/IMAGE LIMITED COMPREHEN 56541 [facility] SIVE 7 [facility] [place] [address] [facility] AMYLASE 7 [place] [address] [facility] LIPASE 7 [facility] INC INC URINE 86780 [facility] TEST INC INC VISUAL COLOR CMPRSN METHS CULTURE 37504 [facility] BACTERIAL 7 [facility] INC INC QUANTTATI VE COLONY COUNT URINE URINE 78290 [facility] 7 [facility] TEST INC INC VISUAL COLOR CMPRSN METHS CULTURE 49468 [facility] BACTERIAL 7 [facility] INC INC QUANTTATI VE COLONY COUNT URINE URNLS DIP 08081 [facility] 7 [facility] STICK/TAB INC INC LET REAGENT AUTO MICROSCOP Y IAADIADOO 60150 [facility] 7 [facility] INFLUENZA INC INC IAADIADOO 14438 [facility] 7 [facility] STREPTOC[place] [address] [facility] TROPONIN 7 [facility] QUANTITAT INC INC HEATHER GONADOTRO 64989 [facility] PIN 7 [facility] CHORIONIC INC INC QUALITATI VE BLOOD 65497 [facility] COUNT 7 [facility] COMPLETE INC INC AUTO&AUTO DIFRNTL WBC RADIOLOGI 07673 [facility] C EXAM 7 [facility] CHEST 2 INC INC VIEWS FRONTAL&L ATERAL ECG 60335 TRENT NI ROUTINE 7 [facility] W/LEAST P 12 LDS I&R ONLY COMPREHEN 01055 [facility] SIVE 7 [facility] METABOLIC INC INC PANEL FIBRIN 29632 [facility] DGRADJ 7 [facility] PRODUCTS INC INC D-DIMER QUAL/SEMI MARGARITA ECG 42258 [facility] ROUTINE 7 [facility] ECG INC INC W/LEAST 12 LDS TRCG ONLY W/O I&R THERAPEUT 26250 [facility] 7 [place] PROPHYLAC SADI AVITIA TIC/DX INJECTION SUBQ/IM INJECTION J0561 [facility] 7 [place] PENICILLI SADI AVITIA N G BENZATHIN E 529697 UNITS BLOOD 76424 [facility] COUNT 7 [place], [place], [place] [address] LAB[facility] OF [facility] OF TESTOSTER 7 [place], ONE TOTAL INC. INC. GONADOTRO 31497 [facility] OF PIN 7 [place], FOLLICLE INC. [place] [address] LAB[facility] OF [facility] OF ESTRADIOL [address] [place] [address], INC. INC. COMPREHEN 75050 [facility] SIVE 7 [place], [place] [address] LAB[facility] OF [facility] OF THYROID 7 [place], STIMULATI INC. INC. NG HORMONE TSH GONADOTRO 82666 LAB[facility] OF [facility] OF PIN 7 [place], LUTEINIZI [place] [address] LABONE OF [facility] OF SEX 7 [place], HORMONE INC. INC. BINDING GLOBULIN CYTP C/V 15167 LAB[facility] OF [facility] OF AUTO THIN 7 [place], LYR INC. INC. PREPJ SCR MNL RESCR PHYS URINE 87276 Weight Wins 7 POINT TEST FAMILY VISUAL CARE, IN COLOR CMPRSN METHS IAADIADOO 57829 [facility] THOMAS 6 [employer], [place] [address] [facility] THYROID 6 DIAGNOSTI DIAGNOSTI STIMULATI CS CS NG HORMONE TSH COMPREHEN 98662 [facility] SIVE 6 DIAGNOSTI DIAGNOSTI METABOLIC CS CS PANEL HEMOGLOBI 89231 [facility] N 6 DIAGNOSTI DIAGNOSTI GLYCOSYLA CS CS GREYSON A1C RADIOLOGI 51364 RADIOLOGY BRANDSER C EXAM 5 MARTHA CHEST 2 [facility] FRONTAL&L ATERAL BLOOD 09065 NEW NEW COUNT 5 [facility] COMPLETE [facility] MED CTR AUTO&[place] [address] NEW NEW INFUSION 5 [facility] THERAPY/P MED CTR MED CTR ROPHYLAXI S /DX 1ST TO 1 [place] [address] NEW NEW LIPASE 5 [facility] MED [facility] MED CTR UNCLASSIF J3490 NEW NEW IED DRUGS 5 [facility] MED CTR INJECTION J2405 NEW NEW 5 [facility] ONDANSETR MED CTR MED CTR ON HCL PER 1 MG COLLECTIO 96531 NEW NEW N VENOUS 5 [facility] BLOOD MED CTR MED CTR VENIPUNCT URE COMPREHEN 63994 NEW NEW SIVE 5 [facility] METABOLIC [place] [address] NEW NEW AMYLASE 5 [facility] MED [facility] MED CTR TOXIN/ANT 23857 NEW NEW ITOXIN 5 [facility] [place] [address] NEW NEW INFUSION 5 [facility] HYDRATION MED [place] [address] RADIOLOGY DOERGER ABDOMEN & 5 KIR PELVIS ASSOCIATE W/CONTRAS S OF NOTH T MATERIAL IAADIADOO 28691 NEW SMALARA 4 [facility]ERRENCE [facility] PSYCHOTHE [address] [address] [place] [address] W/PATIENT CARE CARE 60 MINUTES PSYCHOTHE [address] [place] [address] W/PATIENT CARE CARE 60 MINUTES IAADIADOO 28883 NEW PREMA 3 [facility] CRY INFLUENZA PRIMARY CARE CL FRAMES V2020 GURMEET GURMEET PURCHASES 2 IRF IRF SPHERE V2100 GURMEET GURMEET SINGLE 2 IRF IRF VISION PLANO +/- 4.00 PER LENS FITTING 20586 GURMEET GURMEET SPECTACLE 2 IRF IRF S XCPT APHAKIA MONOFOCAL DETERMINA 79722 G[facility]ET GURMEET TION 2 IRF IRF REFRACTIV E STATE COLLECTIO 93020 NEW NEW N VENOUS 9 [facility] BLOOD MED CTR MED CTR VENIPUNCT URE IAADIADOO 98866 NEW NEW 9 [facility] HORIZONS [place] [address] NEW YOLANDA STREPTOCO 9 [facility]IZONS CCUS MED CTR MED CTR GROUP A IAADIADOO 62785 YOLANDA HILL 8 [place] LIPSCOMB STREPTOCO MEDICAL CCUS [facility] IAADIADOO 79617 Josefina UNGER INFL[facility]ZA MEDICAL [facility] Encounters Encounter Start End Date Code Location Performer Type Date [facility] OUTPATIEN INC T EMERGENCY 94558 [facility] 7 7 [facility] DEPARTMEN INC T VISIT LOW/MODER SEVERITY EMERGENCY 62390 SUZIE BLACK 7 7 PHYSICIAN JR [facility] HIGH/URGE NT SEVERITY HOSPITAL TRENT - 7 7 [facility] OUT[facility] INC T EMERGENCY 89355 SUZIE YUN 7 7 PHYSICIAN III DEPARTMEN [facility], [facility] HIGH/URGE NT SEVERITY EMERGENCY 85851 TRENT 7 7 [facility] DEPARTMEN INC T VISIT LOW/MODER SEVERITY HOSPITAL TRENT - 7 7 [facility] INC T OFFICE 31952 [facility] T V[facility] 5 INC MINUTES HOSPITAL TRENT - 7 7 [facility] OUTPATIEN INC T EMERGENCY 14309 SUZIE [place]ILL[place] DEPT 7 7 PHYSICIAN VISIT S, [facility] HIGH [facility]VERITY& THREAT [facility] EMERGENCY 24815 TRENT 7 7 [facility] DEPARTMEN INC T VISIT MODERATE SEVERITY [facility]PITAL ST[facility] - 7 7 [facility] 22964 [facility] 7 7 EMERGENCY DEPARTMEN T VISIT PHYSICIAN HIGH/URGE S NT SEVERITY EMERGENCY 33306 ST[facility] 7 7 [facility] MODERATE SEVERITY OFFICE 58002 Ayla ADLER OUTPATIEN 7 7 POINT T VISIT FAMILY 10 CARE, IN MINUTES PERIODIC 94609 SUDHEER ADLER PREVENTIV 7 7 POINT E MED EST FAMILY PATIENT CARE, IN 18-39 YRS EMERGENCY 93389 [facility] 6 6 N [facility] COMMUNTIY T VISIT HOSPITA LOW/MODER SEVERITY EMERGENCY 26751 [facility] TRENT 6 6 [facility]IS[facility] PHYS MODERATE SEVERITY HOSPITAL [facility] - 6 6 N OUTPATIEN COMMUNTIY T HOSPITA OFFICE 16932 [facility] OUT[facility] 6 6 HEALTH T VISIT SYSTEMS, 25 INC MINUTES OFFICE 61883 [facility] OUTPATIEN 5 5 HEALTH DERRICK T NEW 30 SYSTEMS, MINUTES INC EMERGENCY 27083 [facility] 5 5 ORESTES DEPARTMEN EMERGENCY T VISIT SERV MODERATE SEVERITY HOSPITAL [facility] 5 5 N OUTPATIEN COMMUNTIY T HOSPITA OFFICE 30159 YOLANDA NEELYPATIEN 5 5 HORIZONS LAR T VISIT FAMILY 15 PRACTICE MINUTES OFFICE 85266 YOLANDA STEPHENS OUTPATIEN 5 5 [facility] LAR T VISIT FAMILY 10 PRACTICE MINUTES HOSPITAL NEW - 5 5 [facility] T EMERGENCY 37052 NEW 5 5 [facility]PART[facility] T VISIT HIGH/URGE NT SEVERITY EMERGENCY 62752 ST 5 5 [facility] DEPART[facility] T VISIT SET UP OPERATOR ST MODERATE SEVERITY [facility]OSPITAL ST - 5 5 [facility] T SET UP OPERATOR ST EMERGENCY 79448 [facility] DEPT 5 5 EMERGENCY VISIT HIGH PHYSICIAN SEVERITY& S THREAT FUN OFFICE 60542 YOLANDA RENAEEN 4 4 HORIZONS TERRENCE T VISIT FAMILY 10 PRACTICE MINUTES OFFICE 72346 YOLANDA STEPHENS OUTPATIEN 4 4 [facility] LAR T VISIT FAMILY 15 PRACTICE MINUTES HOSPITAL NEW - 4 4 HORIZONS [facility] T EMERGENCY 77111 NEW 4 4 [facility] VISIT MODERATE SEVERITY EMERGENCY 24284 NEW 4 4 [facility] VISIT LOW/MODER SEVERITY [facility] NEW - 4 [facility] T OFFICE 93721 NEW CELENARA OUTPATIEN 4 4 [facility] TERRENCE T VISIT PRIMARY 15 [facility]ARE [facility] MINUTES OFFICE 93071 NEW KAT OUTPATIEN 4 4 [facility] LAR T VISIT PRIMARY 15 CARE [facility] MINUTES OFFICE 61331 NEW SMALARA OUTPATIEN 3 3 [facility] TERRENCE T VISIT PRIMARY 15 [facility] MINUTES OFFICE 36080 NEW PREMA OUTPATIEN 3 3 [facility] CRY T VISIT PRIMARY 15 [facility]ARE [facility] MINUTES OFFICE 74776 NEW KAT OUTPATIEN 2 2 [facility] LAR T VISIT PRIMARY 15 CARE [facility] MINUTES OFFICE 44263 GURMEET GURMEET OUTPATIEN 2 2 IRF IRF T NEW 45 MINUTES OFFICE 35748 PREMA PREMA OUTPATIEN 2 2 CRY CRY T VISIT 25 MINUTES OFFICE 55411 NEW PREMA OUTPATIEN 2 2 [facility] CRY T VISIT PRIMARY 15 CARE CL MINUTES OFFICE 68116 PALLAVI PALLAVI OUTPATIEN 2 2 MARTHA MARTHA T VISIT 15 MINUTES OFFICE 85948 PREMA PREMA OUTPATIEN 1 1 CRY CRY T VISIT 15 MINUTES OFFICE 67250 [facility] OUTPATIEN 0 0 [facility] T NEW 45 [facility] NEW - 0 0 [facility] T EMERGENCY 38864 NEW 0 0 [facility] T VISIT LIMITED/M INOR PROB EMERGENCY 91394 ACUTE KAT 0 0 CARE LAR DEPARTMEN BILLING T VISIT [facility] MODERATE SEVERITY OFFICE 60271 OC ARROYOEN 0 0 [facility] VAMSI F T VISIT MEDICAL 15 [facility] OFFICE 61351 YOLANDA STEPHENS OUTPATIEN 0 0 [facility] EDGAR C T VISIT MEDICAL 15 [facility] NEW - 0 0 [facility] T EMERGENCY 84731 NEW 9 9 [facility] T VISIT LOW/MODER SEVERITY HOSPITAL NEW - 9 9 [facility] T OFFICE 26351 YOLANDA HILL OUTPATIEN 8 8 [facility] VISIT MEDICAL 15 CTR [facility] PERIODIC 33400 [facility] SERGIO PREVENTIV 8 8 [facility] E MED EST MEDICAL PATIENT [facility] OFFICE 50376 KAREEM UNGER 8 8 [facility] [place] T VISIT MEDICAL 15 [facility] OFFICE 30452 [facility] FELICITAS OUTPATIEN 8 8 [facility] T NEW 10 [facility] BANK ACCT Y SCHOOL
--- OUTSIDE RECORDS SUMMARY | 2017-02-17 21:55 | External Medical Summary Rpt | CCD ---
Demographics Preferred Language Arabic Marital Status Unknown Mandaeism Affiliation Unknown Race Unknown Ethnic Group Unknown Author Author , FLORENCIA DON Address Unknown Phone Immunization Unable to retrieve immunization data due to connection failure with Immunization Registry. Please try again later.
--- OUTSIDE RECORDS SUMMARY | 2017-02-17 21:55 | External Medical Summary Rpt | CCD ---
Author Author , FLORENCIA Sánchez FLORENCIA Address Unknown Phone [email or web address] Care Team Providers Care Straightener Hand Name Role Phone GURMEET IRF, GURMEET Unavailable [...] SKYE BLACK JR, FULLER, Unavailable Unavailable JR [facility] GILJOCELYN, VAMSI F, Unavailable Unavailable GILVAMSI BANKS F [facility], Unavailable Unavailable [facility] Un[facility] Un[facility] INC, [facility] Unavailable Unavailable HOSPITAL P, [facility] Un[facility] Un[facility] CARE, [place], [facility], [place] KAT LAR, KAT Unavailable Unavailable LAR KAT, EDGAR C, Unavailable Unavailable KAT EDGAR C [facility] [employer] [employer] Unavailable Unavailable [facility] [employer] [employer] [employer] Unavailable Unavailable [facility] [employer] [employer] MARTINA MACK Unavailable Unavailable MARTINA MACK Unavailable Unavailable [facility] Un[facility], [facility], Unavailable Unavailable [facility] Unavailable Unavailable CARE CL, [facility], Unavailable Unavailable [facility] Unavailable Unavailable INC, [facility] Unavailable Unavailable CARE, [facility] Unavailable [facility]available CARE[facility] Unavailable Unavailable [facility], Unavailable Unavailable PLLC, [facility], Unavailable Unavailable [facility] Unavailable Unavailable OF NOTH, [facility] NOT RENUSCH, RENUSCH Unavailable Unavailable SCIFRES, SCIFRES Unavailable Unavailable SCIFRES, SCIFRES Unavailable Unavailable THOMAS, THOMAS Unavailable Unavailable SMALARA TERRENCE, SMALARA Unavailable Unavailable [facility], [facility] Unavailable Unavailable [facility]ENCY SERV, [facility] SOWER GORDON, SOWER GORDON Unavailable Unavailable [facility] Unavailable Unavailable [facility] Unavailable Unavailable [facility], [facility] Unavailable Unavailable [facility], Unavailable Unavailable INC, [facility] Unavailable Unavailable WILSHERE DERRICK, Unavailable Unavailable [facility] Purpose Continuity of Care Document - 06-01-2007 through 2016 Problems Code Diagnosis DOS Provider Status H5203 HYPERMETROP 10-27-2016 SCIFRES IA BILATERAL H5213 MYOPIA 10-27-2016 ADLER BILATERAL Z0100 ENCOUNTER 10-27-2016 MARTINA EXAM EYES & VISION W/O ABNORMAL FIND R1010 UPPER 09-16-2016 [facility]BDOM[facility]AL [facility] PAIN PLLC UNSPECIFIED R1013 EPIGASTRIC 09-16-2016 [facility] PAIN [facility], PLLC I10 ESSENTIAL 09-02-2016 [facility]IMARY [facility] HYPERTENSIO INC N N3000 ACUTE 09-02-2016 [facility] CYSTITIS PHYSICIANS, WITHOUT PLLC HEMATURIA N390 URINARY 09-02-2016 [facility] TRACT PHYSICIANS, INFECTION [facility] SITE NOT SPECIFIED R112 NAUSEA WITH 09-02-2016 [facility] VOMITING PHYSICIANS, UNSPECIFIED [facility] J209 ACUTE 08-23-2016 [facility] UNSPECIFIED INC K529 NONINFECTIV 08-17-2016 SUZIE E PHYSICIANS, GASTROENTER [facility] ITIS & COLITIS UNS R0602 SHORTNESS 08-17-2016 SUZIE OF BREATH PHYSICIANS, [facility] G89232 OTHER LONG 08-17-2016 [facility] P DRUG THERAPY J0390 ACUTE 06-14-2016 [facility] TON[facility]IS [facility] AVITIA UNSPECIFIED E669 OBESITY 05-30-2016 [facility] OF UNSPECIFIED [employer] N926 IRREGULAR 05-30-2016 [facility] MENSTRUATIO [employer] 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 GENERAL RTN W/O ABNORMAL FIND Z124 ENCOUNTER 05-16-2016 [facility] OF OTHER [employer] SCREENING MALIG NEOPLASM CERVIX K029 DENTAL 03-08-2016 [facility] UNSPECIFIED HOSPITA K0889 OTHER 03-08-2016 [facility] SPECIFIED N EMERGENCY DISORDERS PHYS OF TEETH SUPPORT STRCT J020 STREPTOCOCC 01-18-2016 [facility] PHARYNGITIS SYSTEMS, INC B354 TINEA 04-23-2015 [facility] [employer] INC 4019 UNSPECIFIED 01-03-2015 [facility] HYPERTENSIO HOSPITA N 22007 UNSPECIFIED 01-03-2015 [facility] CARIES [facility]OSPITA 5259 UNSPECIFIED 01-03-2015 [facility] DISORDER N EMERGENCY TEETH&SUPPO SERV RTING STRUCTURES 06852 ALTERED 12-14-2014 [facility] MENTAL ASS[facility] STATUS OF [facility] 99544 GENERALIZED 11-17-2014 NEW ANXIET[facility] 09528 UNSPECIFIED 08-01-2014 NEW VIRAL [facility] INFECTION MED CTR IN CCE & UNS SITE 76969 DEHYDRATION 08-01-2014 [facility] 2768 HYPOPOTASSE 08-01-2014 NEW SAAD [facility] 5589 OTH&UNSPEC 07-30-2014 ST NONINFECTIO [facility] JACKAROO GASTROENTER ST ITIS&COLITI S 5718 OTHER 07-30-2014 [facility] CHRONIC ASSOCIATES NONALCOHOLI OF [facility] LIVER DISEASE 33593 NAUSEA WITH 07-30-2014 RADIOLOGY VOMITING ASSOCIATES OF [facility] 86594 DIARRHEA 07-30-2014 [facility] OF [facility] 03691 ABDOMINAL 07-30-2014 RADIOLOGY PAIN, ASSOCIATES UNSPECIFIED OF [facility] SITE V5869 LONG-TERM 07-30-2014 ST (CURRENT) [facility] USE OF MED CTR JACKAROO OTHER ST MEDICATIONS 7291 UNSPECIFIED 04-14-2014 NEW MYALGIA [facility] MYOSITIS PRACTICE V7109 OBSERVATION 03-13-2014 [facility] SUSPECTED CARE MENTAL CONDITION 4659 ACUTE URIS 02-28-2014 NEW OF [facility] UNSPECIFIED FAMILY SITE PRACTICE 7862 COUGH 02-28-2014 NEW [facility] 9221 CONTUSION 01-12-2014 NEW OF CHEST [facility] WALL MED CTR 9598 INJURY 01-12-2014 NEW OTH&UNSPEC [facility] O[facility] SPEC MED CTR SITES INCL MULTIPLE 7089 UNSPECIFIED 11-20-2013 NEW [facility]ICARIA [facility] 59928 HIDRADENITI 07-30-2013 NEW S [facility] PRIMARY [facility]ARE CL 4660 ACUTE 05-20-2013 NEW BRONCHITIS [facility] CL 462 ACUTE 06-01-2012 NEW PHARYNGITIS [facility] CL 3671 MYOPIA 12-20-2011 GURMEET IRF 3688 OTHER 12-19-2011 GURMEET IRF SPECIFIED VISUAL DISTURBANCE S 80908 INSOMNIA 12-01-2011 PRE[facility] UNSPECIFIED CRY 41897 OTHER 12-01-2011 [facility] MALAISE AND CRY FATIGUE 38934 CHEST PAIN 12-01-2011 [facility] UNSPECIFIED CRY 4619 ACUTE 08-03-2011 NEW SINUSITIS, [facility] UNSPECIFIED PRIMARY CARE CL 80100 OBESITY, 01-22-2010 [facility] UNSPECIFIED [facility]ALTH SYSTEMS, INC 4779 ALLERGIC 01-22-2010 [facility] RHINITIS HEALTH CAUSE SYSTEMS, UNSPECIFIED INC 7821 RASH AND 01-22-2010 [facility] OTHER HEALTH NONSPECIFIC SYSTEMS, SKIN INC ERUPTION 0088 INTESTINAL 01-19-2010 NEW INFECTION [facility] DUE TO MED CTR OTHER ORGANISM NEC 3814 NONSUPPRATV 09-18-2009 NEW OTITIS [facility] MEDIA NOT MEDICAL CTR SPEC RURAL ACUT/FORMERLY [facility] 81453 OVERWEIGHT 07-21-[address] [facility] 82791 UNSPECIFIED 07-21-2009 [facility] CONJUNCTIVI MEDICAL CTR TIS [facility] 56215 UNSPECIFIED 05-22-2009 NEW SITE OF [facility] ANKLE MED CTR SPRAIN AND STRAIN 85722 SPRAIN AND 05-22-2009 NEW STRAIN OF [facility] UNSPECIFIED MED CTR SITE OF FOOT E8859 FALL FROM 05-22-2009 NEW OTHER [facility] SLIPPING MED CTR TRIPPING OR STUMBLING 490 BRONCHITIS 02-26-2009 NEW NOT [facility] SPECIFIED MED CTR ACUTE OR CHRONIC 3829 UNSPECIFIED 02-12-2008 NEW OTITIS [facility] MEDIA [facility]ICAL [facility] 09915 VOMITING 02-12-2008 NEW AL[address] [facility] V202 ROUTINE 12-17-2007 NEW INFANT OR [facility] CHILD MEDICAL CTR [facility] 7806 FEVER & OTH 06-25-2007 [facility] V720 EXAMINATION 06-01-2007 DHS/CO [...] 11 -1 -1 .0 00 LL ti MN 10 7- 5- 00 01 ve OL 46 20 20 19 FA OL 60 17 17 52 NE 5 77 LY KEITH CC PH AR ER MA CY 25 MG TA B HY 16 08 09 [address] 72 -1 -1 .0 00 LL ti OC 90 7- 5- 00 01 ve HL 18 20 20 19 FA OR 31 17 17 52 NE OT 7 78 LY HI AZ PH ID AR E MA 25 CY MG TA B SE 65 08 09 30 30 00 CU Ac RT 86 -1 -1 .0 00 LL ti RA 20 7- 5- 00 01 ve LI 01 20 20 19 FA NE 30 17 17 52 NE 5 79 LY HC L PH 10 AR 0 MA MG CY TA BL ET ME 55 07 08 30 30 00 CU Ac TO 11 -1 -1 .0 00 LL ti MN 10 4- 1- 00 01 ve OL 46 20 20 19 FA OL 60 17 17 52 NE 5 77 LY KEITH CC PH AR ER MA CY 25 MG TA B HY 16 07 08 30 [address] 72 -1 -1 .0 00 LL ti OC 90 4- 1- 00 01 ve HL 18 20 20 19 FA OR 31 17 17 52 NE OT 7 78 LY HI AZ PH ID AR E MA 25 CY MG TA B SE 65 07 08 30 30 00 CU Ac RT 86 -1 -1 .0 00 LL ti RA 20 4- 1- 00 01 ve LI 01 20 20 19 FA NE 30 17 17 52 NE 5 79 LY HC L PH 10 AR 0 MA MG CY TA BL ET ME 55 05 06 30 30 00 CU Ac TO 11 -2 -1 .0 00 LL ti MN 10 4- 6- 00 01 ve OL 46 20 20 19 FA OL 60 17 17 52 NE 5 77 LY KEITH CC PH AR ER MA CY 25 MG TA B HY 16 05 06 30 [address] 72 -2 -1 .0 00 LL ti OC 90 4- 6- 00 01 ve HL 18 20 20 19 FA OR 31 17 17 52 NE OT 7 78 LY HI AZ PH ID AR E MA 25 CY MG TA B SE 65 05 06 30 30 00 CU Ac RT 86 -2 -1 .0 00 LL ti RA 20 4- 6- 00 01 ve LI 01 20 20 19 FA NE 30 17 17 52 NE 5 79 LY HC L PH 10 [...] 04 05 6. 3 00 WA Ac MN 14 -2 -2 00 00 L- ti [...] 00 -1 -1 .0 00 LL ti MN 10 3- 2- 00 01 ve OL 12 20 20 19 FA OL 10 17 17 52 NE 3 77 LY KEITH CC PH AR ER MA CY 25 MG TA B HY 16 04 05 30 [address] 72 -1 -1 .0 00 LL ti OC 90 3- 2- 00 01 ve HL 18 20 20 19 FA OR 31 17 17 52 NE OT 7 78 LY HI AZ PH ID AR E MA 25 CY MG TA B SE 65 04 05 30 30 00 CU Ac RT 86 -1 -1 .0 00 LL ti RA 20 3- 2- 00 01 ve LI 01 20 20 19 FA NE 30 17 17 52 NE 5 79 LY HC L PH 10 AR 0 MA MG CY TA BL ET SE 65 03 04 30 30 00 CU Ac RT 86 -1 -0 .0 00 LL ti RA 20 4- 7- 00 01 ve LI 01 20 20 16 FA NE 30 17 17 47 NE 5 91 LY HC L PH 10 AR 0 MA MG CY TA BL ET ME 68 03 04 30 30 00 CU Ac TO 00 -1 -0 .0 00 LL ti MN 10 4- 7- 00 01 ve OL 12 20 20 16 FA OL 10 17 17 47 NE 3 98 LY KEITH CC PH AR ER MA CY 25 MG TA B HY 00 03 04 30 [address] 17 -1 -0 .0 00 LL ti OC 22 4- 7- 00 01 ve HL 08 20 20 16 FA OR 38 17 17 47 NE OT 0 99 LY HI AZ PH ID AR E MA 25 CY MG TA B SE 65 02 03 30 30 00 CU Ac RT 86 -1 -1 .0 00 LL ti RA 20 5- 0- 00 01 ve LI 01 20 20 16 FA NE 30 17 17 47 NE 5 91 LY HC L PH 10 AR 0 MA MG CY TA BL ET ME 68 02 03 30 30 00 CU Ac TO 00 -1 -1 .0 00 LL ti MN 10 5- 0- 00 01 ve OL 12 20 20 16 FA OL 10 17 17 47 NE 3 98 LY KEITH CC PH AR ER MA CY 25 MG TA B HY 00 02 03 30 [address] 17 -1 -1 .0 00 LL ti OC 22 5- 0- 00 01 ve HL 08 20 20 16 FA OR 38 17 17 47 NE OT 0 99 LY HI AZ PH ID AR E MA 25 CY MG TA B ME 29 01 02 4. 1 00 CU Ac TR 30 -1 -1 00 00 LL ti ON 00 3- 0- 0 01 ve ID 22 20 20 17 FA AZ 70 17 17 83 NE OL 5 51 LY E 50 PH 0 AR MG MA CY TA BL ET SE 65 01 02 30 30 00 CU Ac RT 86 -1 -1 .0 00 LL ti RA 20 8- 0- 00 01 ve LI 01 20 20 16 FA NE 30 17 17 47 NE 5 91 LY HC L PH 10 AR 0 MA MG CY TA BL ET ME 68 01 02 30 30 00 CU Ac TO 00 -1 -1 .0 00 LL ti MN 10 8- 0- 00 01 ve OL 12 20 20 16 FA OL 10 17 17 47 NE 3 98 LY KEITH CC PH AR ER MA CY 25 MG TA B HY 00 01 02 30 [address] 17 -1 -1 .0 00 LL ti OC 22 8- 0- 00 01 ve HL 08 20 20 16 FA OR 38 17 17 47 NE OT 0 99 LY HI AZ PH ID AR E MA 25 CY MG TA B BU 00 01 02 30 30 00 CU Ac SP 11 -0 -0 .0 00 LL ti IR 51 6- 3- 00 01 ve ON 69 20 20 17 FA E 20 17 17 71 NE HC 2 74 LY L 15 PH AR MG MA CY TA BL ET FL 00 01 02 2. 7 00 CU Ac UC 17 -0 -0 00 00 LL ti ON 25 9- 3- 0 01 ve AZ 41 20 20 17 FA OL 21 17 17 74 NE E 1 62 LY 15 0 PH MG AR MA TA CY BL ET SE 65 12 01 30 30 00 CU Ac RT 86 -1 -0 .0 00 LL ti RA 20 4- 9- 00 01 ve LI 01 20 20 16 FA NE 30 16 17 47 NE 5 91 LY HC L PH 10 AR 0 MA MG CY TA BL ET ME 68 12 01 30 30 00 CU Ac TO 00 -1 -0 .0 00 LL ti MN 10 4- 9- 00 01 ve OL 12 20 20 16 FA OL 10 16 17 47 NE 3 98 LY KEITH CC PH AR ER MA CY 25 MG TA B HY 00 12 01 [address] 17 -1 -0 .0 00 LL ti OC 22 4- 9- 00 01 ve HL 08 20 20 16 FA OR 38 16 17 47 NE OT 0 99 LY HI AZ PH [...] 2. 5- IN 0. C 02 5 MN 57 09 09 0 15 6 NO [...] D SPHER 0.12-2.00 D CYL EA FITTING 36073 SCIFRES SCIFRES SPECTACLE 7 S XCPT APHAKIA MONOFOCAL OPHTH 39509 [facility] 7 XM&EVAL COMPRE NEW PT 1/> VST SCRATCH V2760 NAYELY ADLER RESISTANT 7 COATING PER LENS LENS V2784 NAYELY ADLER POLYCARBO 7 JOHNNY OR EQUAL ANY INDEX PER LENS URNLS DIP 18551 [facility] STICK/TAB INC INC LET REAGENT AUTO MICROSCOP Y GONADOTRO 65777 [facility] PIN 7 [facility] CHORIONIC INC INC QUALITATI VE BLOOD 69867 [facility] COUNT 7 [facility] COMPLETE INC INC AUTO&[place] [address] [facility] ABDOMINAL 7 [facility] REAL INC INC TIME W/IMAGE LIMITED COMPREHEN 31475 [facility] SIVE 7 [facility] [address] [facility] AMYLASE 7 [place] [address] [facility] LIPASE 7 [facility] INC INC URINE 70680 [facility] 7 [facility] TEST INC INC VISUAL COLOR CMPRSN METHS CULTURE 94198 [facility] BACTERIAL 7 [facility] INC INC QUANTTATI VE COLONY COUNT URINE URINE 12155 [facility] 7 [facility] TEST INC INC VISUAL COLOR CMPRSN METHS CULTURE 30773 [facility] BACTERIAL 7 [facility] INC INC QUANTTATI VE COLONY COUNT URINE URNLS DIP 20643 TERNT [facility] 7 [facility] STICK/TAB INC INC LET REAGENT AUTO MICROSCOP Y IAADIADOO 12917 [facility] 7 [facility] INFLUENZA INC INC IAADIADOO 45184 TR[facility] 7 [facility] STREPTOC[place] [address] [facility] TROPONIN 7 [facility] QUANTITAT INC INC HEATHER GONADOTRO 17975 [facility] PIN 7 [facility] CHORIONIC INC INC QUALITATI VE BLOOD 24257 [facility] COUNT 7 [facility] COMPLETE INC INC AUTO&AUTO DIFRNTL WBC RADIOLOGI 80211 [facility] C EXAM 7 [facility] CHEST 2 INC INC VIEWS FRONTAL&L ATERAL ECG 83144 TRENT NI ROUTINE 7 [facility] W/LEAST P 12 LDS I&R ONLY COMPREHEN 34382 [facility] SIVE 7 [facility] METABOLIC INC INC PANEL FIBRIN 57626 [facility] DGRADJ 7 [facility] PRODUCTS INC INC D-DIMER QUAL/SEMI MARGARITA ECG 05751 [facility] ROUTINE 7 [facility] ECG INC INC W/LEAST 12 LDS TRCG ONLY W/O I&R THERAPEUT 74970 [facility] 7 [facility] [place] PROPHYLAC SADI AVITIA TIC/DX INJECTION SUBQ/IM INJECTION J0561 [facility] 7 [facility] [place] PENICILLI SADI AVITIA N G BENZATHIN E [id number] UNITS BLOOD 53004 [facility] COUNT 7 [place], [place], [place] [address] LAB[facility] OF [facility] TESTOSTER 7 [place], [place], ONE TOTAL INC. INC. GONADOTRO 70140 [facility] PIN 7 [place], [place], FOLLICLE INC. [place] [address] LABONE OF [facility] OF ESTRADIOL [address] [place] [address], INC. INC. COMPREHEN 73884 [facility] SIVE 7 [place], [place], [place] [address] LAB[facility] OF [facility] THYROID 7 [place], [place], STIMULATI INC. INC. NG HORMONE TSH GONADOTRO 23943 LAB[facility] OF [facility] OF PIN 7 [place], [place], LUTEINIZI [place] [address] LAB[facility] OF [facility] OF SEX 7 [place], [place], HORMONE INC. INC. BINDING GLOBULIN CYTP C/V 12506 LAB[facility] OF [facility] AUTO THIN 7 [place], [place], LYR INC. INC. PREPJ SCR MNL RESCR PHYS URINE 49212 [facility] 7 POINT TEST FAMILY VISUAL CARE, IN COLOR CMPRSN METHS IAADIADOO 05356 [facility] THOMAS 6 [employer], [place] [address] [facility] THYROID 6 DIAGNOSTI DIAGNOSTI STIMULATI CS CS NG HORMONE TSH COMPREHEN 87966 [facility]ST SIVE 6 DIAGNOSTI DIAGNOSTI METABOLIC CS CS PANEL HEMOGLOBI 69713 QUEST QUEST N 6 DIAGNOSTI DIAGNOSTI GLYCOSYLA CS CS GREYSON A1C RADIOLOGI 38144 RADIOLOGY BRANDSER C EXAM 5 MARTHA CHEST 2 ASSOCIATE VIEWS [facility] FRONTAL&L ATERAL BLOOD 81666 NEW NEW COUNT 5 [facility] COMPLETE MED CTR MED CTR AUTO&[place] [address] NEW NEW INFUSION 5 [facility] THERAPY/P MED CTR MED CTR ROPHYLAXI S /DX 1ST TO [address] [place] [address] NEW NEW LIPASE 5 [facility]OR[facility]ONS MED CTR MED CTR UNCLASSIF J3490 NEW NEW IED DRUGS 5 [facility] MED CTR MED CTR INJECTION J2405 NEW NEW 5 [facility] ONDANSETR MED CTR MED CTR ON HCL PER 1 MG COLLECTIO 14691 NEW NEW N VENOUS 5 [facility]ONS BLOOD MED CTR MED CTR VENIPUNCT URE COMPREHEN 79057 NEW NEW SIVE 5 [facility] METABOLIC [place] [address] NEW NEW AMYLASE 5 [facility] MED CTR MED CTR TOXIN/ANT 98953 NEW NEW ITOXIN 5 HOR[facility] [place] [address] NEW NEW INFUSION 5 [facility] HYDRATION MED [place] [address] RADIOLOGY DOERGER ABDOMEN & 5 KIR PELVIS ASSOCIATE W/CONTRAS S OF NOTH T MATERIAL IAADIADOO 19333 NEW SMALARA 4 [facility] TERRENCE INFLU[facility]ZA FAMILY PRACTICE PSYCHOTHE 14322 [employer] [address] [place] [address] W/PATIENT CARE CARE 60 MINUTES PSYCHOTHE 48520 [employer] [address] [place] [address] W/PATIENT CARE CARE 60 MINUTES IAADIADOO 62074 NEW PREMA 3 [facility] CRY INFLUENZA PRIMARY CARE CL FRAMES V2020 GURMEET GURMEET PURCHASES 2 IRF IRF SPHERE V2100 GURMEET GURMEET SINGLE 2 IRF IRF VISION PLANO +/- 4.00 PER LENS FITTING 56946 GURMEET GURMEET SPECTACLE 2 IRF IRF S XCPT APHAKIA MONOFOCAL DETERMINA 33445 GURMEET GURMEET TION 2 IRF IRF REFRACTIV E STATE COLLECTIO 61836 NEW NEW N VENOUS 9 [facility] BLOOD MED CTR MED CTR VENIPUNCT URE IAADIADOO 03454 NEW NEW 9 [facility]IZ[facility] HORIZONS [place] [address] NEW YOLANDA STREPTOCO 9 H[facility]IZONS HORIZONS CCUS MED CTR MED CTR GROUP A IAADIADOO 82730 YOLANDA HILL 8 [place] LIP[place] STREPTOCO MEDICAL CCUS [facility] IAADIADOO 16450 Josefina UNGER INFLUENZA [facility]ICAL [facility] Encounters Encounter Start End Date Code Location Performer Type Date [facility] TRENT - 7 7 [facility] OUTPATIEN INC T EMERGENCY 05439 TRENT 7 7 [facility] DEPARTMEN INC T VISIT LOW/MODER SEVERITY EMERGENCY 65807 SUZIE BLACK 7 7 PHYSICIAN JR DEPARTMEN S, [facility] HIGH/URGE NT SEVERITY HOSPITAL TRENT - 7 7 [facility] OUTPATIEN INC T EMERGENCY 02182 SUZIE YUN 7 7 PHYSICIAN III DEPARTMEN S, [facility] T VISIT HIGH/URGE NT SEVERITY EMERGENCY 04669 TRENT 7 7 [facility] DEPARTMEN INC T VISIT LOW/MODER SEVERITY HOSPITAL TRENT - 7 7 [facility] OUTPATIEN INC T OFFICE 45405 [facility] T VISIT 5 INC MINUTES HOSPITAL TRENT - 7 7 [facility] OUTPATIEN INC T EMERGENCY 66626 SUZIE [place] DEPT 7 7 PHYSICIAN VISIT S, [facility] HIGH SEVERITY& THREAT FUNCJ EMERGENCY 05236 TRENT 7 7 MEM HOSP DEPARTMEN INC T VISIT MODERATE SEVERITY [facility]OSPITAL [facility] - 7 7 [facility] 10871 [facility] 7 7 EMERGENCY DEPARTMEN T VISIT PHYSICIAN HIGH/URGE S NT SEVERITY EMERGENCY [address] [facility] V[facility] MODERATE SEVERITY OFFICE 17472 [employer] ADLER OUTPATIEN 7 7 POINT T VISIT FAMILY 10 CARE, IN MINUTES PERIODIC 95845 SUDHEER ADLER PREVENTIV 7 7 POINT E MED EST FAMILY PATIENT CARE, IN 18-39 YRS EMERGENCY 12256 [facility] 6 6 N [facility] T VISIT HOSPITA LOW/MODER SEVERITY EMERGENCY 57682 [facility] TRENT 6 6 [facility] T VISIT PHYS MODERATE SEVERITY HOSPITAL [facility] - 6 6 N OUTPATIEN COMMUNTIY T HOSPITA OFFICE 25913 [facility] THOMAS OUTPATIEN 6 6 HEALTH T VISIT SYSTEMS, 25 INC MINUTES OFFICE 41625 [facility] SHYANN OUTPATIEN 5 5 HEALTH DERRICK T NEW 30 SYSTEMS, MINUTES INC EMERGENCY 15783 [facility] 5 5 ORESTES DEPARTMEN EMERGENCY T VISIT SERV MODERATE SEVERITY HOSPITAL [facility] 5 5 N OUTPATIEN COMMUNTIY T HOSPITA OFFICE 66959 YOLANDA NEELYPATIEN 5 5 H[facility]IZONS LAR T VISIT FAMILY 15 PRACTICE MINUTES OFFICE 89800 YOLANDA STEPHENS OUTPATIEN 5 5 HORIZONS LAR T VISIT FAMILY 10 PRACTICE MINUTES HOSPITAL NEW - 5 5 [facility] OUTPATIEN MED CTR T EMERGENCY 18153 NEW 5 5 [facility] DEPARTMEN MED CTR T VISIT HIGH/URGE NT SEVERITY EMERGENCY 88004 ST 5 5 [facility] DEPARTMEN MED CTR T VISIT [facility] MODERATE SEVERITY HOSPITAL ST - 5 5 [facility] OUTPATIEN MED CTR T [facility] EMERGENCY 61313 [facility] DEPT 5 5 EMERGENCY VISIT HIGH PHYSICIAN SEVERITY& S THREAT FUN OFFICE 75449 YOLANDA RENAEEN 4 4 HORIZONS TERRENCE T VISIT FAMILY 10 PRACTICE MINUTES OFFICE 00210 YOLANDA STEPHENS OUTPATIEN 4 4 [facility]IZ[facility] LAR T VISIT FAMILY 15 PRACTICE MINUTES HOSPITAL NEW - 4 4 [facility] OUTPATIEN MED CTR T EMERGENCY 72972 NEW 4 4 [facility] DEPARTMEN MED CTR T VISIT MODERATE SEVERITY EMERGENCY 14885 NEW 4 4 [facility] DEPARTMEN MED CTR T VISIT LOW/MODER SEVERITY [facility]OSPITAL NEW - 4 4 [facility] T OFFICE 28237 NEW CELENARA OUTPATIEN 4 4 [facility] TERRENCE T VISIT PRIMARY 15 CARE CL MINUTES OFFICE 02014 NEW KAT OUTPATIEN 4 4 [facility] LAR T VISIT PRIMARY 15 CARE CL MINUTES OFFICE 60836 NEW SMALARA OUTPATIEN 3 3 [facility] TERRENCE T VISIT PRIMARY 15 CARE CL MINUTES OFFICE 46945 NEW PREMA OUTPATIEN 3 3 [facility] CRY T VISIT PRIMARY 15 CARE CL MINUTES OFFICE 37211 NEW KAT OUTPATIEN 2 2 [facility] LAR T VISIT PRIMARY 15 CARE CL MINUTES OFFICE 75307 GURMEET GURMEET OUTPATIEN 2 2 IRF IRF T NEW 45 MINUTES OFFICE 57239 PREMA PREMA OUTPATIEN 2 2 CRY CRY T VISIT 25 MINUTES OFFICE 94444 NEW PREMA OUTPATIEN 2 2 [facility] CRY T VISIT PRIMARY 15 CARE CL MINUTES OFFICE 61366 PALLAVI PALLAVI OUTPATIEN 2 2 MARTHA MARTHA T VISIT 15 MINUTES OFFICE 22899 PREMA PREMA OUTPATIEN 1 1 CRY CRY T VISIT 15 MINUTES OFFICE 24862 [facility] OUTPATIEN 0 0 [facility] T NEW 45 [facility] NEW - 0 0 [facility] T EMERGENCY 89758 NEW 0 0 [facility] T VISIT LIMITED/M INOR PROB EMERGENCY 35265 ACUTE KAT 0 0 CARE LAR DEPARTMEN BILLING T VISIT [facility] MODERATE SEVERITY OFFICE 57610 [facility] ARROYOEN 0 0 [facility] VAMSI F T VISIT MEDICAL [address] [facility] OFFICE 67970 YOLANDA STEPHENS OUTPATIEN 0 0 [facility] EDGAR C T VISIT MEDICAL 15 [facility] NEW - 0 0 [facility] T EMERGENCY 76204 NEW 9 9 [facility] DE[facility] T VISIT LOW/MODER SEVERITY HOSPITAL NEW - 9 9 [facility] T OFFICE 79611 YOLANDA HILL OUTPATIEN 8 8 [facility]ORIZONGEORGIANA Diaz VISIT MEDICAL [address] [facility] PERIODIC 01496 [facility] SERGIO PREVENTIV 8 8 [facility]ONGE[facility]IANA Diaz E MED EST MEDICAL PATIENT [facility] OFFICE 25634 KAREEM UNGER 8 8 [facility] [place] T VISIT MEDICAL 15 [facility] OFFICE 27149 [facility]ELICITAS [facility]PATIEN 8 8 [facility] T NEW 10 [facility]
== END 2017-02-12 20:46 | disposition home or self-care (01) ==
LOC: ER 19:10
PROVIDERS: Emergency Medicine
DX: R10.11 Right upper quadrant pain (principal); R19.7 Diarrhea, unspecified; I10 Essential (primary) hypertension
CPT/HCPCS: J2405

== ENCOUNTER 2017-04-06 09:50 | Emergency (ER) | payer OTHER, MEDICAID ==
[~2017-04-06] VITALS: Ht 175.3 cm; Wt 140.6 kg
[~2017-04-06 09:50] MED LIST changes: +METOPROLOL SUCC25 M1 PO; +SERTRALINE 100100 MG PO
--- OUTSIDE RECORDS SUMMARY | 2017-04-06 09:57 | External Medical Summary Rpt | CCD ---
Author Author , FLORENCIA DON Address Unknown Phone [email or web address] Purpose Continuity of Care Document - 02-12-2017 through 2016 Problems Code Diagnosis DOS Provider Status J03.90 Acute tonsillitis , unspecified K52.9 NONINFECTIV E GASTROENTER ITIS AND COLITIS, UNSPECIFIED N39.0 URINARY TRACT INFECTION, SITE NOT SPECIFIED R06.02 SHORTNESS OF BREATH R10.10 UPPER ABDOMINAL PAIN, UNSPECIFIED R10.9 UNSPECIFIED ABDOMINAL PAIN R11.2 NAUSEA WITH VOMITING, UNSPECIFIED Results Labs Lab Lab Date Result Refere Interp Status Commen Order Detail nces retati t Range on Urinalysis with microscopy (02-12-2017 20:00) Urine = OCC O complet leukocy 017 wbc/hpf ed ever 20:00 count (number /volume ) Urine 0.2 0.2 NEG complet urobili 017 L ed nogen 20:00 E.U./dL detecti on by test str [place] 5-10 0-5 complet s 017 5-10 L ed epithel 20:00 #/hpf ial cells detecti on in u Urine > = 1.005-1 complet specifi 017 1.030 .030 ed c 20:00 gravity measure ment Erythro 3-5 3-5 0 complet cytes 017 L ed detecti 20:00 rbc/hpf on in urine sedimen t Urine 1 + NEG complet protein 017 mg/dL ed 20:00 measure ment by automat ed t Urine = 6.5 5.0-8.5 complet pH 017 ed 20:00 Urine NEGATIV NEG complet nitrite 017 E ed 20:00 NEGATIV detecti E L on by test strip Mucus 2+ 2+ L OCC complet detecti 017 ed on in 20:00 urine sedimen t by lig Mucus NEGATIV NEG complet detecti 017 E ed on in 20:00 NEGATIV urine E L sedimen t by lig Urine NEGATIV NEG complet ketones 017 E ed 20:00 NEGATIV detecti E L on by mg/dL automat ed ever Glucose = NEG complet ur 017 NEGATIV ed test 20:00 E strip Urine YELLOW YELLOW complet color 017 YELLOW ed 20:00 L Urine TRACE-I NEG complet blood 017 NTACT ed detecti 20:00 TRACE-I on NTACT L Urine NEGATIV NEG complet total 017 E ed bilirub 20:00 NEGATIV in E L detecti on by test Amorpho TRACE NONE complet us 017 TRACE L ed sedimen 20:00 t detecti on in urine se Urine SL CLEAR complet appeara 017 CLOUDY ed nce 20:00 SL determi CLOUDY nation L Urine test (02-12-2017 20:00) Urine = NEG complet pregnan 017 NEGATIV ed cy test 20:00 E Lipase measurement (02-12-2017 19:36) Lipase = 137 73-393 complet measure 017 U/L ed ment 19:36 Comprehensive metabolic panel (02-12-2017 19:36) Protein = 8.3 6.4-8.2 complet total 017 gm/dL ed ser/milad 19:36 s ALT = 42 12-78 complet (SGPT) 017 U/L ed ser/milad 19:36 s Serum = 23 15-37 complet or 017 U/L ed plasma 19:36 asparta te aminotr ansfera Serum = 137 136-145 complet sodium 017 mmoL/L ed measure 19:36 ment Serum = 3.3 3.5-5.1 complet potassi 017 mmoL/L ed um 19:36 measure ment Serum = 118 74-106 complet or 017 mg/dL ed plasma 19:36 glucose measure ment (mas Serum = 4.3 1.3-3.2 complet globuli 017 gm/dL ed n 19:36 measure ment (mass/v olume) Estimat = 107 59- complet ed 017 ML/MIN ed glomeru 19:36 lar filtrat ion rate (GF Comment: REFERENCE RANGE: >60 ML/MIN/1.73 SQUARE METERS Comment: If this patient is -[place], then multiply the Comment: result by 1.210. Estimat = 211 50-200 complet ion of 017 ML/MIN ed creatin 19:36 ine renal clearan ce Serum = 0.7 0.55-1. complet or 017 mg/dL 02 ed plasma 19:36 creatin ine measure ment ( Carbon = 30 21.0-32 complet dioxide 017 mmoL/L .0 ed 19:36 measure ment Serum = 99 98-107 complet or 017 mmoL/L ed plasma 19:36 chlorid e measure ment (mo Serum = 9.3 8.5-10. complet or 017 mg/dL 1 ed plasma 19:36 calcium measure ment (mas Serum = 9 7-18 complet or 017 mg/dL ed plasma 19:36 urea nitroge n measure men Serum = 0.3 0.2-1.0 complet or 017 mg/dL ed plasma 19:36 total bilirub in measure m Serum = 93 46-116 complet or 017 U/L ed plasma 19:36 alkalin e phospha tase robbie Serum = 4.0 3.4-5.0 complet or 017 gm/dL ed plasma 19:36 albumin measure ment (mas Serum = 0.9 1.1-1.8 complet or 017 ed plasma 19:36 albumin /globul in mass ra Amylase ser/plas (02-12-2017 19:36) Amylase = 32 25-115 complet 017 U/L ed ser/milad 19:36 s CBC w auto diff (02-12-2017 19:36) Blood = 12.5 4.5-13. complet leukocy 017 K/MM3 0 ed ever 19:36 count (number /volume ) Automat = 13.4 11.5-17 complet ed 017 % .5 ed erythro 19:36 cyte distrib ution width Red = 4.49 4.2-5.4 complet blood 017 M/mm3 ed cell 19:36 count Blood = 337 142-424 complet platele 017 K/mm3 ed t count 19:36 Automat = 7.7 7.4-10. complet ed 017 fl 4 ed blood 19:36 platele t mean volume robbie [place] % = 3.5 % 1.7-9.3 complet 017 ed 19:36 Absolut = 0.4 0.1-1.0 complet e 017 K/mm3 ed monocyt 19:36 e count Automat = 87.6 82.2-97 complet ed 017 fl .8 ed erythro 19:36 cyte mean corpusc ular v Automat = 32.7 31.8-35 complet ed 017 g/dl .4 ed erythro 19:36 cyte mean corpusc ular h Mean = 28.7 27-31.2 complet corpusc 017 pg ed ular 19:36 hemoglo bin (MCH) determ Lymphoc = 21.1 10-50.0 complet yte 017 % ed count, 19:36 blood, automat ed Absolut = 2.6 0.7-4.5 complet e 017 K/mm3 ed lymphoc 19:36 yte count Blood = 12.9 12.2-16 complet hemoglo 017 g/dL .2 ed bin 19:36 measure ment (mass/v olum Blood = 39.4 37.0-47 complet hematoc 017 % .0 ed rit 19:36 (volume fractio n) Granulo = 74.2 37.0-80 complet cyte 017 % .0 ed percent 19:36 age Blood = 9.2 1.8-7.8 complet granulo 017 K/mm3 ed cytes 19:36 automat ed count (numb Automat = 1.1 % 0.1-12. complet ed 017 0 ed blood 19:36 eosinop hils/10 0 leukocy t Automat = 0.1 0.0-0.4 complet ed 017 K/mm3 ed blood 19:36 eosinop hil count Baso % 10-08-2 = 0.2 % 0.1-2.0 complet 017 ed 19:36 Automat 10--2 = 0.0 0-0.2 complet ed 017 K/MM3 ed blood 19:36 basophi l count (count/ vo
--- OUTSIDE RECORDS SUMMARY | 2017-04-06 09:57 | External Medical Summary Rpt | CCD ---
Author Author , FLORENCIA DON Address Unknown Phone [email or web address] Purpose Continuity of Care Document - 02-12-2017 [...] SQUARE METERS Comment: If this patient is -Swazi, then multiply the Comment: result by 1.210. [...] blood 19:36 platele t mean volume robbie [place] % = 3.5 % 1.7-9.3 complet 017 [...]
--- OUTSIDE RECORDS SUMMARY | 2017-04-06 09:58 | External Medical Summary Rpt | CCD ---
Author Author , FLORENCIA DON Address Unknown Phone [email or web address] Support Name Relationship Address Phone PIEDAD, Next Of Kin Unknown Unavailable SIN Immunization Name Date Rout CVX Reac Dose Comm Prov Is Faci e tion ent ider Refu lity Give sed n Infl 11-0 88 999 Hist JEFF No JEFF uenz 3-20 oric LO LO a, 14 al UF Info rmat ion - Sour ce Unsp ecif ied Pneu 11-0 109 999 Hist JEFF No JEFF moco 1-20 oric LO LO ccal 13 al , UF Info rmat ion - Sour ce Unsp ecif ied DTaP 08-1 107 999 Hist H194 No H194 , UF 2-20 oric 03 al Info rmat ion - Sour ce Unsp ecif ied MMR 07-1 3 999 Hist H194 No H194 1-20 oric 02 al Info rmat ion - Sour ce Unsp ecif ied Rajesh 07-1 10 999 Hist H194 No H194 o-IP 1-20 oric V 02 al Info rmat ion - Sour ce Unsp ecif ied Vari 07-2 21 999 Hist H194 No H194 cell 0-19 oric a 98 al Info rmat ion - Sour ce Unsp ecif ied DTP- 04-2 22 999 Hist H194 No H194 Hib 0-19 oric 98 al Info rmat ion - Sour ce Unsp ecif ied Rajesh 04-2 2 999 Hist H194 No H194 o-OP 0-19 oric V 98 al Info rmat ion - Sour ce Unsp ecif ied MMR 04-2 3 999 Hist H194 No H194 0-19 oric 98 al Info rmat ion - Sour ce Unsp ecif ied Hep 01-0 8 999 Hist H194 No H194 B, 5-19 oric ped/ 98 al adol Info rmat ion - Sour ce Unsp ecif ied DTP- 01-0 22 999 Hist H194 No H194 Hib 5-19 oric 98 al Info rmat ion - Sour ce Unsp ecif ied Rajesh 07-0 2 999 Hist H194 No H194 o-OP 2-19 oric V 97 al Info rmat ion - Sour ce Unsp ecif ied DTP- 07-0 22 999 Hist H194 No H194 Hib 2-19 oric 97 al Info rmat ion - Sour ce Unsp ecif ied Hep 03-0 8 999 Hist H194 No H194 B, 4-19 oric ped/ 97 al adol Info rmat ion - Sour ce Unsp ecif ied DTP- 03-0 22 999 Hist H194 No H194 Hib 4-19 oric 97 al Info rmat ion - Sour ce Unsp ecif ied Rajesh 03-0 2 999 Hist H194 No H194 o-OP 4-19 oric V 97 al Info rmat ion - Sour ce Unsp ecif ied
--- OUTSIDE RECORDS SUMMARY | 2017-04-06 09:58 | External Medical Summary Rpt | CCD ---
Author Author [employer] Organization [employer] Address Unknown Phone Unavailable Purpose Continuity of Care Document - through 2016
--- OUTSIDE RECORDS SUMMARY | 2017-04-06 09:58 | External Medical Summary Rpt | CCD ---
Author Author , FLORENCIA DON Address Unknown Phone [email or web address] Name Relationship Address Phone PIEDAD, Next [...]
[2017-04-06 10:13] LABS: URINE BILIRUBIN - DIPSTICK NEGATIVE (NEG)
[2017-04-06 10:14] LABS: URINE BLOOD TRACE (NEG)
--- NOTE | 2017-04-06 10:20 | Urgent Treatment Center Report ---
History of Present Issue Date/Time Seen by Provider 04/06/17 1017 Visit Reason Pt arrived:Walked Presenting Problem:PT STATES SHE WAS SEEN ON [facility] ON FOR KIDNEY INFECTION. DID NOT RECEIVE ANTIBIOTIC THAT DAY. WAS CONTACTED BY THE [facility] DR A COUPLE OF DAYS AGO AND SAID SHE NEEDS AN ANTIBIOTIC. Location if Accident: Onset of symptoms date/time:/ or onset unknown for:MEDICAL HX UNKNOWN Have you (or family members/close friends) recently traveled outside the [facility]? N If Yes, where/when: Have you had exposure to infectious disease within the past month? TB? Other? Specify: c/o being told to report to doctor for antibiotic. Was seen in [facility] ER 03/29 for pain rt abdomen/back. Report ER MDs were changing shifts and she wasn't treated w/ medication. Unsure of diagnosis. States she received a callback "few days later" and was told she needed an antibiotic so she should follow up with primary care. Doesn't know why or what for. Just now getting here. Overall, symptoms improved. Still mild back pain on right w/ persistant dysuria. Records were requesting from [facility]. Seen 03/29 for N/V/D new that day but rt flank pain x 2 weeks. abdominal pain workup w/ IV fluids, zofran, CT and labs. Dx N/V and dehydration. "she notes she feels better after IVFs, noted mild bump in lactate, but she feels better and is non-toxic and is not in distress. HR around 100, better. Noted neg CT and otherwise nonspecific labs. Suggest supportive care and continued hydration. Lastic acid from volume depletion of v/d without other acute findings." ER MD. Rx zofran and mobic. Addendum on chart 03/31 for cx callback that states "Patient is doing well now. No fever and no vomiting and no dysuria. Specimen was contaminated and I will not treat. She will f/u with her PCP to make sure there is really no UTI. two U/A listed in chart, just 2.5 hours apart. Both w blood and protein and the initial one w/ leuks/bacteria as well as many epith cells. Urine cx resulted on 03/30 w/ >100,000 gram neg rods and another w/ two organisms, suspect contamination then a final on 03/31 w/ > 100,000 ecoli w/ sensitivity listed. However, pt was never started on medication. Source patient Exam Limitations no limitations ALLERGIES Coded Allergies: No Known Allergies (09/16/16) Home Medications Active Scripts Pantoprazole Sodium (Protonix) 40 MG PO DAILY #30 ECT Prov: 09/16/16 ONDANSETRON HCL (Zofran 4MG Tab) 4 MG PO Q6HP PRN NAUSEA AND VOMITING #20 TAB Prov: 09/16/16 Reported Medications HYDROCHLOROTHIAZIDE (Hydrochlorothiazide) 25 MG PO DAILY Metoprolol Succinate Xl (Metoprolol ER 25MG) 25 MG PO DAILY Sertraline Hydrochloride (Sertraline 100MG) 100 MG PO DAILY History Medical History General CAD? No Angina: No MD: No Hypertension? Yes Hyperlipidemia? No CHF? No DVT? No PE? No COPD? No Asthma? No Anemia? No GERD? No Gastric ulcers? No GI Bleed? No Hernia? No Thyroid Problems? No Hypothyroidism? No CVA? No Seizures? No Diabetes? No Renal Insuffiency? No UTI? No Stones? No BPH? No GB Disease: No Nephritic Syndrome? No Asplenia? No Hepatitis? No Sickle Cell Disease? No Arthritis? No Migraines? No Cataracts? No Glaucoma? No MRSA? No HIV? No TB? No Anxiety? No Depression? No Cancer? No More? No Immunization HX DT/Tetanus 1-4 Years Ago Surgical Hx Previous Surgery?N SU[employer] Hx LMP 3 Weeks Ago Social History Smoking Hx Smoker: Never Smoker Tobacco: No Alcohol Alcohol: No Review of Systems All Other Systems Reviewed and Negative Constitutional denies fever, denies malaise Gastrointestinal denies abdominal pain, denies nausea, denies vomiting Genitourinary see HPI, frequency. denies: discharge, hesitancy, hematuria, dyspareunia. Musculoskeletal see HPI, denies joint pain Psychiatric/Neurological denies headache Physical Exam Vital Signs Vital Signs Date Time Temp Pulse Resp B/P Pulse O2 O2 Flow FiO2 Ox Delivery Rate 04/06 1101 98.3 102 20 151/97 98 04/06 1006 98.3 112 20 154/99 98 General Appearance no apparent distress, obese Respiratory Status No: respiratory distress. Cardiovascular no peripheral edema Gastrointestinal normal bowel sounds, non tender, soft, no organomegaly, no pulsatile mass, no guarding, no rebound, no suprapubic tenderness, no bladder distention Back no CVA tenderness Neurologic alert, oriented x 3 Skin normal color, warm/dry Medical Decision Making LABS/Meds/Orders Pt receiving controlled substance in ED? No Results/Orders Laboratory Tests 04/06/17 1013: Urine Color YELLOW, Urine Appearance Clear, Urine pH 5.5, Ur Specific [place] 1.025, Urine Protein 3+ H, Urine Ketones NEGATIVE, Urine Blood TRACE H, Urine Nitrate NEGATIVE, Urine Bilirubin NEGATIVE, Urine Urobilinogen 0.2, Ur Leukocyte Esterase NEGATIVE, Urine Glucose NEGATIVE Orders Procedure Date/time Status [facility] URINE DIPSTICK 04/06 1013 Complete Progress [facility] Progress Notes Date 04/06/17 Time 1017 Comment [place] [facility] Medical Records contacted for records from ER visit. Faxing records to include labs, CT, U/A and cultures. Patient aware. Procedures General/Other Procedure - ER records reviewed from [facility] Departure Departure Time of Disposition 1053 Disposition DC Home or Self Care(routine) Clinical Impression Primary Impression: E-coli UTI Condition STABLE Referrals NO REFERRAL Be SURE to follow up anytime for new or worsening symptoms, AND in 48 hours if no improvement AND in 10-14 days to repeat UA and ensure infection resolved and blood no longer present. ( We have provided you with a list of providers accepting patients. I would encourage you find him a new primary care provider and make an appt LOUIS as it can take weeks to get a new patient appointment. In the meantime, follow up in the clinic or ER for new, worsening or persistent symptoms.) Patient Instructions DI for Hematuria, DI for Urinary Tract Infection (UTI) Additional Instructions * increase fluids, Water and NOT soda or tea * Start antibiotic immediately and be sure to take as ordered for the FULL length of time although you should start to see improvement over the next 48 hours. * Be SURE to follow up anytime for new or worsening symptoms, AND in 48 hours if no improvement AND in 10-14 days to repeat UA and ensure infection resolved and blood no longer present. Discharge Counseling Counseled pt/family regarding diagnosis, test results (from [facility] ER rvwd), medications/RX, home care, follow up needs Prescriptions Current Visit Scripts SULFAMETHOXAZOLE W/TRIMETHOPRI (Bactrim Ds Tab) 1 TABLET PO BID #20 TAB at 3253
--- NOTE | 2017-04-06 10:20 | Urgent Treatment Center Report ---
History of Present Issue Date/Time Seen by Provider 04/06/17 1017 Visit Reason Pt arrived:Walked Presenting Problem:PT STATES SHE WAS SEEN ON [facility] ON FOR KIDNEY INFECTION. DID NOT RECEIVE ANTIBIOTIC THAT DAY. WAS CONTACTED BY THE [facility] ER DR A COUPLE OF DAYS AGO AND SAID SHE NEEDS AN ANTIBIOTIC. Location if Accident: Onset of symptoms date/time:/ or onset unknown for:MEDICAL HX UNKNOWN Have you (or family members/close friends) recently traveled outside the [facility]? N If Yes, where/when: Have you had exposure to infectious disease within the past month? TB? Other? Specify: c/o being told to report to doctor for antibiotic. Was seen in [facility] ER 03/29 for pain rt abdomen/back. Report ER MDs were changing shifts and she wasn't treated w/ medication. Unsure of diagnosis. States she received a callback "few days later" and was told she needed an antibiotic so she should follow up with primary care. Doesn't know why or what for. Just now getting here. Overall, symptoms improved. Still mild back pain on right w/ persistant dysuria. Records were requesting from [facility]. Seen 03/29 for N/V/D new that day but rt flank pain x 2 weeks. abdominal pain workup w/ IV fluids, zofran, CT and labs. Dx N/V and dehydration. "she notes she feels better after IVFs, noted mild bump in lactate, but she feels better and is non-toxic and is not in distress. HR around 100, better. Noted neg CT and otherwise nonspecific labs. Suggest supportive care and continued hydration. Lastic acid from volume depletion of v/d without other acute findings." ER MD. Rx zofran and mobic. Addendum on chart 03/31 for cx callback that states "Patient is doing well now. No fever and no vomiting and no dysuria. Specimen was contaminated and I will not treat. She will f/u with her PCP to make sure there is really no UTI. two U/A listed in chart, just 2.5 hours apart. Both w blood and protein and the initial one w/ leuks/bacteria as well as many epith cells. Urine cx resulted on 03/30 w/ >100,000 gram neg rods and another w/ two organisms, suspect contamination then a final on 03/31 w/ > 100,000 ecoli w/ sensitivity listed. However, pt was never started on medication. Source patient Exam Limitations no limitations ALLERGIES Coded Allergies: No Known Allergies (09/16/16) Home Medications Active Scripts Pantoprazole Sodium (Protonix) 40 MG PO DAILY #30 ECT Prov: 09/16/16 ONDANSETRON HCL (Zofran 4MG Tab) 4 MG PO Q6HP PRN NAUSEA AND VOMITING #20 TAB Prov: 09/16/16 Reported Medications HYDROCHLOROTHIAZIDE (Hydrochlorothiazide) 25 MG PO DAILY Metoprolol Succinate Xl (Metoprolol ER 25MG) 25 MG PO DAILY Sertraline Hydrochloride (Sertraline 100MG) 100 MG PO DAILY History Medical History General CAD? No Angina: No NE: No Hypertension? Yes Hyperlipidemia? No CHF? No DVT? No PE? No COPD? No Asthma? No Anemia? No GERD? No Gastric ulcers? No GI Bleed? No Hernia? No Thyroid Problems? No Hypothyroidism? No CVA? No Seizures? No Diabetes? No Renal Insuffiency? No UTI? No Stones? No BPH? No GB Disease: No Nephritic Syndrome? No Asplenia? No Hepatitis? No Sickle Cell Disease? No Arthritis? No Migraines? No Cataracts? No Glaucoma? No MRSA? No HIV? No TB? No Anxiety? No Depression? No Cancer? No More? 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 denies: discharge, hesitancy, hematuria, dyspareunia. Musculoskeletal see HPI, denies joint pain Psychiatric/Neurological denies headache Physical Exam Vital Signs Vital Signs Date Time Temp Pulse Resp B/P Pulse O2 O2 Flow FiO2 Ox Delivery Rate 04/06 1101 98.3 102 20 151/97 98 04/06 1006 98.3 112 20 154/99 98 General Appearance no apparent distress, obese Respiratory Status No: respiratory distress. Cardiovascular no peripheral edema Gastrointestinal normal bowel sounds, non tender, soft, no organomegaly, no pulsatile mass, no guarding, no rebound, no suprapubic tenderness, no bladder distention Back no CVA tenderness Neurologic alert, oriented x 3 Skin normal color, warm/dry Medical Decision Making LABS/Meds/Orders Pt receiving controlled substance in ED? No Results/Orders Laboratory Tests 04/06/17 1013: Urine Color YELLOW, Urine Appearance Clear, Urine pH 5.5, Ur Specific [place] 1.025, Urine Protein 3+ H, Urine Ketones NEGATIVE, Urine Blood TRACE H, Urine Nitrate NEGATIVE, Urine Bilirubin NEGATIVE, Urine Urobilinogen 0.2, Ur Leukocyte Esterase NEGATIVE, Urine Glucose NEGATIVE Orders Procedure Date/time Status [facility] URINE DIPSTICK 04/06 1013 Complete Progress [facility] Progress Notes Date 04/06/17 Time 1017 Comment [facility] Medical Records contacted for records from ER visit. Faxing records to include labs, CT, U/A and cultures. Patient aware. Procedures General/Other Procedure - ER records reviewed from [facility] Departure Departure Time of Disposition 1053 Disposition DC Home or Self Care(routine) Clinical Impression Primary Impression: E-coli UTI Condition STABLE Referrals NO REFERRAL Be SURE to follow up anytime for new or worsening symptoms, AND in 48 hours if no improvement AND in 10-14 days to repeat UA and ensure infection resolved and blood no longer present. ( We have provided you with a list of providers accepting patients. I would encourage you find him a new primary care provider and make an appt LOUIS as it can take weeks to get a new patient appointment. In the meantime, follow up in the clinic or ER for new, worsening or persistent symptoms.) Patient Instructions DI for Hematuria, DI for Urinary Tract Infection (UTI) Additional Instructions * increase fluids, Water and NOT soda or tea * Start antibiotic immediately and be sure to take as ordered for the FULL length of time although you should start to see improvement over the next 48 hours. * Be SURE to follow up anytime for new or worsening symptoms, AND in 48 hours if no improvement AND in 10-14 days to repeat UA and ensure infection resolved and blood no longer present. Discharge Counseling Counseled pt/family regarding diagnosis, test results (from [facility] ER rvwd), medications/RX, home care, follow up needs Prescriptions Current Visit Scripts SULFAMETHOXAZOLE W/TRIMETHOPRI (Bactrim Ds Tab) 1 TABLET PO BID #20 TAB at 8246
[2017-04-06] MEDS ORDERED: BACTRIM DS 8001 TA1 PO (10:56)
[2017-04-06 11:01] VITALS: BP 151/97
== END 2017-04-06 11:02 | disposition home or self-care (01) ==
LOC: UTC 09:50
PROVIDERS: Nurse Practitioner Family
DX: L50.0 Allergic urticaria (principal); I10 Essential (primary) hypertension

== ENCOUNTER 2017-04-13 11:10 | Emergency (ER) | payer OTHER, MEDICAID ==
[~2017-04-13] VITALS: Ht 175.3 cm; Wt 140.6 kg
[~2017-04-13 11:10] MED LIST changes: +BACTRIM DS 8001 TA1 PO
--- NOTE | 2017-04-13 12:08 | Urgent Treatment Center Report ---
History of Present Issue Date/Time Seen by Provider 04/13/17 1208 Visit Reason Pt arrived:Walked Presenting Problem:RASH LEFT ARM LEFT ABD BEGAN THIS AM Location if Accident: Onset of symptoms date/time:/ or onset unknown for:MEDICAL HX UNKNOWN Have you (or family members/close friends) recently traveled outside the [place]? N If Yes, where/when: Have you had exposure to infectious disease within the past month? TB? Other? Specify: Patient state that she noticed that she was breaking out in a rash on her left upper arm and left side State that she has sensative skin and unsure what she may have touched or got exposed to State that she has had several contact reactions before State that rash is itchy and continues to spread ALLERGIES Coded Allergies: No Known Allergies (09/16/16) Home Medications Active Scripts Pantoprazole Sodium (Protonix) 40 MG PO DAILY #30 ECT Prov: 09/16/16 ONDANSETRON HCL (Zofran 4MG Tab) 4 MG PO Q6HP PRN NAUSEA AND VOMITING #20 TAB Prov: 09/16/16 SULFAMETHOXAZOLE W/TRIMETHOPRI (Bactrim Ds Tab) 1 TABLET PO BID #20 TAB Prov: 04/06/17 Reported Medications HYDROCHLOROTHIAZIDE (Hydrochlorothiazide) 25 MG PO DAILY Metoprolol Succinate Xl (Metoprolol ER 25MG) 25 MG PO DAILY Sertraline Hydrochloride (Sertraline 100MG) 100 MG PO DAILY History Medical History General CAD? No Angina: No OK: No Hypertension? Yes Hyperlipidemia? No CHF? No DVT? No PE? No COPD? No Asthma? No Anemia? No GERD? No Gastric ulcers? No GI Bleed? No Hernia? No Thyroid Problems? No Hypothyroidism? No CVA? No Seizures? No Diabetes? No Renal Insuffiency? No UTI? No Stones? No BPH? No GB Disease: No Nephritic Syndrome? No Asplenia? No Hepatitis? No Sickle Cell Disease? No Arthritis? No Migraines? No Cataracts? No Glaucoma? No MRSA? No HIV? No TB? No Anxiety? No Depression? No Cancer? No More? No Immunization HX DT/Tetanus 1-4 Years Ago Surgical Hx Previous Surgery?N Social History Smoking Hx Smoker: Never Smoker Tobacco: No Alcohol Alcohol: No Review of Systems All Other Systems Reviewed and Negative Skin rash Physical Exam Vital Signs Vital Signs Date Time Temp Pulse Resp B/P Pulse O2 O2 Flow FiO2 Ox Delivery Rate 04/13 1150 98.6 100 18 148/100 96 General Appearance normal appearance, WD/WN, no apparent distress Respiratory Status Yes: trachea midline, chest symmetrical, non tender chest. No: respiratory distress. Lung Sounds bilateral: normal breath sounds, lungs clear. Cardiovascular normal exam, regular rate/rhythm Neurologic alert, normal exam, oriented x 3 Skin rash, area on hip is red, raised hive like that seen with allergic reaction , rash on arm raised urticaria describes as itchy and spreading unsure of what she may have been exposed to Comments Upon talking with patient she admitts that the family she has been staying with she thinks has bed bugs that she has seen several around and thinks that may have been what bite her and made her have a reaction Medical Decision Making LABS/Meds/Orders Pt receiving controlled substance in ED? No Results/Orders Current Medication Orders Sig/Jamal Start time Last Medication Dose Route Stop Time Status Admin Diphenhydramine HCl 0 .STK-MED ONE 04/13 1224 DC PO Famotidine 0 .STK-MED ONE 04/13 1224 DC .ROUTE Loratadine 0 .STK-MED ONE 04/13 1224 DC PO Methylprednisolone 0 .STK-MED ONE 04/13 1224 DC Sodium Succinate .ROUTE Diphenhydramine HCl 50 MG ONCE ONE 04/13 1215 DC 04/13 PO 04/136 1227 Famotidine 20 MG ONCE ONE 04/13 1215 DC 04/13 PO 04/136 1227 Loratadine 10 MG ONCE ONE 04/13 1215 DC 04/13 PO 04/136 1227 Methylprednisolone 125 MG ONCE ONE 04/13 1215 DC 04/13 Sodium Succinate IM 04/13 1216 1227 Departure Departure Time of Disposition 1230 Disposition DC Home or Self Care(routine) Clinical Impression Primary Impression: Urticaria Condition STABLE Patient Instructions DI for General Allergic Reactions Additional Instructions Over the counter Benadryl as needed for itching FOllow up with family doctor Return if needed Discharge Counseling Counseled pt/family regarding diagnosis, medications/RX, home care, follow up needs at 1247
[2017-04-13 12:50] VITALS: BP 142/95
--- OUTSIDE RECORDS SUMMARY | 2017-04-13 12:50 | External Medical Summary Rpt | CCD ---
Author Author , FLORENCIA DON Address Unknown Phone [email or web address] Care Team Providers Care Master Technician Name Role Phone GURMEET IRF, GURMEET Unavailable Unavailable IRF ADLER, ADLER Unavailable Unavailable [facility], Unavailable Unavailable [facility] PRE[facility] CR[facility], Unavailable Unavailable PRE[facility] CR[facility], Unavailable Unavailable [facility] Unavailable Unavailable [facility], [facility], Unavailable Unavailable [facility] Unavailable Unavailable INC, [facility] Unavailable Unavailable HOSPITAL P, [facility] Unavailable Unavailable CARE, [place], [facility], [place] EDG[facility] STEPHENS, Unavailable Unavailable EDGAR STEPHENS [facility] [employer] Unavailable Unavailable [facility] [employer] MARTINA MACK Unavailable Unavailable [facility] Unavailable Unavailable PRACTICE, [facility], Unavailable Unavailable [facility] Unavailable Unavailable CARE CL, [facility] CL [facility], Unavailable Unavailable [facility]available Unavailable INC, [facility] Unavailable Unavailable CARE, [facility] CARE [facility] Unavailable [facility]available [facility], [facility], Unavailable Unavailable [facility], [facility], [facility] Unavailable Unavailable OF NOT, [facility] SC[facility], SC[facility] Unavailable Unavailable [facility] Unavailable [facility], [facility] Unavailable Unavailable INTERIOR H[facility]ICULTURIST [facility], [facility] Unavailable [facility], Unavailable Unavailable INC, [facility] Purpose Continuity of Care Document - 06-01-2007 through 2016 Problems Code Diagnosis DOS Provider Status E86.0 DEHYDRATION 04-06-2017 F41.9 ANXIETY 04-06-2017 DISORDER, UNSPECIFIED I10 ESSENTIAL 04-06-2017 (PRIMARY) HYPERTENSIO N R11.2 NAUSEA WITH 04-06-2017 VOMITING, UNSPECIFIED R19.7 DIARRHEA, 04-06-2017 UNSPECIFIED R30.0 DYSURIA 04-06-2017 Z136 ENCOUNTER 01-26-2017 HEALTH SCREENING POINT FOR FAMILY CARDIOVASCU CARE, IN LAR DISORDERS Z309 ENCOUNTER 01-26-2017 HEALTH FOR POINT CONTRACEPTI FAMILY VE CARE, IN MANAGEMENT UNS Z6851 BODY MASS 01-26-2017 HEALTH INDEX BMI POINT PEDIATRIC < FAMILY 5TH % FOR CARE, IN AGE H5203 HYPERMETROP 10-27-2016 SCIFRES IA BILATERAL H5213 MYOPIA 10-27-2016 ADLER BILATERAL Z0100 ENCOUNTER 10-27-2016 MARTINA EXAM EYES & VISION W/O ABNORMAL FIND R1010 UPPER 09-16-2016 [facility]BDOM[facility]IN [facility] UNSPECIFIED R1013 EPIGASTRIC 09-16-2016 [facility] PAIN [facility], PLLC I10 ESSENTIAL 09-02-2016 [facility] HYPERTEN[facility] N N3000 ACUTE 09-02-2016 [facility] CYSTITIS [facility], WITHOUT PLLC HEMATURIA N390 URINARY 09-02-2016 [facility] TRACT [facility], INFECTION PLLC SITE NOT SPECIFIED R112 NAUSEA WITH 09-02-2016 [facility] VOMITING PHYSICIANS, UNSPECIFIED PLLC J209 ACUTE 08-23-2016 [facility] UNSPECIFIED INC K529 NONINFECTIV 08-17-2016 [facility] E PHYSICIANS, GASTROENTER PLLC ITIS & COLITIS UNS R0602 SHORTNESS 08-17-2016 [facility] OF BREATH PHYSICIANS, [facility] H70739 OTHER LONG 08-17-2016 [facility] P DRUG THERAPY J0390 ACUTE 06-14-2016 [facility] UNSPECIFIED E669 OBESITY 05-30-2016 [facility] OF UNSPECIFIED [employer], INC. N926 IRREGULAR 05-30-2016 [facility] MENSTRUATIO [employer] INC. N UNSPECIFIED A599 TRICHOMONIA 05-20-2016 HEALTH SIS POINT UNSPECIFIED FAMILY CARE, IN Y47010 ENCOUNTER 05-16-2016 [facility] PRIVATE DETECTIVE EXAM [employer]. GENERAL RTN W/O ABNORMAL FIND Z124 ENCOUNTER 05-16-2016 [facility] OTHER [employer], INC. SCREENING MALIG NEOPLASM CERVIX K029 DENTAL 03-08-2016 [facility] UNSPECIFIED HOSPITA K0889 OTHER 03-08-2016 [facility] SPECIFIED N EMERGENCY DISORDERS PHYS OF TEETH SUPPORT STRCT J020 STREPTOCOCC 01-18-[address] [facility] PHARYNGITIS SYSTEMS, INC B354 TINEA 04-23-2015 [facility] CORPOR[employer]istan SYSTEMS, INC 4019 UNSPECIFIED 01-03-2015 [facility] HYPERTENSIO HOSPITA N 18916 UNSPECIFIED 01-03-2015 [facility] 5259 UNSPECIFIED 01-03-2015 [facility] DISORDER N EMERGENCY TEETH&SUPPO SERV RTING STRUCTURES 95240 ALTERED 12-14-2014 [facility] STATUS [facility] 88636 GENERALIZED 11-17-2014 NEW ANXIETY [facility] DISORDER FAMILY PRACTICE 94354 UNSPECIFIED 08-01-2014 NEW VIRAL [facility] INFECTION MED CTR IN CCE & UNS SITE 20372 DEHYDRATION 08-01-2014 NEW [facility] 2768 HYPOPOTASSE 08-01-2014 NEW SAAD [facility] 5589 OTH&UNSPEC 07-30-2014 ST NONINFECTIO [facility] INTERIOR HORTICULTURIST GASTROENTER ST ITIS&COLITI S 5718 OTHER 07-30-2014 [facility] CHRONIC ASS[facility] NONALCOHOLI OF [facility] LIVER DISEASE 62534 NAUSEA WITH 07-30-2014 [facility] VOMITING [facility] 25879 DIARRHEA 07-30-2014 [facility] 35657 ABDOMINAL 07-30-2014 RADIOLOGY PAIN, ASSOCIATES UNSPECIFIED OF [facility] SITE V5869 LONG-TERM 07-30-2014 ST (CURRENT) [facility] USE OF MED CTR INTERIOR HORTICULTURIST OTHER ST MEDICATIONS 7291 UNSPECIFIED 04-14-2014 NEW MYALGIA [facility] MYOSITIS PRACTICE V7109 OBSERVATION 03-13-2014 [facility] SUSPECTED CARE MENTAL CONDITION 4659 ACUTE URIS 02-28-2014 NEW OF [facility] UNSPECIFIED FAMILY SITE PRACTICE 7862 COUGH 02-28-2014 [facility] PRACTICE 9221 CONTUSION 01-12-2014 NEW OF CHEST [facility] WALL MED CTR 9598 INJURY 01-12-2014 NEW OTH&UNSPEC [facility] OTH SPEC [facility] SITES INCL MULTIPLE 7089 UNSPECIFIED 11-20-2013 NEW URTICARIA [facility] 76805 HIDRADENITI 07-30-2013 NEW S [facility] PRIMARY CARE CL 4660 ACUTE 05-20-2013 NEW BRONCHITIS [facility] PRIMARY CARE CL 462 ACUTE 06-01-2012 NEW PHARYNGITIS [facility] CL 3671 MYOPIA 12-20-2011 [facility] IRF 3688 OTHER 12-19-2011 [facility] IRF SPECIFIED VISUAL DISTURBANCE S 38025 INSOMNIA 12-01-2011 PRE[facility] UNSPECIFIED CRY 89977 OTHER 12-01-2011 [facility] MALAISE AND CRY FATIGUE 90786 CHEST PAIN 12-01-2011 [facility] UNSPECIFIED CRY 4619 ACUTE 08-03-2011 NEW SINUSITIS, [facility] [place] [address] OBESITY, 01-22-2010 [facility] UNSPECIFIED HEALTH SYSTEMS, INC 4779 ALLERGIC 01-22-2010 [facility] RHINITIS HEALTH CAUSE SYSTEMS, UNSPECIFIED INC 7821 RASH AND 01-22-2010 [facility] OTHER HEALTH NONSPECIFIC SYSTEMS, SKIN INC ERUPTION 0088 INTESTINAL 01-19-2010 NEW INFECTION [facility] DUE TO MED CTR OTHER ORGANISM NEC 3814 NONSUPPRATV 09-18-2009 NEW OTITIS [facility] MEDIA NOT MEDICAL CTR SPEC RURAL [facility] 99676 OVERWEIGHT 07-21-2009 NEW [facility] 49511 UNSPECIFIED 07-21-2009 NEW [facility] CONJUNCTIVI MEDICAL CTR TIS [facility] 60476 UNSPECIFIED 05-22-2009 NEW SITE OF [facility] ANKLE [facility] SPRAIN AND STRAIN 00898 SPRAIN AND 05-22-2009 NEW STRAIN OF [facility] UNSPECIFIED MED CTR SITE OF FOOT E8859 FALL FROM 05-22-2009 NEW OTHER [facility] SLIPPING MED CTR TRIPPING OR STUMBLING 490 BRONCHITIS 02-26-2009 NEW NOT [facility] SPECIFIED MED CTR ACUTE OR CHRONIC 3829 UNSPECIFIED 02-12-2008 NEW OTITIS [facility] MEDIA [facility]ICAL CTR [facility] 76615 VOMITING 02-12-2008 NEW ALONE [facility] V202 ROUTINE 12-17-2007 NEW OR [facility] CHILD [facility]ICAL [facility] 7806 FEVER & OTH 06-25-2007 NEW [facility] PHYSIOLOGIC MEDICAL CTR [facility] S [facility] V720 EXAMINATION 06-01-2007 [facility] ACCT J03.90 Acute tonsillitis , unspecified K52.9 NONINFECTIV E GASTROENTER ITIS AND COLITIS, UNSPECIFIED N39.0 URINARY TRACT INFECTION, SITE NOT SPECIFIED R06.02 SHORTNESS OF BREATH R10.10 UPPER ABDOMINAL PAIN, UNSPECIFIED R10.9 UNSPECIFIED ABDOMINAL PAIN Medications Na ND Rx Da Fi Fi Am Da Di Ph RX Ph St me C No te ll ll ou ys ag ar # ys at rm s nt no ma ic us Or Da si cy ia de te s n re d FL 49 11 11 0. 1 00 WA Ac UZ 28 -0 -2 50 00 L- ti ON 10 1- 4- 0 07 MA ve E 41 20 20 51 RT QU 75 17 17 88 AD 0 53 PH AR 20 MA 17 CY -2 01 #5 8 91 SY RI NG E SE 65 10 11 30 30 00 CU Ac RT 86 -1 -1 .0 00 LL ti RA 20 6- 0- 00 01 ve LI 01 20 20 19 FA NE 30 17 17 52 NV 5 79 LY HC L PH 10 AR 0 MA MG CY TA BL ET NV 51 10 11 28 28 00 CU Ac CR 86 -1 -1 .0 00 LL ti OG 20 6- 0- 00 01 ve ES 01 20 20 22 FA TI 20 17 17 10 NV N 6 23 LY FE PH 1- AR 20 MA CY TA BL ET HY 16 10 11 30 [address] 72 -1 -1 .0 00 LL ti OC 90 6- 0- 00 01 ve HL 18 20 20 19 FA OR 31 17 17 52 NV OT 7 78 LY HI AZ PH ID AR E MA 25 CY MG TA B ME 55 10 11 30 30 00 CU Ac TO 11 -1 -1 .0 00 LL ti WY 10 6- 0- 00 01 ve OL 46 20 20 19 FA OL 60 17 17 52 NV 5 77 LY KEITH CC PH AR ER MA CY 25 MG TA B NV 51 09 10 28 28 00 CU Ac CR 86 -2 -2 .0 00 LL ti OG 20 1- 0- 00 01 ve ES 01 20 20 22 FA TI 20 17 17 10 NV N 6 23 LY FE PH 1- AR 20 MA CY TA BL ET HY 16 09 10 30 [address] 72 -1 -1 .0 00 LL ti OC 90 9- 3- 00 01 ve HL 18 20 20 19 FA OR 31 17 17 52 NV OT 7 78 LY HI AZ PH ID AR E MA 25 CY MG TA B ME 55 09 10 30 30 00 CU Ac TO 11 -1 -1 .0 00 LL ti WY 10 9- 3- 00 01 ve OL 46 20 20 19 FA OL 60 17 17 52 NV 5 77 LY KEITH CC PH AR ER MA CY 25 MG TA B SE 65 09 10 30 30 00 CU Ac RT 86 -1 -1 .0 00 LL ti RA 20 9- 3- 01 ve LI 01 20 20 19 FA NE 30 17 17 52 NV 5 79 LY HC L PH 10 AR 0 MA MG CY TA BL ET ME 55 08 09 30 30 00 CU Ac TO 11 -1 -1 .0 00 LL ti WY 10 7- 5- 00 01 ve OL 46 20 20 19 FA OL 60 17 17 52 NV 5 77 LY KEITH CC PH AR ER MA CY 25 MG TA B HY 16 08 09 30 [address] 72 -1 -1 .0 00 LL ti OC 90 7- 5- 00 01 ve HL 18 20 20 19 FA OR 31 17 17 52 NV OT 7 78 LY HI AZ PH ID AR E MA 25 CY MG TA B SE 65 08 09 30 30 00 CU Ac RT 86 -1 -1 .0 00 LL ti RA 20 7 5- 01 ve LI 01 20 20 19 FA NE 30 17 17 52 NV 5 79 LY HC L PH 10 AR 0 MA MG CY TA BL ET ME 55 07 08 30 30 00 CU Ac TO 11 -1 -1 .0 00 LL ti WY 10 4- 1- 01 ve OL 46 20 20 19 FA OL 60 17 17 52 NV 5 77 LY KEITH CC PH AR ER MA CY 25 MG TA B HY 16 07 08 30 [address] 72 -1 -1 .0 00 LL ti OC 90 4- 1- 00 01 ve HL 18 20 20 19 FA OR 31 17 17 52 NV OT 7 78 LY HI AZ PH ID AR E MA 25 CY MG TA B SE 65 07 08 30 30 00 CU Ac RT 86 -1 -1 .0 00 LL ti RA 20 4- 1- 00 01 ve LI 01 20 20 19 FA NE 30 17 17 52 NV 5 79 LY HC L PH 10 AR 0 MA MG CY TA BL ET ME 55 05 06 30 30 00 CU Ac TO 11 -2 -1 .0 00 LL ti WY 10 4- 6- 00 01 ve OL 46 20 20 19 FA OL 60 17 17 52 NV 5 77 LY KEITH CC PH AR ER MA CY 25 MG TA B HY 16 05 06 30 [address] 72 -2 -1 .0 00 LL ti OC 90 4- 6- 00 01 ve HL 18 20 20 19 FA OR 31 17 17 52 NV OT 7 78 LY HI AZ PH ID AR E MA 25 CY MG TA B SE 65 05 06 30 30 00 CU Ac RT 86 -2 -1 .0 00 LL ti RA 20 4- 6- 00 01 ve LI 01 20 20 19 FA NE 30 17 17 52 NV 5 79 LY HC L PH 10 AR 0 MA MG CY TA BL ET PA 68 05 06 30 [...] CY MG #5 TA 91 BL ET HY 16 04 05 30 [address] 72 -1 -1 .0 00 LL ti OC 90 3- 2- 00 01 ve HL 18 20 20 19 FA OR 31 17 17 52 NV OT 7 78 LY HI AZ PH ID AR E MA 25 CY MG TA B SE 65 04 05 30 30 00 CU Ac RT 86 -1 -1 .0 00 LL ti RA 20 3- 2- 00 01 ve LI 01 20 20 19 FA NE 30 17 17 52 NV 5 79 LY HC L PH 10 AR 0 MA MG CY TA BL ET ME 68 04 05 30 30 00 CU Ac TO 00 -1 -1 .0 00 LL ti WY 10 3- 2- 00 01 ve OL 12 20 20 19 FA OL 10 17 17 52 NV 3 77 LY KEITH CC PH AR ER MA CY 25 MG TA B SE 65 03 04 30 30 00 CU Ac RT 86 -1 -0 .0 00 LL ti RA 20 4- 7- 00 01 ve LI 01 20 20 16 FA NE 30 17 17 47 NV 5 91 LY HC L PH 10 AR 0 MA MG CY TA BL ET ME 68 03 04 30 30 00 CU Ac TO 00 -1 -0 .0 00 LL ti WY 10 4- 7- 00 01 ve OL 12 20 20 16 FA OL 10 17 17 47 NV 3 98 LY KEITH CC PH AR ER MA CY 25 MG TA B HY 00 03 04 30 [address] 17 -1 -0 .0 00 LL ti OC 22 4- 7- 00 01 ve HL 08 20 20 16 FA OR 38 17 17 47 NV OT 0 99 LY HI AZ PH ID AR E MA 25 CY MG TA B SE 65 02 03 30 30 00 CU Ac RT 86 -1 -1 .0 00 LL ti RA 20 5- 0- 00 01 ve LI 01 20 20 16 FA NE 30 17 17 47 NV 5 91 LY HC L PH 10 AR 0 MA MG CY TA BL ET ME 68 02 03 30 30 00 CU Ac TO 00 -1 -1 .0 00 LL ti WY 10 5- 0- 00 01 ve OL 12 20 20 16 FA OL 10 17 17 47 NV 3 98 LY KEITH CC PH AR ER MA CY 25 MG TA B HY 00 02 03 30 [address] 17 -1 -1 .0 00 LL ti OC 22 5- 0- 00 01 ve HL 08 20 20 16 FA OR 38 17 17 47 NV OT 0 99 LY HI AZ PH ID AR E MA 25 CY MG TA B ME 29 01 02 4. 1 00 CU Ac TR 30 -1 -1 00 00 LL ti ON 00 3- 0- 0 01 ve ID 22 20 20 17 FA AZ 70 17 17 83 NV OL 5 51 LY E 50 PH 0 AR MG MA CY TA BL ET SE 65 01 02 30 30 00 CU Ac RT 86 -1 -1 .0 00 LL ti RA 20 8- 0- 00 01 ve LI 01 20 20 16 FA NE 30 17 17 47 NV 5 91 LY HC L PH 10 AR 0 MA MG CY TA BL ET ME 68 01 02 30 30 00 CU Ac TO 00 -1 -1 .0 00 LL ti WY 10 8- 0- 00 01 ve OL 12 20 20 16 FA OL 10 17 17 47 NV 3 98 LY KEITH CC PH AR ER MA CY 25 MG TA B HY 00 01 02 30 [address] 17 -1 -1 .0 00 LL ti OC 22 8- 0- 00 01 ve HL 08 20 20 16 FA OR 38 17 17 47 NV OT 0 99 LY HI AZ PH ID AR E MA 25 CY MG TA B FL 00 01 02 2. 7 00 CU Ac UC 17 -0 -0 00 00 LL ti ON 25 9- 3- 0 01 ve AZ 41 20 20 17 FA OL 21 17 17 74 NV E 1 62 LY 15 0 PH MG AR MA TA CY BL ET BU 00 01 02 30 30 00 CU Ac SP 11 -0 -0 .0 00 LL ti IR 51 6- 3- 00 01 ve ON 69 20 20 17 FA E 20 17 17 71 NV HC 2 74 LY L 15 PH AR MG MA CY TA BL ET SE 65 12 01 30 30 00 CU Ac RT 86 -1 -0 .0 00 LL ti RA 20 4- 9- 00 01 ve LI 01 20 20 16 FA NE 30 16 17 47 NV 5 91 LY HC L PH 10 AR 0 MA MG CY TA BL ET ME 68 12 01 30 30 00 CU Ac TO 00 -1 -0 .0 00 LL ti WY 10 4- 9- 00 01 ve OL 12 20 20 16 FA OL 10 16 17 47 NV 3 98 LY KEITH CC PH AR ER MA CY 25 MG TA B HY 00 12 01 30 [address] 17 -1 -0 .0 00 LL ti OC 22 4- 9- 00 01 ve HL 08 20 20 16 FA OR 38 16 17 47 NV OT 0 99 LY HI AZ PH ID AR E MA 25 CY MG TA B WY 57 09 09 0 15 6 NO 79 WILBERT Ac OM 66 -1 -1 .0 RT 23 HN ti ET 40 4- 4- 00 H 64 SO ve GUAN 10 20 20 PA N ZI 88 10 10 RK LA NE 8 RR PH Y 25 AR C MA MG CY TA IN BL C ET DI 00 09 09 0 30 8 NO 79 WILBERT Ac PH 37 -1 -1 .0 RT 23 HN ti EN 80 4- 4- 00 H 63 SO ve OX 41 20 20 PA N YL 51 10 10 RK LA AT 0 RR E- PH Y AT AR C RO MA P CY 2. 5- IN 0. C 02 5 HY 00 07 07 0 30 30 NO [address] 60 -3 -3 .0 RT 62 LB ti OC 33 0- 0- 00 H 01 ER ve HL 85 20 20 PA T OR 53 10 10 RK DE OT 2 NI HI PH SE AZ AR F ID MA E CY 12 .5 IN C MG CP HY 00 05 05 0 30 30 [...] MA CY TA BL IN ET C 00 03 03 0 3. 7 [...] AD AR AM M D IN C 49 02 03 00 20 [...] bl PH e AR M IN C Results Labs Lab Lab Date Result Refere Interp Status Commen Order Detail nces retati t Range on Urinalysis by dipstick (04-06-2017 10:13) Urine 04-06-2 0.2 0.2 NEG complet urobili 017 L ed nogen 10:13 E.U./dL detecti on by test str Urine NEGATIV NEG complet nitrite 017 E ed 10:13 NEGATIV detecti E L on by test strip Urine NEGATIV NEG complet leukocy 017 E ed te 10:13 NEGATIV esteras E L e detecti on by au Urine 2 = 1.025 1.005-1 complet specifi 017 .030 ed c 10:13 gravity measure ment Urine 3 + NEG complet protein 017 mg/dL ed 10:13 measure ment by automat ed t Urine 2 = 5.5 5.0-8.5 complet pH 017 ed 10:13 Urine NEGATIV NEG complet ketones 017 E ed 10:13 NEGATIV detecti E L on by mg/dL automat ed ever Glucose = NEG complet ur 017 NEGATIV ed test 10:13 E strip Urine YELLOW YELLOW complet color 017 YELLOW ed 10:13 L Urine TRACE NEG complet blood 017 TRACE L ed detecti 10:13 on Urine NEGATIV NEG complet total 017 E ed bilirub 10:13 NEGATIV in E L detecti on by test Urine Clear CLEAR complet appeara 017 Clear L ed nce 10:13 determi nation Urinalysis with microscopy (02-12-2017 20:00) Urine 2 = OCC O complet leukocy 017 wbc/hpf [...] SQUARE METERS Comment: If this patient is -Burmese, then multiply the Comment: result by 1.210. [...] blood 19:36 platele t mean volume robbie Aitkin % = 3.5 % 1.7-9.3 complet 017 [...] blood 19:36 eosinop hil count Baso % = 0.2 % 0.1-2.0 complet 017 ed 19:36 Automat = 0.0 0-0.2 complet ed 017 K/MM3 ed blood 19:36 basophi l count (count/ vo Encounters Encounter Start End Date Code Location Performer Type Date [facility] - 7 7 [facility] - 7 7 [facility] - 7 7 [facility] - 7 7 [facility] - 7 7 [facility] - 6 [address] [facility] [place] [id number] [address] [facility] NEW - 5 5 [facility] - 5 5 [facility] NEW - 4 4 [facility] - 4 4 [facility] - 0 0 [facility] - 0 0 [facility] NEW - 9 9 [facility]
--- OUTSIDE RECORDS SUMMARY | 2017-04-13 12:50 | External Medical Summary Rpt | CCD ---
Author Author , FLORENCIA DON Address Unknown Phone [email or web address] Care Team Providers Care Colorist Dyer Name Role Phone [facility], GURMEET Unavailable Unavailable IRF ADELR, ADLER Unavailable Unavailable [facility], Unavailable Unavailable [facility] PRE[facility] CRY, Unavailable Unavailable [facility] CR[facility] [place] JUL[facility], Unavailable Unavailable [facility] Unavailable Unavailable [facility], [facility], Unavailable Unavailable [facility] Unavailable Unavailable INC, [facility] Unavailable Unavailable HOSPITAL P, [facility] Unavailable Unavailable CARE, IN, [facility], [place] [facility], Unavailable Unavailable [facility] Unavailable Unavailable [facility] MARTINA MACK Unavailable Unavailable [facility] Unavailable Unavailable PRACTICE, [facility], Unavailable Unavailable [facility] Unavailable Unavailable CARE CL, [facility] CL [facility], Unavailable Unavailable [facility] Unavailable Unavailable INC, [facility] Unavailable Unavailable CARE, [facility] CARE [facility] Unavailable [facility]available [facility], [facility]ANS[facility] Unavailable Unavailable [facility], [facility], [facility] Unavailable Unavailable OF NOT, [facility] SCIF[facility], [facility] Unavailable Unavailable [facility], [facility] Unavailable Unavailable FISH CLEANER ST, [facility] Unavailable [facility], Unavailable Unavailable INC, [employer] INC Purpose Continuity of Care Document - [...] [facility] I10 ESSENTIAL 09-02-2016 [facility] HYPERT[facility]O INC N N3000 [...] 08-17-2016 [facility] BREATH [facility], [facility] [id number] OTHER LONG 08-17-2016 [facility] P DRUG THERAPY J0390 ACUTE 06-14-2016 [facility]IA UNSPECIFIED E669 OBESITY 05-30-2016 [facility] UNSPECIFIED [employer] N926 IRREGULAR 05-30-2016 [facility] MENSTRUATIO [employer] N UNSPECIFIED A599 TRICHOMONIA 05-20-2016 [facility] UNSPECIFIED [place] [id number] ENCOUNTER 05-16-2016 [facility] LICENSED PRACTICAL NURSE CLINIC NURSE EXAM [employer] GENERAL RTN W/O ABNORMAL FIND Z124 ENCOUNTER 05-16-2016 [facility] OTHER [employer] SCREENING MALIG NEOPLASM CERVIX K029 DENTAL 03-08-2016 [facility] UNSPECIFIED HOSPITA K0889 OTHER 03-08-2016 [facility] SPECIFIED N EMERGENCY DISORDERS PHYS OF TEETH SUPPORT STRCT J020 STREPTOCOCC 01-18-2016 [facility] PHARYNGITIS SYSTEMS, INC B354 TINEA 04-23-2015 [facility] - [facility] Reviews & Information SYSTEM[facility], INC 4019 UNSPECIFIED 01-03-2015 [facility] HYPERTENSIO HOSPITA N 05798 UNSPECIFIED 01-03-2015 [facility] 5259 UNSPECIFIED 01-03-2015 [facility] DISORDER N EMERGENCY TEETH&SUPPO SERV RTING STRUCTURES 41722 ALTERED 12-14-2014 [facility] STATUS OF [facility] 55059 GENERALIZED 11-17-2014 NEW ANXIETY [facility] DISORDER FAMILY PRACTICE 41620 UNSPECIFIED 08-01-2014 NEW VIRAL [facility] INFECTION MED CTR IN CCE & UNS SITE 14906 DEHYDRATION 08-01-2014 [facility] 2768 HYPOPOTASSE 08-01-2014 NEW [facility] 5589 OTH&UNSPEC 07-30-2014 ST NONINFECTIO [facility] FISH CLEANER GASTROENTER ST ITIS&COLITI S 5718 OTHER 07-30-2014 [facility] CHRONIC [facility] NONALCOHOLI OF [facility] LIVER DISEASE 51299 NAUSEA WITH 07-30-2014 [facility] VOMITING ASSOCIATES OF [facility] 52404 DIARRHEA 07-30-2014 [facility] OF [facility] 88344 ABDOMINAL 07-30-2014 RADI[facility] PAIN, ASSOCIATES UNSPECIFIED OF [facility] SITE V5869 LONG-TERM 07-30-2014 ST (CURRENT) [facility] USE OF MED CTR FISH CLEANER OTHER ST MEDICATIONS 7291 UNSPECIFIED 04-14-2014 NEW MYALGIA [facility] MYOSITIS PRACTICE V7109 OBSERVATION 03-13-2014 [facility] SUSPECTED CARE MENTAL CONDITION 4659 ACUTE URIS 02-28-2014 NEW OF [facility] UNSPECIFIED FAMILY SITE PRACTICE 7862 COUGH 02-28-2014 [facility] 9221 CONTUSION 01-12-2014 NEW OF CHEST [facility] WALL MED CTR 9598 INJURY 01-12-2014 NEW OTH&UNSPEC [facility] OTH SPEC [facility] CTR SITES INCL MULTIPLE 7089 UNSPECIFIED 11-20-2013 NEW URTICARIA [facility] 08627 HIDRADENITI 07-30-2013 [facility] PRIMARY CARE CL 4660 ACUTE 05-20-2013 NEW BRONCHITIS [facility] PRIMARY CARE CL 462 ACUTE 06-01-2012 NEW PHARYNGITIS [facility] CL 3671 MYOPIA 12-20-2011 [facility] 3688 OTHER 12-19-2011 [facility] SPECIFIED VISUAL DISTURBANCE S 29193 INSOMNIA 12-01-2011 [facility] UNSPECIFIED CRY 39269 OTHER 12-01-2011 [facility] MALAISE AND CRY FATIGUE 23717 CHEST PAIN 12-01-2011 [facility] UNSPECIFIED CRY 4619 ACUTE 08-03-2011 NEW SINUSITIS, [facility] UNSPECIFIED PRIMARY CARE CL 74253 OBESITY, 01-22-2010 [facility] UNSPECIFIED [facility], INC 4779 ALLERGIC 01-22-2010 [facility] RHINITIS HEALTH CAUSE SYSTEMS, UNSPECIFIED INC 7821 RASH AND 01-22-2010 [facility] OTHER HEALTH NONSPECIFIC SYSTEMS, SKIN INC ERUPTION 0088 INTESTINAL 01-19-2010 NEW INFECTION [facility] DUE TO MED CTR OTHER ORGANISM NEC 3814 NONSUPPRATV 09-18-2009 NEW OTITIS [facility] MEDIA NOT MEDICAL CTR SPEC [facility] 64575 OVERWEIGHT 07-21-2009 [facility] 29547 UNSPECIFIED 07-21-2009 NEW [facility] CONJUNCTIVI MEDICAL CTR TIS [facility] 79851 UNSPECIFIED 05-22-2009 NEW SITE OF [facility] ANKLE MED CTR SPRAIN AND STRAIN 10383 SPRAIN AND 05-22-2009 NEW STRAIN OF [facility] UNSPECIFIED MED CTR SITE OF FOOT E8859 FALL FROM 05-22-2009 NEW OTHER [facility] SLIPPING MED CTR TRIPPING OR STUMBLING 490 BRONCHITIS 02-26-2009 NEW NOT [facility] SPECIFIED MED CTR ACUTE OR CHRONIC 3829 UNSPECIFIED 02-12-2008 NEW OTITIS [facility] MEDIA [facility]ICAL CTR [facility] 22281 VOMITING 02-12-2008 NEW ALONE [facility] V202 ROUTINE 12-17-2007 NEW OR [facility] CHILD [facility] 7806 FEVER & OTH 06-25-2007 [facility] PHYSIOLOGIC MEDICAL CTR [facility] S TEMP REG CLINIC V720 EXAMINATION 06-01-2007 [...] 19 FA NE 30 17 17 52 IL 5 79 LY HC L PH 10 AR 0 MA MG CY TA BL ET IL 51 10 11 28 28 00 CU Ac CR 86 -1 -1 .0 00 LL ti OG 20 6- 0- 00 01 ve ES 01 20 20 22 FA TI 20 17 17 10 IL N 6 23 LY FE PH 1- AR 20 MA CY TA BL ET HY 16 10 11 30 [address] 72 -1 -1 .0 00 LL ti OC 90 6- 0- 00 01 ve HL 18 20 20 19 FA OR 31 17 17 52 IL OT 7 78 LY HI AZ PH ID AR E MA 25 CY MG TA B ME 55 10 11 30 30 00 CU Ac TO 11 -1 -1 .0 00 LL ti KS 10 6- 0- 00 01 ve OL 46 20 20 19 FA OL 60 17 17 52 IL 5 77 LY KEITH CC PH AR ER MA CY 25 MG TA B IL 51 09 10 28 28 00 CU Ac CR 86 -2 -2 .0 00 LL ti OG 20 1- 0- 00 01 ve ES 01 20 20 22 FA TI 20 17 17 10 IL N 6 23 LY FE PH 1- AR 20 MA CY TA BL ET HY 16 09 10 30 [address] 72 -1 -1 .0 00 LL ti OC 90 9- 3- 00 01 ve HL 18 20 20 19 FA OR 31 17 17 52 IL OT 7 78 LY HI AZ PH ID AR E MA 25 CY MG TA B ME 55 09 10 30 30 00 CU Ac TO 11 -1 -1 .0 00 LL ti KS 10 9- 3- 00 01 ve OL 46 20 20 19 FA OL 60 17 17 52 IL 5 77 LY KEITH CC PH AR ER MA CY 25 MG TA B SE 65 09 10 30 30 00 CU Ac RT 86 -1 -1 .0 00 LL ti RA 20 9- 3- 01 ve LI 01 20 20 19 FA NE 30 17 17 52 IL 5 79 LY HC L PH 10 AR 0 MA MG CY TA BL ET ME 55 08 09 30 30 00 CU Ac TO 11 -1 -1 .0 00 LL ti KS 10 7- 5- 00 01 ve OL 46 20 20 19 FA OL 60 17 17 52 IL 5 77 LY KEITH CC PH AR ER MA CY 25 MG TA B HY 16 08 09 30 [address] 72 -1 -1 .0 00 LL ti OC 90 7- 5- 00 01 ve HL 18 20 20 19 FA OR 31 17 17 52 IL OT 7 78 LY HI AZ PH ID AR E MA 25 CY MG TA B SE 65 08 09 30 30 00 CU Ac RT 86 -1 -1 .0 00 LL ti RA 20 7 5- 01 ve LI 01 20 20 19 FA NE 30 17 17 52 IL 5 79 LY HC L PH 10 AR 0 MA MG CY TA BL ET ME 55 07 08 30 30 00 CU Ac TO 11 -1 -1 .0 00 LL ti KS 10 4- 1- 01 ve OL 46 20 20 19 FA OL 60 17 17 52 IL 5 77 LY KEITH CC PH AR ER MA CY 25 MG TA B HY 16 07 08 30 [address] 72 -1 -1 .0 00 LL ti OC 90 4- 1- 00 01 ve HL 18 20 20 19 FA OR 31 17 17 52 IL OT 7 78 LY HI AZ PH ID AR E MA 25 CY MG TA B SE 65 07 08 30 30 00 CU Ac RT 86 -1 -1 .0 00 LL ti RA 20 4- 1- 00 01 ve LI 01 20 20 19 FA NE 30 17 17 52 IL 5 79 LY HC L PH 10 AR 0 MA MG CY TA BL ET ME 55 05 06 30 30 00 CU Ac TO 11 -2 -1 .0 00 LL ti KS 10 4- 6- 00 01 ve OL 46 20 20 19 FA OL 60 17 17 52 IL 5 77 LY KEITH CC PH AR ER MA CY 25 MG TA B HY 16 05 06 30 [address] 72 -2 -1 .0 00 LL ti OC 90 4- 6- 00 01 ve HL 18 20 20 19 FA OR 31 17 17 52 IL OT 7 78 LY HI AZ PH ID AR E MA 25 CY MG TA B SE 65 05 06 30 30 00 CU Ac RT 86 -2 -1 .0 00 LL ti RA 20 4- 6- 00 01 ve LI 01 20 20 19 FA NE 30 17 17 52 IL 5 79 LY HC L PH 10 [...] 04 05 6. 3 00 WA Ac KS 14 -2 -2 00 00 L- ti [...] 19 FA OR 31 17 17 52 IL OT 7 78 LY HI AZ PH ID AR E MA 25 CY MG TA B SE 65 04 05 30 30 00 CU Ac RT 86 -1 -1 .0 00 LL ti RA 20 3- 2- 00 01 ve LI 01 20 20 19 FA NE 30 17 17 52 IL 5 79 LY HC L PH 10 AR 0 MA MG CY TA BL ET ME 68 04 05 30 30 00 CU Ac TO 00 -1 -1 .0 00 LL ti KS 10 3- 2- 00 01 ve OL 12 20 20 19 FA OL 10 17 17 52 IL 3 77 LY KEITH CC PH AR ER MA CY 25 MG TA B SE 65 03 04 30 30 00 CU Ac RT 86 -1 -0 .0 00 LL ti RA 20 4- 7- 00 01 ve LI 01 20 20 16 FA NE 30 17 17 47 IL 5 91 LY HC L PH 10 AR 0 MA MG CY TA BL ET ME 68 03 04 30 30 00 CU Ac TO 00 -1 -0 .0 00 LL ti KS 10 4- 7- 00 01 ve OL 12 20 20 16 FA OL 10 17 17 47 IL 3 98 LY KEITH CC PH AR ER MA CY 25 MG TA B HY 00 03 04 30 [address] 17 -1 -0 .0 00 LL ti OC 22 4- 7- 00 01 ve HL 08 20 20 16 FA OR 38 17 17 47 IL OT 0 99 LY HI AZ PH ID AR E MA 25 CY MG TA B SE 65 02 03 30 30 00 CU Ac RT 86 -1 -1 .0 00 LL ti RA 20 5- 0- 00 01 ve LI 01 20 20 16 FA NE 30 17 17 47 IL 5 91 LY HC L PH 10 AR 0 MA MG CY TA BL ET ME 68 02 03 30 30 00 CU Ac TO 00 -1 -1 .0 00 LL ti KS 10 5- 0- 00 01 ve OL 12 20 20 16 FA OL 10 17 17 47 IL 3 98 LY KEITH CC PH AR ER MA CY 25 MG TA B HY 00 02 03 30 [address] 17 -1 -1 .0 00 LL ti OC 22 5- 0- 00 01 ve HL 08 20 20 16 FA OR 38 17 17 47 IL OT 0 99 LY HI AZ PH ID AR E MA 25 CY MG TA B ME 29 01 02 4. 1 00 CU Ac TR 30 -1 -1 00 00 LL ti ON 00 3- 0- 0 01 ve ID 22 20 20 17 FA AZ 70 17 17 83 IL OL 5 51 LY E 50 PH 0 AR MG MA CY TA BL ET SE 65 01 02 30 30 00 CU Ac RT 86 -1 -1 .0 00 LL ti RA 20 8- 0- 00 01 ve LI 01 20 20 16 FA NE 30 17 17 47 IL 5 91 LY HC L PH 10 AR 0 MA MG CY TA BL ET ME 68 01 02 30 30 00 CU Ac TO 00 -1 -1 .0 00 LL ti KS 10 8- 0- 00 01 ve OL 12 20 20 16 FA OL 10 17 17 47 IL 3 98 LY KEITH CC PH AR ER MA CY 25 MG TA B HY 00 01 02 30 [address] 17 -1 -1 .0 00 LL ti OC 22 8- 0- 00 01 ve HL 08 20 20 16 FA OR 38 17 17 47 IL OT 0 99 LY HI AZ PH ID AR E MA 25 CY MG TA B FL 00 01 02 2. 7 00 CU Ac UC 17 -0 -0 00 00 LL ti ON 25 9- 3- 0 01 ve AZ 41 20 20 17 FA OL 21 17 17 74 IL E 1 62 LY 15 0 PH MG AR MA TA CY BL ET BU 00 01 02 30 30 00 CU Ac SP 11 -0 -0 .0 00 LL ti IR 51 6- 3- 00 01 ve ON 69 20 20 17 FA E 20 17 17 71 IL HC 2 74 LY L 15 PH AR MG MA CY TA BL ET SE 65 12 01 30 30 00 CU Ac RT 86 -1 -0 .0 00 LL ti RA 20 4- 9- 00 01 ve LI 01 20 20 16 FA NE 30 16 17 47 IL 5 91 LY HC L PH 10 AR 0 MA MG CY TA BL ET ME 68 12 01 30 30 00 CU Ac TO 00 -1 -0 .0 00 LL ti KS 10 4- 9- 00 01 ve OL 12 20 20 16 FA OL 10 16 17 47 IL 3 98 LY KEITH CC PH AR ER MA CY 25 MG TA B HY 00 12 01 30 [address] 17 -1 -0 .0 00 LL ti OC 22 4- 9- 00 01 ve HL 08 20 20 16 FA OR 38 16 17 47 IL OT 0 99 LY HI AZ PH ID AR E MA 25 CY MG TA B KS 57 09 09 0 15 6 NO [...] SQUARE METERS Comment: If this patient is -[place], then multiply the Comment: result by 1.210. [...] blood 19:36 platele t mean volume robbie [place] % = 3.5 % 1.7-9.3 complet 017 [...] End Date Code Location Performer Type Date [facility] - 7 7 [facility] - 7 7 [facility] - 7 7 [facility] - 7 7 [facility] - 6 6 [facility] [place] [id number] [address] [facility] - 5 5 [facility] - 5 5 [facility] NEW - 4 4 [facility] NEW - 4 4 [facility] NEW - 0 0 [facility] NEW - 0 0 [facility] NEW - 9 9 [facility]
--- OUTSIDE RECORDS SUMMARY | 2017-04-13 12:53 | External Medical Summary Rpt | CCD ---
Author Author , FLORENCIA TORRESASHLEE Address Unknown Phone [email or web address] Care Team Providers Care Service Captain Name Role Phone GURMEET IRF, GURMEET Unavailable Unavailable IRF ADLER, ADLER Unavailable Unavailable [facility], Unavailable Unavailable [facility] PREMA CRY, Unavailable Unavailable PREMA CRY GEOR[place]NA JULIAN, Unavailable Unavailable [place]NA JULIAN [facility] Unavailable Unavailable HOSPITA, [facility], Unavailable Unavailable [facility] Unavailable Unavailable INC, [facility] Unavailable Unavailable HOSPITAL P, [facility] P [facility] Unavailable Unavailable CARE, [place], [facility], [place] EDGAR STEPHENS, Unavailable Unavailable EDGAR STEPHENS [facility] Unavailable Unavailable [facility] MARTINA MACK Unavailable Unavailable [facility] Unavailable Unavailable PRACTICE, [facility], Unavailable Unavailable [facility] Unavailable Unavailable CARE CL, [facility] CL [facility], Unavailable Unavailable [facility] Unavailable Unavailable INC, [facility] Unavailable Unavailable CARE, [facility] CARE [facility] Unavailable Unavailable [facility], [facility] PHYSICIANS, Unavailable Unavailable [facility], [facility], [facility] Unavailable Unavailable OF NOT, [facility] NOT SCIFRES, [facility] Unavailable Unavailable [facility] Unavailable Unavailable [facility], [facility] Unavailable Unavailable IT INFRASTRUCTURE SPECIALIST ST, [facility] IT INFRASTRUCTURE SPECIALIST [facility] Unavailable Unavailable SADI, [facility] [employer], Unavailable Unavailable INC, [employer] Purpose Continuity of Care Document - 06-01-2007 through 2016 Problems Code Diagnosis DOS Provider Status Z136 ENCOUNTER 01-26-2017 [facility] PO[facility] FOR [...] N3000 ACUTE 09-02-2016 [facility] CYSTITIS [facility], WITHOUT PLL HEMATURIA N390 URINARY 09-02-2016 [facility] TRACT PHYSIC[facility]ANS, INFECTION [facility] SITE NOT SPECIFIED R112 NAUSEA WITH 09-02-2016 [facility] VOMITING PHYSICIANS, UNSPECIFIED [facility] J209 ACUTE 08-23-2016 [facility] UNSPECIFIED INC K529 NONINFECTIV 08-17-2016 [facility] E PHYSICIANS, GASTROENTER [facility] ITIS & COLITIS UNS R0602 SHORTNESS 08-17-2016 [facility] OF BREATH PHYSICIANS, [facility] H07664 OTHER LONG 08-17-2016 [facility] P DRUG THERAPY J0390 ACUTE 06-14-2016 [facility]. TONSILLITIS [facility]IA UNSPECIFIED E669 OBESITY 05-30-2016 LAB[facility] OF UNSPECIFIED [employer] N926 IRREGULAR 05-30-2016 [facility] MENSTRUATIO [employer] 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 GENERAL RTN W/O ABNORMAL FIND Z124 ENCOUNTER 05-16-2016 LAB[facility] OF OTHER [employer]. SCREENING MALIG NEOPLASM CERVIX K029 DENTAL 03-08-2016 [facility] UNSPECIFIED HOSPITA K0889 OTHER 03-08-2016 [facility] SPECIFIED N EMERGENCY DISORDERS PHYS OF TEETH SUPPORT STRCT J020 STREPTOCOCC 01-18-2016 [facility] CO [employer]IS SYSTEM[employer], INC B354 TINEA 04-23-2015 [facility] [employer], INC 4019 UNSPECIFIED 01-03-2015 [facility] [place] N 8[address]79 UNSPECIFIED 01-03-2015 [facility] 5259 UNSPECIFIED 01-03-2015 [facility] DISORDER N EMERGENCY TEETH&SUPPO SERV RTING STRUCTURES 54133 ALTERED 12-14-2014 [facility] STATUS OF [facility] 11663 GENERALIZED 11-17-2014 NEW ANXIETY [facility] DISORDER FAMILY PRACTICE 40725 UNSPECIFIED 08-01-2014 NEW VIRAL [facility] INFECTION MED CTR IN CCE & UNS SITE 07130 DEHYDRATION 08-01-2014 [facility] 2768 HYPOPOTASSE 08-01-2014 NEW SAAD [facility] 5589 OTH&UNSPEC 07-30-2014 ST NONINFECTIO [facility] IT INFRASTRUCTURE SPECIALIST GASTROENTER ST ITIS&COLITI S 5718 OTHER 07-30-2014 RADIOLOGY CHRONIC ASSOCIATES NONALCOHOLI OF [facility] C LIVER DISEASE 78007 NAUSEA WITH 07-30-2014 RADIOLOGY VOMITING ASSOCIATES OF [facility] 18371 DIARRHEA 07-30-2014 [facility] ASS[facility] OF [facility] 78664 ABDOMINAL 07-30-2014 RADIOLOGY PAIN, ASSOCIATES UNSPECIFIED OF [facility] SITE V5869 LONG-TERM 07-30-2014 ST (CURRENT) [facility] USE OF MED CTR IT INFRASTRUCTURE SPECIALIST OTHER ST MEDICATIONS 7291 UNSPECIFIED 04-14-2014 NEW MYALGIA [facility] MYOSITIS PRACTICE V7109 OBSERVATION 03-13-2014 [facility] SUSPECTED CARE MENTAL CONDITION 4659 ACUTE URIS 02-28-2014 NEW OF [facility] UNSPECIFIED FAMILY SITE PRACTICE 7862 COUGH 02-28-2014 [facility] FAMILY PRACTICE 9221 CONTUSION 01-12-2014 NEW OF CHEST [facility] WALL MED CTR 9598 INJURY 01-12-2014 NEW OTH&UNSPEC [facility] OT SPEC MED CTR SITES INCL MULTIPLE 7089 UNSPECIFIED 11-20-2013 NEW URTICARIA [facility] 69860 HIDRADENITI 07-30-2013 NEW S [facility] PRIMARY CARE CL 4660 ACUTE 05-20-2013 NEW BRONCHITIS [facility] PRIMARY CARE CL 462 ACUTE 06-01-2012 NEW PHARYNGITIS [facility] PRIMARY CARE CL 3671 MYOPIA 12-20-2011 [facility] IRF 3688 OTHER 12-19-2011 [facility]ET IRF SPECIFIED VISUAL DISTURBANCE S 09522 INSOMNIA 12-01-2011 PRMEA UNSPECIFIED CRY 78627 OTHER 12-01-2011 PREMA MALAISE AND CRY FATIGUE 53319 CHEST PAIN 12-01-2011 PREMA UNSPECIFIED CRY 4619 ACUTE 08-03-2011 NEW SINUSITIS, [facility] UNSPECIFIED PRIMARY CARE CL 55526 OBESITY, 01-22-2010 [facility] UNSPECIFIED [facility], INC 4779 ALLERGIC 01-22-2010 [facility] RHINITIS HEALTH CAUSE SYSTEMS, UNSPECIFIED INC 7821 RASH AND 01-22-2010 [facility] OTHER HEALTH NONSPECIFIC SYSTEMS, SKIN INC ERUPTION 0088 INTESTINAL 01-19-2010 NEW INFECTION [facility] DUE TO MED CTR OTHER ORGANISM NEC 3814 NONSUPPRATV 09-18-2009 NEW OTITIS [facility] MEDIA NOT MEDICAL CTR SPEC RURAL [facility] 98451 OVERWEIGHT 07-21-2009 NEW [facility] MEDICAL CTR [facility] 58738 UNSPECIFIED 07-21-2009 NEW [facility] CONJUNCTIVI MEDICAL CTR TIS [facility] 97404 UNSPECIFIED 05-22-2009 NEW SITE OF [facility] ANKLE MED CTR SPRAIN AND STRAIN 09454 SPRAIN AND 05-22-2009 NEW STRAIN OF [facility] UNSPECIFIED MED CTR SITE OF FOOT E8859 FALL FROM 05-22-2009 NEW OTHER [facility] SLIPPING MED CTR TRIPPING OR STUMBLING 490 BRONCHITIS 02-26-2009 NEW NOT [facility] SPECIFIED MED CTR ACUTE OR CHRONIC 3829 UNSPECIFIED 02-12-2008 NEW OTITIS [facility] MEDIA MEDICAL CTR [facility] 26615 VOMITING 02-12-2008 NEW ALONE [facility] MEDICAL [facility] V202 ROUTINE 12-17-2007 NEW INFANT OR [facility] CHILD MEDICAL [facility] 7806 FEVER & OTH 06-25-2007 [facility] PHYSIOLOGIC MEDICAL CTR [facility] V720 EXAMINATION 06-01-2007 DHS/CO [...] #5 8 91 SY RI NG E HY 16 10 11 [address] 72 -1 -1 .0 00 LL ti OC 90 6- 0- 00 01 ve HL 18 20 20 19 FA OR 31 17 17 52 GA OT 7 78 LY HI AZ PH ID AR E MA 25 CY MG TA B ME 55 10 11 30 30 00 CU Ac TO 11 -1 -1 .0 00 LL ti [place] 10 6- 0- 00 01 ve OL 46 20 20 19 FA OL 60 17 17 52 GA 5 77 LY KEITH CC PH AR ER MA CY 25 MG TA B SE 65 10 11 30 30 00 CU Ac RT 86 -1 -1 .0 00 LL ti RA 20 6- 0- 00 01 ve LI 01 20 20 19 FA NE 30 17 17 52 GA 5 79 LY HC L PH 10 AR 0 MA MG CY TA BL ET GA 51 10 11 28 28 00 CU Ac CR 86 -1 -1 .0 00 LL ti OG 20 6- 0- 00 01 ve ES 01 20 20 22 FA TI 20 17 17 10 GA N 6 23 LY FE PH 1- AR 20 MA CY TA BL ET GA 51 09 10 28 28 00 CU Ac CR 86 -2 -2 .0 00 LL ti OG 20 1- 0- 00 01 ve ES 01 20 20 22 FA TI 20 17 17 10 GA N 6 23 LY FE PH 1- AR 20 MA CY TA BL ET HY 16 09 10 30 [address] 72 -1 -1 .0 00 LL ti OC 90 9- 3- 00 01 ve HL 18 20 20 19 FA OR 31 17 17 52 GA OT 7 78 LY HI AZ PH ID AR E MA 25 CY MG TA B ME 55 09 10 30 30 00 CU Ac TO 11 -1 -1 .0 00 LL ti NY 10 9- 3- 00 01 ve OL 46 20 20 19 FA OL 60 17 17 52 GA 5 77 LY KEITH CC PH AR ER MA CY 25 MG TA B SE 65 09 10 30 30 00 CU Ac RT 86 -1 -1 .0 00 LL ti RA 20 9- 3- 00 01 ve LI 01 20 20 19 FA NE 30 17 17 52 GA 5 79 LY HC L PH 10 AR 0 MA MG CY TA BL ET ME 55 08 09 30 30 00 CU Ac TO 11 -1 -1 .0 00 LL ti NY 10 7- 5- 00 01 ve OL 46 20 20 19 FA OL 60 17 17 52 GA 5 77 LY KEITH CC PH AR ER MA CY 25 MG TA B HY 16 08 09 30 [address] 72 -1 -1 .0 00 LL ti OC 90 7- 5- 00 01 ve HL 18 20 20 19 FA OR 31 17 17 52 GA OT 7 78 LY HI AZ PH ID AR E MA 25 CY MG TA B SE 65 08 09 30 30 00 CU Ac RT 86 -1 -1 .0 00 LL ti RA 20 7- 5- 00 01 ve LI 01 20 20 19 FA NE 30 17 17 52 GA 5 79 LY HC L PH 10 AR 0 MA MG CY TA BL ET ME 55 07 08 30 30 00 CU Ac TO 11 -1 -1 .0 00 LL ti NY 10 4- 1- 00 01 ve OL 46 20 20 19 FA OL 60 17 17 52 GA 5 77 LY KEITH CC PH AR ER MA CY 25 MG TA B HY 16 07 08 30 [address] 72 -1 -1 .0 00 LL ti OC 90 4- 1- 00 01 ve HL 18 20 20 19 FA OR 31 17 17 52 GA OT 7 78 LY HI AZ PH ID AR E MA 25 CY MG TA B SE 65 07 08 30 30 00 CU Ac RT 86 -1 -1 .0 00 LL ti RA 20 4- 1- 00 01 ve LI 01 20 20 19 FA NE 30 17 17 52 GA 5 79 LY HC L PH 10 AR 0 MA MG CY TA BL ET ME 55 05 06 30 30 00 CU Ac TO 11 -2 -1 .0 00 LL ti NY 10 4- 6- 00 01 ve OL 46 20 20 19 FA OL 60 17 17 52 GA 5 77 LY KEITH CC PH AR ER MA CY 25 MG TA B HY 16 05 06 30 [address] 72 -2 -1 .0 00 LL ti OC 90 4- 6- 00 01 ve HL 18 20 20 19 FA OR 31 17 17 52 GA OT 7 78 LY HI AZ PH ID AR E MA 25 CY MG TA B SE 65 05 06 30 30 00 CU Ac RT 86 -2 -1 .0 00 LL ti RA 20 4- 6- 00 01 ve LI 01 20 20 19 FA NE 30 17 17 52 GA 5 79 LY HC L PH 10 [...] 04 05 6. 3 00 WA Ac NY 14 -2 -2 00 00 L- ti [...] 00 -1 -1 .0 00 LL ti NY 10 3- 2- 00 01 ve OL 12 20 20 19 FA OL 10 17 17 52 GA 3 77 LY KEITH CC PH AR ER MA CY 25 MG TA B HY 16 04 05 30 [address] 72 -1 -1 .0 00 LL ti OC 90 3- 2- 00 01 ve HL 18 20 20 19 FA OR 31 17 17 52 GA OT 7 78 LY HI AZ PH ID AR E MA 25 CY MG TA B SE 65 04 05 30 30 00 CU Ac RT 86 -1 -1 .0 00 LL ti RA 20 3- 2- 00 01 ve LI 01 20 20 19 FA NE 30 17 17 52 GA 5 79 LY HC L PH 10 AR 0 MA MG CY TA BL ET SE 65 03 04 30 30 00 CU Ac RT 86 -1 -0 .0 00 LL ti RA 20 4- 7- 00 01 ve LI 01 20 20 16 FA NE 30 17 17 47 GA 5 91 LY HC L PH 10 AR 0 MA MG CY TA BL ET ME 68 03 04 30 30 00 CU Ac TO 00 -1 -0 .0 00 LL ti NY 10 4- 7- 00 01 ve OL 12 20 20 16 FA OL 10 17 17 47 GA 3 98 LY KEITH CC PH AR ER MA CY 25 MG TA B HY 00 03 04 30 [address] 17 -1 -0 .0 00 LL ti OC 22 4- 7- 00 01 ve HL 08 20 20 16 FA OR 38 17 17 47 GA OT 0 99 LY HI AZ PH ID AR E MA 25 CY MG TA B SE 65 02 03 30 30 00 CU Ac RT 86 -1 -1 .0 00 LL ti RA 20 5- 0- 00 01 ve LI 01 20 20 16 FA NE 30 17 17 47 GA 5 91 LY HC L PH 10 AR 0 MA MG CY TA BL ET ME 68 02 03 30 30 00 CU Ac TO 00 -1 -1 .0 00 LL ti NY 10 5- 0- 00 01 ve OL 12 20 20 16 FA OL 10 17 17 47 GA 3 98 LY KEITH CC PH AR ER MA CY 25 MG TA B HY 00 02 03 30 [address] 17 -1 -1 .0 00 LL ti OC 22 5- 0- 00 01 ve HL 08 20 20 16 FA OR 38 17 17 47 GA OT 0 99 LY HI AZ PH ID AR E MA 25 CY MG TA B SE 65 01 02 30 30 00 CU Ac RT 86 -1 -1 .0 00 LL ti RA 20 8- 0- 00 01 ve LI 01 20 20 16 FA NE 30 17 17 47 GA 5 91 LY HC L PH 10 AR 0 MA MG CY TA BL ET ME 68 01 02 30 30 00 CU Ac TO 00 -1 -1 .0 00 LL ti NY 10 8- 0- 00 01 ve OL 12 20 20 16 FA OL 10 17 17 47 GA 3 98 LY KEITH CC PH AR ER MA CY 25 MG TA B HY 00 01 02 30 [address] 17 -1 -1 .0 00 LL ti OC 22 8- 0- 00 01 ve HL 08 20 20 16 FA OR 38 17 17 47 GA OT 0 99 LY HI AZ PH ID AR E MA 25 CY MG TA B ME 29 01 02 4. 1 00 CU Ac TR 30 -1 -1 00 00 LL ti ON 00 3- 0- 0 01 ve ID 22 20 20 17 FA AZ 70 17 17 83 GA OL 5 51 LY E 50 PH 0 AR MG MA CY TA BL ET BU 00 01 02 30 30 00 CU Ac SP 11 -0 -0 .0 00 LL ti IR 51 6- 3- 00 01 ve ON 69 20 20 17 FA E 20 17 17 71 GA HC 2 74 LY L 15 PH AR MG MA CY TA BL ET FL 00 01 02 2. 7 00 CU Ac UC 17 -0 -0 00 00 LL ti ON 25 9- 3- 0 01 ve AZ 41 20 20 17 FA OL 21 17 17 74 GA E 1 62 LY 15 0 PH MG AR MA TA CY BL ET SE 65 12 01 30 30 00 CU Ac RT 86 -1 -0 .0 00 LL ti RA 20 4- 9- 00 01 ve LI 01 20 20 16 FA NE 30 16 17 47 GA 5 91 LY HC L PH 10 AR 0 MA MG CY TA BL ET ME 68 12 01 30 30 00 CU Ac TO 00 -1 -0 .0 00 LL ti NY 10 4- 9- 00 01 ve OL 12 20 20 16 FA OL 10 16 17 47 GA 3 98 LY KEITH CC PH AR ER MA CY 25 MG TA B HY 00 12 01 [address] 17 -1 -0 .0 00 LL ti OC 22 4- 9- 00 01 ve HL 08 20 20 16 FA OR 38 16 17 47 GA OT 0 99 LY HI AZ PH [...] 2. 5- IN 0. C 02 5 [place] 57 09 09 0 15 6 NO [...] PH Y EY AR C E MA CY OP S IN C LO 37 [...] bl PH e AR M IN C Encounters Encounter Start End Date Code Location Performer Type Date [facility] - 7 7 [facility] 7 7 [facility] 7 7 [facility] [place] [facility] 7 [facility] 7 7 [facility] [address] [facility] [place] [id number] [facility] 5 5 [facility] [place] NEW - 4 4 [facility] OUTPATIEN MED CTR [facility] NEW - 4 4 [facility] NEW - 0 0 [facility] OUTPATIEN MED CTR [facility] NEW - 0 0 [facility] OUTPATIEN MED CTR [facility] NEW - 9 9 [facility] OUT[facility]
--- OUTSIDE RECORDS SUMMARY | 2017-04-13 12:53 | External Medical Summary Rpt | CCD ---
Author Author , FLORENCIA TORRESASHLEE Address Unknown Phone [email or web address] Care Team Providers Care Film Archivist Name Role Phone GURMEET IRF, GURMEET Unavailable Unavailable IRF ADLER, ADLER Unavailable Unavailable [facility], Unavailable Unavailable [facility] PREMA CRY, Unavailable Unavailable PREMA CRY GEORGIANA JULIAN, Unavailable Unavailable GEORGIANA JULIAN [facility] Unavailable Unavailable HOSPITA, [facility], Unavailable Unavailable [facility] Unavailable Unavailable INC, [facility] Unavailable Unavailable HOSPITAL P, [facility] P [facility] Unavailable Unavailable CARE, IN, [facility], [place] EDGAR STEPHENS, Unavailable Unavailable EDGAR STEPHENS [facility] [employer] Unavailable Unavailable [facility] [employer]. MARTINA MACK Unavailable Unavailable [facility] [place] Unavailable Unavailable PRACTICE, [facility], Unavailable Unavailable [facility] PRIMARY Unavailable Unavailable CARE CL, [facility] CL [facility], Unavailable Unavailable [facility]available Unavailable INC, [facility] Unavailable [facility]available CARE, [facility] Unavailable Unavailable [facility], [facility] PHYSICIANS, Unavailable Unavailable [facility], [facility], [facility] Unavailable Unavailable OF NOT, [facility] OF NOT SCIFRES, [facility] Unavailable Unavailable [facility], [facility] Unavailable Unavailable [facility]ENCY SERV, [facility] Unavailable Unavailable GRAPHICS PROGRAMMER ST, [facility] GRAPHICS PROGRAMMER [facility] Unavailable Unavailable SADI, [facility] [employer], Unavailable Unavailable INC, [employer] Purpose Continuity of Care Document - [...] N390 URINARY 09-02-2016 [facility] TRACT PHYSICIANS, INFECTION [facility] SITE NOT SPECIFIED R112 NAUSEA WITH 09-02-2016 [facility] VOMITING PHYSICIANS, UNSPECIFIED [facility] J209 ACUTE 08-23-2016 [facility] UNSPECIFIED INC K529 NONINFECTIV 08-17-2016 [facility] E PHYSICIANS, GASTROENTER [facility] ITIS & COLITIS UNS R0602 SHORTNESS 08-17-2016 SU[facility]IE OF BREATH PHYSICIANS, [facility] [id number] OTHER LONG 08-17-2016 [facility] P DRUG THERAPY J0390 ACUTE 06-14-2016 ST. TONSILLITIS [facility] AVITIA UNSPECIFIED E669 OBESITY 05-30-2016 LABONE OF UNSPECIFIED [employer] N926 IRREGULAR 05-30-2016 [facility] OF MENSTRUATIO [employer] 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 GENERAL RTN W/O ABNORMAL FIND Z124 ENCOUNTER 05-16-2016 LABONE OF OTHER [email or web address]. SCREENING MALIG NEOPLASM CERVIX K029 DENTAL 03-08-2016 [facility] UNSPECIFIED HOSPITA K0889 OTHER 03-08-2016 [facility] SPECIFIED N EMERGENCY DISORDERS PHYS OF TEETH SUPPORT STRCT J020 STREPTOCOCC 01-18-2016 [facility] [employer] PHARYNGITIS SYSTEMS, INC B354 TINEA 04-23-2015 [facility] CORPORBanno SYSTEM[employer], INC 4019 UNSPECIFIED 01-03-2015 [facility] [place]ITA N 69300 UNSPECIFIED 01-03-2015 [facility] 5259 UNSPECIFIED 01-03-2015 [facility] DISORDER N EMERGENCY TEETH&SUPPO SERV RTING STRUCTURES 29647 ALTERED 12-14-2014 [facility]AL [facility]OC[facility] STATUS OF [facility] 34227 GENERALIZED 11-17-2014 NEW ANXIETY [facility] DISORDER FAMILY PRACTICE 79770 UNSPECIFIED 08-01-2014 NEW VIRAL [facility] INFECTION MED CTR IN CCE & UNS SITE 37655 DEHYDRATION 08-01-2014 [facility] MED [facility] 2768 HYPOPOTASSE 08-01-2014 NEW SAAD [facility] MED CTR 5589 OTH&UNSPEC 07-30-2014 ST NONINFECTIO [facility] US MED CTR GRAPHICS PROGRAMMER GASTROENTER ST ITIS&COLITI S 5718 OTHER 07-30-2014 RADIOLOGY CHRONIC ASSOCIATES NONALCOHOLI OF [facility] C LIVER DISEASE 44500 NAUSEA WITH 07-30-2014 RADIOLOGY VOMITING ASSOCIATES OF [facility] 58086 DIARRHEA 07-30-2014 RAD[facility] ASSOCIATES OF [facility] 41953 ABDOMINAL 07-30-2014 RADIOLOGY PAIN, ASSOCIATES UNSPECIFIED OF [facility] SITE V5869 LONG-TERM 07-30-2014 ST (CURRENT) [facility] USE OF MED CTR GRAPHICS PROGRAMMER OTHER ST MEDICATIONS 7291 UNSPECIFIED 04-14-2014 NEW MYALGIA [facility] AND FAMILY MYOSITIS PRACTICE V7109 OBSERVATION 03-13-2014 [facility] S[facility]ED [facility] MENTAL CONDITION 4659 ACUTE URIS 02-28-2014 NEW OF [facility] UNSPECIFIED FAMILY SITE PRACTICE 7862 COUGH 02-28-2014 [facility] FAMILY PRACTICE 9221 CONTUSION 01-12-2014 NEW OF CHEST [facility] WALL MED CTR 9598 INJURY 01-12-2014 NEW OTH&UNSPEC [facility] OT SPEC MED CTR SITES INCL MULTIPLE 7089 UNSPECIFIED 11-20-2013 NEW URTICARIA [facility] MED CTR 84713 HIDRADENITI 07-30-2013 NEW S [facility] PRIMARY CARE CL 4660 ACUTE 05-20-2013 NEW BRONCHITIS [facility] PRIMARY CARE CL 462 ACUTE 06-01-2012 NEW PHARYNGITIS [facility] PRIMARY CARE CL 3671 MYOPIA 12-20-2011 [facility] IRF 3688 OTHER 12-19-2011 [facility] IRF SPECIFIED VISUAL DISTURBANCE S 17866 INSOMNIA 12-01-2011 PREMA UNSPECIFIED CRY 94076 OTHER 12-01-2011 PREMA MALAISE AND CRY FATIGUE 80115 CHEST PAIN 12-01-2011 PREMA UNSPECIFIED CRY 4619 ACUTE 08-03-2011 NEW SINUSITIS, [facility] [place]PECIFIED [place] [address] OBESITY, 01-22-2010 [facility] UNSPECIFIED [facility]ALTH SYSTEM[facility], INC 4779 ALLERGIC 01-22-2010 [facility] RHINITIS HEALTH CAUSE SYSTEMS, UNSPECIFIED INC 7821 RASH AND 01-22-2010 [facility] OTHER HEALTH NONSPECIFIC SYSTEMS, SKIN INC ERUPTION 0088 INTESTINAL 01-19-2010 NEW INFECTION [facility] DUE TO MED CTR OTHER ORGANISM NEC 3814 NONSUPPRATV 09-18-2009 NEW OTITIS [facility] MEDIA NOT MEDICAL CTR SPEC RURAL [facility] 98175 OVERWEIGHT 07-21-2009 NEW [facility]IZONS MEDICAL CTR [facility] 73857 UNSPECIFIED 07-21-2009 NEW H[facility]IZONS CONJUNCTIVI MEDICAL CTR TIS [facility] 64226 UNSPECIFIED 05-22-2009 NEW SITE OF HORIZONS ANKLE MED CTR SPRAIN AND STRAIN 62883 SPRAIN AND 05-22-2009 NEW STRAIN OF [facility] UNSPECIFIED MED CTR SITE OF FOOT E8859 FALL FROM 05-22-2009 NEW OTHER [facility] SLIPPING MED CTR TRIPPING OR STUMBLING 490 BRONCHITIS 02-26-2009 NEW NOT [facility] SPECIFIED MED CTR ACUTE OR CHRONIC 3829 UNSPECIFIED 02-12-2008 NEW OTITIS [facility] MEDIA MEDICAL CTR [facility] 01901 VOMITING 02-12-2008 NEW ALONE [facility] V202 ROUTINE 12-17-2007 NEW INFANT OR [facility] CHILD MEDICAL [facility] 7806 FEVER & OTH 06-25-2007 [facility] V720 EXAMINATION 06-01-2007 [...] -1 .0 00 LL ti MN 10 6- 0- 00 01 ve OL [...] AR 20 MA CY TA BL ET [place] 51 09 10 28 28 00 [...] -1 .0 00 LL ti [place] 10 9- 3- 00 01 ve OL [...] [facility] 7 7 [facility] 7 7 [facility] - 7 7 [facility] [place] [facility] 7 7 [facility] - 7 7 [place] [facility] 6 6 N OUTPATIEN [facility] [place] [id number] 5 N OUTPATIEN [facility] 5 5 [facility] 5 [place] OUTPATI [facility] - 4 4 [facility] - 4 4 [facility] - 0 0 [facility] NEW - 0 0 [facility] NEW - 9 9 [facility]
--- OUTSIDE RECORDS SUMMARY | 2017-04-13 12:54 | External Medical Summary Rpt | CCD ---
Author Author , FLORENCIA DON Address Unknown Phone [email or web address] Support Name Relationship Address Phone [place], Next [...]
--- OUTSIDE RECORDS SUMMARY | 2017-04-13 12:54 | External Medical Summary Rpt | CCD ---
Author Author , FLORENCIA DON Address Unknown Phone [email or web address] Support Name Relationship Address Phone [place], Next [...]
== END 2017-04-13 12:51 | disposition home or self-care (01) ==
LOC: UTC 11:10
DX: L50.9 Urticaria, unspecified (principal)